=== PATIENT | female | born 1955 | race Caucasian/White ===

== ENCOUNTER 2020-01-11 09:54 | Outpatient (CLI) | payer OTHER, SELFPAY ==
[2020-01-11 13:11] LABS: Hematocrit 41.8 % (37.0-47.0); Hemoglobin 13.9 g/dL (12.0-15.0); Mean Corpuscular HGB Conc 33.3 g/dl (32-36); Mean Corpuscular Hemoglobin 33.8 pg (26-34); Mean Corpuscular Volume 101.7 fl (80-100); Mean Platelet Volume 11.5 fl (7.4-10.4); Platelet Count Result 309 k/mm3 (150-375); Red Blood Count 4.11 M/mm3 (4.2-5.4); Red Cell Distribution Width 13.2 % (11.5-14.5); White Blood Count 7.2 K/mm3 (4.5-10.0)
[2020-01-11 13:15] LABS: Add Urine Microscopic? YES; Appearance Urine Clear (Clear); Bacteria Urine Trace /hpf; Bilirubin Urine Negative (Negative); Blood Urine Negative (Negative); Color Urine Yellow (Yellow); Glucose Urine UA Negative (Negative); Ketones Urine Negative (Negative); Leukocyte Esterase Ur Trace LEU/UL (Negative); Nitrate Urine Negative (Negative); Protein Urine Negative (Negative); RBC Urine 0-2 /hpf (0-2); Specific Grav Ur 1.009 (1.001-1.035); Squamous Epithelial Cell Urine Rare /hpf (Few); Urobilinogen Urine Negative mg/dL (<2.0); WBC Urine 0-3 /hpf
[2020-01-11 13:17] LABS: Alanine Aminotransferase 21 U/L (4-35); Albumin Level 4.4 g/dL (3.5-5.1); Alkaline Phosphatase 72 U/L (38-126); Aspartate Amino Transferase 24 U/L (14-36); Bilirubin,Total 0.5 mg/dL (0.2-1.3); Blood Urea Nitrogen 15 mg/dL (7-17); CRP 0.7 mg/dL (<1.0); Calcium 9.5 mg/dL (8.4-10.2); Carbon Dioxide 23 mmol/L (22-30); Chloride 103 mmol/L (98-107); Estimated Glomerular Filt Rate > 60; Glucose 93 mg/dL (65-105); Potassium 4.9 mmol/L (3.4-5.0); Sodium 137 mmol/L (137-145)
== END 2020-01-11 09:55 | disposition home or self-care (01) ==
LOC: ANHWCLAB 16:15
PROVIDERS: Visit Provider Internal Medicine
DX: M35.3 Polymyalgia rheumatica (principal); M19.90 Unspecified osteoarthritis, unspecified site
CPT/HCPCS: 36415; 80053; 81001; 85027; 86140

== ENCOUNTER 2020-11-25 12:02 | Outpatient (CLI) | payer OTHER, SELFPAY ==
--- NOTE | ~2020-11-25 | XR_ITS ---
EXAMINATION: HAND-AURA ARTHRITIS 3+VIEWS DATE: 11/25/2020 12:22 INDICATION: Rheumatoid arthritis without rheumatoid factor. TECHNIQUE: Posteroanterior, lateral, and oblique views of the left and of the right hands as well as a ballcatchers view of both hands were obtained. COMPARISON: 11/29/2018 FINDINGS: Interval progression in mild palmar subluxation at the right second metacarpophalangeal joint. Bone a lignment is otherwise normal at the bilateral hands and wrists. No fractures. Mild relatively uniform joint space narrowing at multiple bilateral metacarpophalangeal joints without/osteophytosis or eros ions to more specifically suggest either osteoarthritis or inflammatory arthritis such as rheumatoid respectively. Mild osteoarthritis contrast by nonuniform joint space narrowing and/or small marginal osteophytes at the bilateral first carpal metacarpal, first metacarpophalangeal, first interphalangea l and multiple predominantly distal interphalangeal joints. Small lucencies at the left lunate and pr oximal pole of the scaphoid with thin sclerotic margins which would favor degenerative subchondral cy sts over erosions. IMPRESSION: 1. Mild polyarticular osteoarthritis with typical distribution. 2. Nonspecific mild joint space narrowing at the bilateral metacarpophalangeal joints without osteoph ytosis or erosions which remains equivocal for either osteoarthritis or inflammatory arthritis such a s rheumatoid. 3. Progression in mild palmar subluxation at the right second metacarpophalangeal joint. Reviewed, dictated and finalized at location B. SAMPLING AND MONITORING IMPRESSION: 1. Mild polyarticular osteoarthritis with typical distribution. 2. Nonspecific mild joint space narrowing at the bilateral metacarpophalangeal joints without osteophytosis or erosions which remains equivocal for either ost eoarthritis or inflammatory arthritis such as rheumatoid. 3. Progression in mild palmar subluxation at the right second metacarpophalange al joint.
== END 2020-11-25 12:03 ==
PROVIDERS: Visit Provider Internal Medicine
DX: M06.041 Rheumatoid arthritis without rheumatoid factor, right hand (principal); M06.042 Rheumatoid arthritis without rheumatoid factor, left hand
CPT/HCPCS: 73130

== ENCOUNTER 2020-12-08 14:58 | Outpatient (CLI) | payer OTHER, SELFPAY ==
--- NOTE | ~2020-12-08 | MR_ITS ---
EXAMINATION: MR hand LT wo con, MR hand RT wo con DATE: 12/08/2020 16:09 INDICATION: Rheumatoid arthritis with rheumatoid factor TECHNIQUE: 1. Magnetic resonance imaging (MRI) of the left hand was performed without intravenous contrast to in clude the wrist, carpus, metacarpals and digits. Sequences included axial, sagittal and coronal T1-we ighted FSE and T2-weighted FS FSE. 2. MRI of the right hand was performed without intravenous contrast to include the wrist, carpus, met acarpals and digits. Sequences included axial, sagittal and coronal T1-weighted FSE and T2-weighted F S FSE. COMPARISON: Bilateral hand radiographs dated 11/25/2020 FINDINGS: Left hand: Bone alignment is normal. There are tiny periarticular foci of increased T2 signal at the radial/vola r aspects of the heads of the third and fourth metacarpals more subtly at the ulnar side of the head of the second metacarpal near the insertion of the collateral ligaments, the first two signal intensi ty suggesting degenerative cyst versus erosions, the latter slightly less intense with differential i ncluding focal reactive edema. Bone marrow signal is otherwise normal. Due to the [id number] encom passing the entire hand and wrist for assessment of joint space narrowing is less than with the prior radiographs where there were tiny marginal osteophytes and mild joint space narrowing is present det cherrie. Physiologic amount fluid in the joint spaces. No significant synovitis at about the joint spac e or along the tendon sheaths. The flexor and extensor tendons appear normal as do the collateral lig ament complexes. Small focus of susceptibility artifact centered along the skin surface between the p almar aspect of the first distal phalanx and the radial side of the base of the second proximal phala nx. Right hand: Bone alignment is normal. As at the contralateral left hand there are small foci of periarticular inc reased T2 signal at the ulnar side of the head of the second metacarpal and more prominently at the u lnar side of the head of the second metacarpal, the latter with thin sclerotic margins evident on the prior radiographs. Additional more prominent increased T2 signal associated with chronic cystic schrader ges with sclerotic margins and with mild surrounding marrow edema at the ulnar side of the lunate and at the ulnar side of the scaphoid, the former which could be related to ulnocarpal impaction with lee ggestion of mild ulnar positive variance. Very small small amount of fluid consistent with tenosynovi tis along the otherwise normal-appearing flexor tendons at the first proximal phalanx and at the head of the second metacarpal. IMPRESSION: 1. Small periarticular foci of increased fluid signal at the heads of several metacarpals both the le ft and right hands suggesting possibility of an inflammatory arthritis. The distribution at the metac arpophalangeal joints would be atypical for rheumatoid although no significant joint space narrowing is appreciated on the prior radiographs. Differential would also include gout. 2. Additional T2 hyperintense lesions with sclerotic margins at the right lunate and base of the scap hoid which could represent chronic erosions but more likely to represent degenerative cystic change, the lunate potentially related to ulnocarpal impaction with mild right ulnar positive variance. 3. Mild tenosynovitis along the flexor tendons of the right first and second digits which could be re lated to either trauma/overuse or inflammatory including gout or rheumatoid. Reviewed, dictated and finalized at location A. STOR RELATIONS COORDINATOR IMPRESSION: 1. Small periarticular foci of increased fluid signal at the heads of several m etacarpals both the left and right hands suggesting possibility of an inflammat
== END 2020-12-08 14:59 | disposition home or self-care (01) ==
PROVIDERS: Visit Provider Internal Medicine
DX: M06.041 Rheumatoid arthritis without rheumatoid factor, right hand (principal); M06.042 Rheumatoid arthritis without rheumatoid factor, left hand; M89.9 Disorder of bone, unspecified; M65.842 Other synovitis and tenosynovitis, left hand; M65.841 Other synovitis and tenosynovitis, right hand
CPT/HCPCS: 73218

== ENCOUNTER 2020-12-31 13:37 | Outpatient (CLI) | payer OTHER, SELFPAY ==
[2020-12-31 16:56] LABS: Hematocrit 39.4 % (37.0-47.0); Hemoglobin 13.5 g/dL (12.0-15.0); Mean Corpuscular HGB Conc 34.3 g/dl (32-36); Mean Corpuscular Hemoglobin 33.6 pg (26-34); Mean Platelet Volume 11.7 fl (7.4-10.4); Platelet Count Result 289 k/mm3 (150-375); Red Blood Count 4.02 M/mm3 (4.2-5.4); Red Cell Distribution Width 12.7 % (11.5-14.5)
[2020-12-31 16:59] LABS: Add Urine Microscopic? YES; Appearance Urine Clear (Clear); Bilirubin Urine Negative (Negative); Blood Urine Negative (Negative); Color Urine Colorless (Yellow); Glucose Urine UA Negative (Negative); Ketones Urine Negative (Negative); Leukocyte Esterase Ur 1+ LEU/UL (Negative); Nitrate Urine Negative (Negative); Protein Urine Negative (Negative); RBC Urine 0-2 /hpf (0-2); Specific Grav Ur 1.008 (1.001-1.035); Squamous Epithelial Cell Urine Few /hpf (Few); Urobilinogen Urine Negative mg/dL (<2.0); WBC Urine 0-3 /hpf
[2020-12-31 17:09] LABS: Alanine Aminotransferase 17 U/L (4-35); Albumin Level 4.3 g/dL (3.5-5.1); Alkaline Phosphatase 55 U/L (38-126); Anion Gap 9 mmol/L (8-16); Aspartate Amino Transferase 25 U/L (14-36); Bilirubin,Total 0.4 mg/dL (0.2-1.3); Blood Urea Nitrogen 19 mg/dL (7-17); CRP < 0.5 mg/dL (<1.0); Calcium 9.6 mg/dL (8.4-10.2); Carbon Dioxide 25 mmol/L (22-30); Chloride 103 mmol/L (98-107); Estimated Glomerular Filt Rate > 60; Glucose 72 mg/dL (65-105); Potassium 4.6 mmol/L (3.4-5.0); Sodium 137 mmol/L (137-145)
[2020-12-31 17:38] LABS: Erythrocyte Sedimentation Rate 15 mm/hr (0-20)
== END 2020-12-31 13:38 | disposition home or self-care (01) ==
LOC: ANHWCLAB 13:40
PROVIDERS: Referring Provider Internal Medicine; Visit Provider Internal Medicine
DX: Z79.899 Other long term (current) drug therapy (principal); M06.041 Rheumatoid arthritis without rheumatoid factor, right hand; M06.042 Rheumatoid arthritis without rheumatoid factor, left hand; M19.90 Unspecified osteoarthritis, unspecified site
CPT/HCPCS: 36415; 80053; 81001; 85027; 85652; 86140

== ENCOUNTER 2021-05-28 07:16 | Outpatient (CLI) | payer OTHER, SELFPAY ==
--- NOTE | ~2021-05-28 | MM_ITS ---
EXAMINATION: MM screening ceasar BI w jack HISTORY: Screening mammogram TECHNIQUE: Craniocaudal and mediolateral oblique 3-D tomosynthesis images were obtained and synthetic 2-D images were generated. CAD analysis was submitted and interpreted. COMPARISON: 03/15/2019, 02/25/2017, 01/14/2016 and lateral digital screening mammogram examinations BREAST PARENCHYMAL COMPOSITION: The breasts are almost entirely fatty. FINDINGS: There is no evidence of suspicious mass, calcification, or architectural distortion to sugg est malignancy in either breast. There has been no suspicious interval change. IMPRESSION: 1. No mammographic evidence of malignancy. 2. Recommend routine screening mammography in one year. BI-RADS Category 1: Negative Reviewed, dictated and finalized at location A.
== END 2021-05-28 07:17 | disposition home or self-care (01) ==
PROVIDERS: Visit Provider Physician Assistant
DX: Z12.31 Encounter for screening mammogram for malignant neoplasm of breast (principal)
CPT/HCPCS: 77063; 77067

== ENCOUNTER 2021-08-12 07:33 | Outpatient (CLI) | payer OTHER, SELFPAY ==
[2021-08-12 15:10] LABS: Hematocrit 36.8 % (37.0-47.0); Hemoglobin 12.9 g/dL (12.0-15.0); Mean Corpuscular HGB Conc 35.1 g/dl (32-36); Mean Corpuscular Hemoglobin 35.9 pg (26-34); Mean Corpuscular Volume 102.5 fl (80-100); Platelet Count Result 320 k/mm3 (150-375); Red Blood Count 3.59 M/mm3 (4.2-5.4); Red Cell Distribution Width 13.2 % (11.5-14.5); White Blood Count 5.5 K/mm3 (4.5-10.0)
[2021-08-12 15:18] LABS: Alanine Aminotransferase 23 U/L (4-35); Albumin Level 4.5 g/dL (3.5-5.1); Alkaline Phosphatase 56 U/L (38-126); Anion Gap 10 mmol/L (8-16); Aspartate Amino Transferase 29 U/L (14-36); Bilirubin,Total 0.5 mg/dL (0.2-1.3); Blood Urea Nitrogen 13 mg/dL (7-17); CRP < 0.5 mg/dL (<1.0); Carbon Dioxide 23 mmol/L (22-30); Chloride 103 mmol/L (98-107); Estimated Glomerular Filt Rate > 60; Glucose 127 mg/dL (65-110); Sodium 136 mmol/L (137-145)
[2021-08-12 15:57] LABS: Add Urine Microscopic? YES; Appearance Urine Clear (Clear); Bilirubin Urine Negative (Negative); Blood Urine Negative (Negative); Color Urine Straw (Yellow); Glucose Urine UA Negative (Negative); Ketones Urine Negative (Negative); Leukocyte Esterase Ur Trace LEU/UL (Negative); Nitrate Urine Negative (Negative); Protein Urine Negative (Negative); RBC Urine 0-2 /hpf (0-2); Specific Grav Ur 1.004 (1.001-1.035); Transitional Epi Cells Urine Rare /hpf (None Seen); Urobilinogen Urine Negative mg/dL (<2.0); WBC Urine 0-3 /hpf
[2021-08-12 16:00] LABS: Erythrocyte Sedimentation Rate 19 mm/hr (0-20)
[2021-08-14 23:45] LABS: NIL 0.07 IU/mL; Quantiferon TB Plus, 1T NEGATIVE (NEGATIVE); TB1-NIL <0.00 IU/mL; TB2-NIL <0.00 IU/mL
== END 2021-08-12 07:34 | disposition home or self-care (01) ==
PROVIDERS: Visit Provider Internal Medicine
DX: M06.041 Rheumatoid arthritis without rheumatoid factor, right hand (principal); M06.042 Rheumatoid arthritis without rheumatoid factor, left hand; M19.90 Unspecified osteoarthritis, unspecified site
CPT/HCPCS: 36415; 80053; 81001; 85027; 85652; 86140; 86480

== ENCOUNTER 2021-12-07 10:34 | Outpatient (CLI) | payer OTHER, SELFPAY ==
[2021-12-07 16:46] LABS: Hematocrit 45.1 % (37.0-47.0); Hemoglobin 15.1 g/dL (12.0-15.0); Mean Corpuscular HGB Conc 33.5 g/dl (32-36); Mean Corpuscular Hemoglobin 34.7 pg (26-34); Mean Corpuscular Volume 103.7 fl (80-100); Mean Platelet Volume 10.8 fl (7.4-10.4); Platelet Count Result 332 k/mm3 (150-375); Red Blood Count 4.35 M/mm3 (4.2-5.4); Red Cell Distribution Width 12.4 % (11.5-14.5); White Blood Count 6.9 K/mm3 (4.5-10.0)
[2021-12-07 17:21] LABS: Erythrocyte Sedimentation Rate 11 mm/hr (0-20)
[2021-12-07 17:41] LABS: Alanine Aminotransferase 30 U/L (4-35); Albumin Level 4.9 g/dL (3.5-5.1); Alkaline Phosphatase 58 U/L (38-126); Anion Gap 9 mmol/L (8-16); Aspartate Amino Transferase 35 U/L (14-36); Bilirubin,Total 0.7 mg/dL (0.2-1.3); Blood Urea Nitrogen 13 mg/dL (7-17); CRP < 0.5 mg/dL (<1.0); Calcium 9.9 mg/dL (8.4-10.2); Carbon Dioxide 25 mmol/L (22-30); Chloride 101 mmol/L (98-107); Estimated Glomerular Filt Rate > 60; Glucose 84 mg/dL (65-110); Potassium 4.5 mmol/L (3.4-5.0); Sodium 135 mmol/L (137-145)
[2021-12-08 07:58] LABS: Add Urine Microscopic? YES; Appearance Urine Clear (Clear); Bilirubin Urine Negative (Negative); Blood Urine Negative (Negative); Color Urine Straw (Yellow); Glucose Urine UA Negative (Negative); Ketones Urine Negative (Negative); Leukocyte Esterase Ur Trace LEU/UL (Negative); Nitrate Urine Negative (Negative); Protein Urine Negative (Negative); RBC Urine 0-2 /hpf (0-2); Specific Grav Ur 1.009 (1.001-1.035); Squamous Epithelial Cell Urine Rare /hpf (Few); Urobilinogen Urine Negative mg/dL (<2.0); WBC Urine 0-3 /hpf
== END 2021-12-07 10:35 | disposition home or self-care (01) ==
LOC: ANHWCLAB 10:37
PROVIDERS: Referring Provider Internal Medicine; Visit Provider Internal Medicine
DX: M06.041 Rheumatoid arthritis without rheumatoid factor, right hand (principal); M06.042 Rheumatoid arthritis without rheumatoid factor, left hand; R06.02 Shortness of breath; M19.90 Unspecified osteoarthritis, unspecified site
CPT/HCPCS: 36415; 80053; 81001; 85027; 85652; 86140

== ENCOUNTER 2022-03-03 07:32 | Outpatient (CLI) | payer OTHER, SELFPAY ==
[2022-03-03 16:24] LABS: Hematocrit 42.1 % (37.0-47.0); Hemoglobin 13.9 g/dL (12.0-15.0); Mean Corpuscular Hemoglobin 35.2 pg (26-34); Mean Corpuscular Volume 106.6 fl (80-100); Mean Platelet Volume 10.8 fl (7.4-10.4); Platelet Count Result 313 k/mm3 (150-375); Red Blood Count 3.95 M/mm3 (4.2-5.4); White Blood Count 7.8 K/mm3 (4.5-10.0)
[2022-03-03 16:35] LABS: Alanine Aminotransferase 20 U/L (4-35); Albumin Level 4.7 g/dL (3.5-5.1); Alkaline Phosphatase 57 U/L (38-126); Anion Gap 7 mmol/L (8-16); Aspartate Amino Transferase 31 U/L (14-36); Bilirubin,Total 0.3 mg/dL (0.2-1.3); Blood Urea Nitrogen 16 mg/dL (7-17); CRP < 0.5 mg/dL (<1.0); Calcium 9.1 mg/dL (8.4-10.2); Carbon Dioxide 28 mmol/L (22-30); Chloride 100 mmol/L (98-107); Estimated Glomerular Filt Rate > 60; Glucose 67 mg/dL (65-110); Potassium 4.2 mmol/L (3.4-5.0); Sodium 135 mmol/L (137-145)
[2022-03-03 16:37] LABS: Appearance Urine Clear (Clear); Bilirubin Urine Negative (Negative); Blood Urine Negative (Negative); Color Urine Yellow (Yellow); Glucose Urine UA Negative (Negative); Ketones Urine Negative (Negative); Leukocyte Esterase Ur 1+ LEU/UL (Negative); Nitrate Urine Negative (Negative); Protein Urine Negative (Negative); Urobilinogen Urine 0.2 mg/dL (<2.0); pH Urine 6.5 (5.0-9.0)
[2022-03-03 16:42] LABS: Bacteria Urine Trace /hpf; Mucus Urine Rare /lpf; RBC Urine 0-2 /hpf (0-2); Squamous Epithelial Cell Urine Occasional /hpf (Few); WBC Urine 0-3 /hpf
[2022-03-03 17:06] LABS: Erythrocyte Sedimentation Rate 12 mm/hr (0-20)
[2022-03-03 17:13] LABS: Add Urine Microscopic? YES
== END 2022-03-03 07:33 | disposition home or self-care (01) ==
LOC: ANHWCLAB 07:36
PROVIDERS: Visit Provider Internal Medicine
DX: M06.041 Rheumatoid arthritis without rheumatoid factor, right hand (principal); M06.042 Rheumatoid arthritis without rheumatoid factor, left hand
CPT/HCPCS: 36415; 80053; 81001; 85027; 85652; 86140

== ENCOUNTER → 2022-10-30 08:18 | Outpatient (CLI) | payer OTHER, SELFPAY ==
--- NOTE | ~2022-10-30 | MR_ITS ---
EXAMINATION: MR lumbar spine wo con DATE: 10/30/2022 08:55 INDICATION: Chronic low back pain. Lumbar degenerative disc disease. TECHNIQUE: Magnetic resonance imaging (MRI) of the lumbar spine was performed without intravenous con trast. Sequences included sagittal T2-weighted FSE, sagittal T2-weighted FS FSE, sagittal T1-weighted FSE, and axial T2-weighted FSE. COMPARISON: None FINDINGS: Bone alignment is normal. Vertebral body heights are normal. There is moderately decreased disc height at T12-L1 and L1-L2, mildly decreased disc height at L2-L3, moderately decreased disc hei ght at L3-L4, and severely decreased disc height at L4-L5 and L5-S1 with endplate remodeling. The dis farhad spinal cord signal intensity is normal. The conus medullaris is at T12-L1. The following disc lev els are specifically discussed: L1-L2: The disc is bulging and has an annular fissure. There is mild bilateral facet joint osteoarthr itis. There is mild bilateral neural foraminal stenosis. There is mild central canal stenosis. L2-L3: The disc is bulging and has an annular fissure. There is mild right facet joint osteoarthritis . There is mild bilateral neural foraminal stenosis. There is mild central canal stenosis. L3-L4: The disc is bulging and has an annular fissure. There is mild bilateral facet joint osteoarthr itis. There is mild bilateral neural foraminal stenosis. There is mild central canal stenosis. L4-L5: The disc is bulging and has an annular fissure. There is no facet joint osteoarthritis. There is mild bilateral neural foraminal stenosis. There is mild central canal stenosis. L5-S1: The disc is bulging and has an annular fissure. There is mild bilateral facet joint osteoarthr itis. There is mild bilateral neural foraminal stenosis. There is mild central canal stenosis. IMPRESSION: 1. Severe lumbar spondylosis. Reviewed, dictated and finalized at location A. WARE INSTALLATION ENGINEER
== END ==
PROVIDERS: PCP Physician Assistant; Visit Provider Physician Assistant
DX: M51.36 Other intervertebral disc degeneration, lumbar region (principal); M47.896 Other spondylosis, lumbar region
CPT/HCPCS: 72148

== ENCOUNTER 2022-11-03 08:11 | Outpatient (CLI) | payer OTHER, SELFPAY ==
--- NOTE | 2022-11-04 10:33 | WPDHOMESLEEP ---
Sleep Study - Home Unattended Date of Study: 11/03/22 Ordering Provider: Tina Gallagher, PA Interpreting Provider: Shalini Kam MD [facility] Type: Watch PAT Height: 1.6 m Weight: 104.326 kg Body Mass Index: 40.7 Neck Circumference (inches): 15.75 [place]: 8 Reason for Sleep Study Hypersomnolence Sleep History Ciarra Rainey is a 66-year-old woman with sleeping difficulties for several years. She has excessive daytime sleepiness. She wakes up feeling tired. This happens nightly. She has difficulty falling asleep and staying asleep. She has pyrometer temperature regulator awakenings. She occasionally awakens from sleep feeling short of breath. She occasionally awakens at night with heartburn, belching or coughing. She rarely snores. She does not snore loudly enough that others complain about it. She rarely has trouble sleeping with a cold. She rarely wakes up gasping for breath at night. She rarely has breathing problems at night observed by others. She occasionally sweats excessively at night and occasionally notices her heart pounding or beating irregularly at night. She rarely falls asleep during the day, rarely falls asleep involuntarily, never falls asleep while driving. She does not have loss of muscle tone with strong emotion. She rarely has daytime difficulties due to excessive sleepiness. She rarely feels paralyzed on waking or falling asleep. She constantly has vivid dreamlike scenes upon awakening falling asleep. She rarely feels afraid to go to sleep. She rarely has nightmares. She rarely remembers her dreams. She rarely has racing thoughts. She does not feel sad or depressed. She occasionally feels anxious. She occasionally has muscular tension. She rarely notices parts of her body jerking. She rarely kicks at night. She rarely has crawling and aching feelings in her legs. She occasionally has leg pain at night. She occasionally has morning jaw pain. She frequently grinds her teeth during sleep. She occasionally is bothered by pain during the day. She rarely is awakened by pain at night. She occasionally wakes up feeling stiff in the morning with sore achy muscles and pain in the neck and spine. She has headaches, palpitations and fatigue. She has insomnia. She has concentration difficulties. She takes antacids regularly. Normal bedtime is Between 9:00 p.m. and 10:00 p.m., taking 15-30 minutes to fall asleep, typically waking 2-3 times during the night. While awake, she goes to the bathroom and gets a drink of water. These awakenings occur soon after falling asleep, sometimes in the middle of the night and sometimes in the pyrometer temperature regulator hours. It may take her 1/2 hour to 1 hour to return to sleep. Normal wake time is 5:00 a.m.. On weekends, she goes to bed later, between 10:00 p.m. and 11:00 p.m., wakes between 5:00 a.m. and 6:00 a.m.. She estimates getting between 5 and 6 hours of sleep at night. She does not take naps. A short nap is not refreshing. She is usually drowsy in the morning for 1 hour or longer. Habits: Quit tobacco 14 years ago. Caffeine 3-4 cups of coffee in the morning. No alcohol or recreational drugs. [facility] Past Medical History Medical History Anxiety Arthritis GCA (giant cell arteritis) (~10/2018) Generalized osteoarthritis of multiple sites Migraines Other specified counseling Seronegative rheumatoid arthritis of both hands SOB (shortness of breath) Surgical History Surgical History History of knee replacement Hx of cholecystectomy Family History Family History Sibling Family history of obesity Depression Asthma Family history of diabetes mellitus in first degree relative Patient's sister is Hypertension Father Hypertension Family history of pancreatic cancer Patient's father is Moth
[2022-11-04 11:22] VITALS: BMI 40.7
== END 2022-11-04 08:19 | disposition home or self-care (01) ==
LOC: ANHCSM 08:13
PROVIDERS: PCP Physician Assistant; Visit Provider Physician Assistant
DX: G47.10 Hypersomnia, unspecified (principal); R06.83 Snoring; Z68.41 Body mass index [BMI] 40.0-44.9, adult
CPT/HCPCS: 95800

== ENCOUNTER 2022-12-08 12:47 | Outpatient (CLI) | payer OTHER, SELFPAY ==
[2022-12-08 13:27] LABS: Appearance Urine Clear (Clear); Bilirubin Urine Negative (Negative); Blood Urine Negative (Negative); Color Urine Yellow (Yellow); Glucose Urine UA Negative (Negative); Ketones Urine Negative (Negative); Leukocyte Esterase Ur 1+ LEU/UL (Negative); Nitrate Urine Negative (Negative); Protein Urine Negative (Negative); Specific Grav Ur 1.015 (1.001-1.035); Urobilinogen Urine 0.2 mg/dL (<2.0)
[2022-12-08 13:27] LABS: Hematocrit 40.8 % (37.0-47.0); Hemoglobin 13.7 g/dL (12.0-15.0); Mean Corpuscular HGB Conc 33.6 g/dl (32-36); Mean Corpuscular Volume 104.3 fl (80-100); Mean Platelet Volume 10.4 fl (7.4-10.4); Platelet Count Result 292 k/mm3 (150-375); Red Blood Count 3.91 M/mm3 (4.2-5.4); Red Cell Distribution Width 13.2 % (11.5-14.5); White Blood Count 6.4 K/mm3 (4.5-10.0)
[2022-12-08 13:31] LABS: Bacteria Urine Trace /hpf; RBC Urine 0-2 /hpf (0-2); Squamous Epithelial Cell Urine Rare /hpf (Few); Transitional Epi Cells Urine Rare /hpf (None Seen); WBC Urine 0-3 /hpf
[2022-12-08 13:32] LABS: Add Urine Microscopic? YES
[2022-12-08 13:48] LABS: Alanine Aminotransferase 24 U/L (6-35); Albumin Level 4.6 g/dL (3.5-5.1); Alkaline Phosphatase 69 U/L (38-126); Anion Gap 4 mmol/L (8-16); Aspartate Amino Transferase 27 U/L (14-36); Bilirubin,Total 0.6 mg/dL (0.2-1.3); Blood Urea Nitrogen 17 mg/dL (7-17); CRP < 0.5 mg/dL (<1.0); Calcium 9.3 mg/dL (8.4-10.2); Carbon Dioxide 29 mmol/L (22-30); Chloride 100 mmol/L (98-107); Estimated Glomerular Filt Rate > 60; Glucose 86 mg/dL (65-110); Potassium 4.4 mmol/L (3.4-5.0); Sodium 133 mmol/L (137-145)
[2022-12-08 13:53] LABS: Erythrocyte Sedimentation Rate 14 mm/hr (0-20)
[2022-12-10 19:58] LABS: NIL 0.02 IU/mL; Quantiferon TB Plus, 1T NEGATIVE (NEGATIVE)
== END 2022-12-08 12:48 | disposition home or self-care (01) ==
PROVIDERS: PCP Physician Assistant; Visit Provider Internal Medicine
DX: M31.6 Other giant cell arteritis (principal); M06.041 Rheumatoid arthritis without rheumatoid factor, right hand; M06.042 Rheumatoid arthritis without rheumatoid factor, left hand; M19.90 Unspecified osteoarthritis, unspecified site
CPT/HCPCS: 36415; 80053; 81001; 85027; 85652; 86140; 86480

== ENCOUNTER 2023-01-07 06:54 | Outpatient (CLI) | payer OTHER, SELFPAY ==
--- NOTE | 2023-01-07 | ECG_ITS ---
Measurements Intervals [place] Rate: 81 P: 57 MO: 177 QRS: 22 QRSD: 89 T: 57 QT: 352 QTc: 410 Interpretive Statements SINUS RHYTHM ANTERIOR INFARCT, AGE INDETERMINATE ABNORMAL ECG NO PREVIOUS ECG AVAILABLE FOR COMPARISON Electronically Signed On 01-07-2023 7:52:36 RADIAL DRILL PRESS OPERATOR FOR PLASTIC by Mikey Sotelo D.O.
--- NOTE | ~2023-01-07 | XR_ITS ---
EXAMINATION: XR cervical spine 4-5V DATE: 01/07/2023 08:17 INDICATION: Posterior neck pain. TECHNIQUE: 4 views of cervical spine were obtained. COMPARISON: None. FINDINGS: There is 2 mm anterolisthesis of C4 on C5. There is 4 degrees dextrocurvature of cervical s pine. There is mild kyphosis of cervical spine. Vertebral body heights are normal. There is moderatel y decreased disc height at C4-C5 and severely decreased disc height at C5-C6 and C6-C7. There is mult ilevel uncovertebral joint osteoarthritis, severe bilaterally at C5-C6 and C6-C7. There is multilevel mild to moderate facet joint osteoarthritis. There is mild central canal stenosis at C4-C5, C5-C6, a nd C6-C7. No prevertebral soft tissue swelling. IMPRESSION: 1. Severe cervical spondylosis. Reviewed, dictated and finalized at location A. P LEADER SEMICONDUCTOR TESTING
--- NOTE | ~2023-01-07 | XR_ITS ---
Clinical Indication: Shortness of breath PA and lateral views of the chest: Comparison: 04/08/2010 Findings: The lungs are clear, without evidence of focal consolidation or pleural effusion. Cardiome diastinal silhouette is within normal limits. Bones and soft tissues are unremarkable. Impression: Normal chest. Reviewed, dictated and finalized at [facility]. IAL EDUCATION COORDINATOR Impression: Normal chest.
[2023-01-07 07:23] LABS: Basophils Percent Auto 0.6 % (0.2-1.2); Eosinophils Absolute Auto 0.1 K/mm3 (0-0.3); Eosinophils Percent Auto 4.3 % (0-4.4); Hematocrit 37.9 % (37.0-47.0); Hemoglobin 13.1 g/dL (12.0-15.0); Immature Granulocyte Absolute 0.01 K/mm3 (0.00-0.031); Immature Granulocyte Percent A 0.3 % (0-0.5); Lymphocytes Absolute Auto 1.04 K/mm3 (0.9-3.2); Lymphocytes Percent Auto 32.3 % (18.3-44.2); Mean Corpuscular HGB Conc 34.6 g/dl (32-36); Mean Corpuscular Hemoglobin 34.8 pg (26-34); Mean Corpuscular Volume 100.8 fl (80-100); Monocytes Absolute Auto 0.4 K/mm3 (0.1-0.6); Monocytes Percent Auto 11.2 % (2.6-8.5); Neutrophils Absolute Auto 1.7 K/mm3 (1.3-6.7); Neutrophils Percent Auto 51.3 % (45.5-73.1); Platelet Count Result 270 k/mm3 (150-375); Red Blood Count 3.76 M/mm3 (4.2-5.4); Red Cell Distribution Width 13.5 % (11.5-14.5); White Blood Count 3.2 K/mm3 (4.5-10.0)
[2023-01-07 07:46] LABS: Alanine Aminotransferase 24 U/L (6-35); Albumin Level 4.5 g/dL (3.5-5.1); Alkaline Phosphatase 64 U/L (38-126); Anion Gap 7 mmol/L (8-16); Aspartate Amino Transferase 25 U/L (14-36); Bilirubin,Total 0.7 mg/dL (0.2-1.3); Blood Urea Nitrogen 12 mg/dL (7-17); CRP < 0.5 mg/dL (<1.0); Calcium 9.1 mg/dL (8.4-10.2); Carbon Dioxide 27 mmol/L (22-30); Chloride 105 mmol/L (98-107); Estimated Glomerular Filt Rate > 60; Glucose 100 mg/dL (65-110); Magnesium 2.1 mg/dL (1.6-2.3); Potassium 4.6 mmol/L (3.4-5.0); Sodium 139 mmol/L (137-145)
[2023-01-07 07:53] LABS: Erythrocyte Sedimentation Rate 22 mm/hr (0-20)
[2023-01-07 07:59] LABS: Appearance Urine Clear (Clear); Bacteria Urine None Seen /hpf; Bilirubin Urine Negative (Negative); Blood Urine Negative (Negative); Color Urine Yellow (Yellow); Glucose Urine UA Negative (Negative); Ketones Urine Negative (Negative); Leukocyte Esterase Ur Trace LEU/UL (Negative); Nitrate Urine Negative (Negative); Non Pathogenic Casts 0-2; Protein Urine Negative (Negative); RBC Urine 0-2 /hpf (0-2); Specific Grav Ur 1.004 (1.001-1.035); Squamous Epithelial Cell Urine None seen /hpf (Few); Urobilinogen Urine 0.2 mg/dL (<2.0); WBC Urine 0-5 /hpf
[2023-01-07 08:09] LABS: Add Urine Microscopic? YES
== END 2023-01-07 06:55 | disposition home or self-care (01) ==
PROVIDERS: PCP Physician Assistant; Visit Provider Physician Assistant
DX: R53.83 Other fatigue (principal); M79.10 Myalgia, unspecified site; M35.3 Polymyalgia rheumatica; R10.9 Unspecified abdominal pain; M47.892 Other spondylosis, cervical region; R94.31 Abnormal electrocardiogram [ECG] [EKG]
CPT/HCPCS: 36415; 71046; 72050; 80053; 81001; 82306; 82607; 83735; 84443; 85025; 85652; 86140; 93005

== ENCOUNTER 2023-01-21 06:55 | Outpatient (CLI) | payer OTHER, SELFPAY ==
[2023-01-21 07:10] LABS: Basophils Percent Auto 0.6 % (0.2-1.2); Eosinophils Absolute Auto 0.1 K/mm3 (0-0.3); Eosinophils Percent Auto 1.5 % (0-4.4); Hematocrit 40.4 % (37.0-47.0); Hemoglobin 13.6 g/dL (12.0-15.0); Immature Granulocyte Absolute 0.06 K/mm3 (0.00-0.031); Immature Granulocyte Percent A 0.9 % (0-0.5); Lymphocytes Absolute Auto 1.19 K/mm3 (0.9-3.2); Lymphocytes Percent Auto 17.4 % (18.3-44.2); Mean Corpuscular HGB Conc 33.7 g/dl (32-36); Mean Corpuscular Volume 103.9 fl (80-100); Mean Platelet Volume 9.3 fl (7.4-10.4); Monocytes Absolute Auto 0.7 K/mm3 (0.1-0.6); Monocytes Percent Auto 10.1 % (2.6-8.5); Neutrophils Absolute Auto 4.8 K/mm3 (1.3-6.7); Neutrophils Percent Auto 69.5 % (45.5-73.1); Platelet Count Result 316 k/mm3 (150-375); Red Blood Count 3.89 M/mm3 (4.2-5.4); White Blood Count 6.8 K/mm3 (4.5-10.0)
== END 2023-01-21 06:56 | disposition home or self-care (01) ==
PROVIDERS: PCP Physician Assistant; Visit Provider Physician Assistant
DX: D72.818 Other decreased white blood cell count (principal)
CPT/HCPCS: 36415; 85025

== ENCOUNTER 2023-01-27 08:14 | Outpatient (CLI) | payer OTHER, SELFPAY ==
--- NOTE | 2023-01-27 | EST_ITS ---
Patient Info Name: Ciarra Rainey Age: 67 years : 1955 Gender: Female Ht: 63 in Wt: 240 lbs BSA: 2.26 m2 HR: 68 bpm BP: 127 / 72 mmHg Heart Rhythm: Sinus Rhythm Exam Date: 01/27/2023 9:31 AM Exam Location: [facility] Stress Patient Status: Outpatient Admit Date: 01/27/2023 Staff Ordering Physician: Elliott, Tina NÚÑEZ Attending Provider: Elliott, Tina NÚÑEZ Exercise Technologist: Khalida Sandoval CT Nurse: jim vitale Exam Type: CA stress test treadmill w NM Study Info Indications R94.31 - Abnormal electrocardiogram ECG EKG R06.09 - Other forms of dyspnea A nuclear stress test was performed. Summary 1. Exercise capacity impaired at <6 METS. 2. Hypertensive blood pressure response with exercise. 3. No abnormal ST/T wave changes diagnostic of ischemia with exercise. 4. Please correlate with nuclear medicine images, reported separately. Protocol: [facility] ECG Details Stage: REST Duration (min): 1 min : 57 sec Speed (mph): 0.0 Grade (%): 0 HR (bpm): 68 SBP (mmHg): 127 DBP (mmHg): 72 METS: --- Stage: REST Duration (min): 6 min : 29 sec Speed (mph): 0.0 Grade (%): 0 HR (bpm): 71 SBP (mmHg): 127 DBP (mmHg): 72 METS: --- Stage: STAGE 1 Duration (min): 1 min : 0 sec Speed (mph): 1.7 Grade (%): 10 HR (bpm): 109 SBP (mmHg): 127 DBP (mmHg): 72 METS: --- Stage: STAGE 1 Duration (min): 2 min : 0 sec Speed (mph): 1.7 Grade (%): 10 HR (bpm): 132 SBP (mmHg): 127 DBP (mmHg): 72 METS: --- Stage: STAGE 1 Duration (min): 3 min : 0 sec Speed (mph): 1.7 Grade (%): 10 HR (bpm): 146 SBP (mmHg): 199 DBP (mmHg): 98 METS: --- Stage: STAGE 2 Duration (min): 0 min : 24 sec Speed (mph): 2.5 Grade (%): 12 HR (bpm): 152 SBP (mmHg): 199 DBP (mmHg): 98 METS: --- Stage: RECOVERY Duration (min): 0 min : 35 sec Speed (mph): 0.0 Grade (%): 0 HR (bpm): 147 SBP (mmHg): 199 DBP (mmHg): 98 METS: --- Stage: RECOVERY Duration (min): 1 min : 35 sec Speed (mph): 0.0 Grade (%): 0 HR (bpm): 117 SBP (mmHg): 199 DBP (mmHg): 98 METS: --- Stage: RECOVERY Duration (min): 2 min : 35 sec Speed (mph): 0.0 Grade (%): 0 HR (bpm): 100 SBP (mmHg): 199 DBP (mmHg): 98 METS: --- Stage: RECOVERY Duration (min): 3 min : 35 sec Speed (mph): 0.0 Grade (%): 0 HR (bpm): 88 SBP (mmHg): 201 DBP (mmHg): 82 METS: --- Stage: RECOVERY Duration (min): 4 min : 35 sec Speed (mph): 0.0 Grade (%): 0 HR (bpm): 91 SBP (mmHg): 162 DBP (mmHg): 88 METS: --- Stage: RECOVERY Duration (min): 4 min : 50 sec Speed (mph): 0.0 Grade (%): 0 HR (bpm): 88 SBP (mmHg): 162 DBP (mmHg): 88 METS: --- Rest HR: 71 bpm Peak HR: 153 bpm Rest Sys BP: 127 mmHg Peak Sys BP: 1
--- NOTE | ~2023-01-27 | NM_ITS ---
EXAMINATION: NM stress w perf spect multi DATE: 01/27/2023 12:28 INDICATION: Abnormal electrocardiogram. Dyspnea on exertion. TECHNIQUE: Rest images were obtained following intravenous administration of 11.0 mCi Tc99m tetrofosm in (Myoview). The patient performed an exercise activity. At peak exercise, 34.8 mCi Tc99m tetrofosmi n (Myoview) was administered intravenously, and supine and prone stress images were obtained. Data wa s reconstructed into short axis and horizontal and vertical long axis SPECT images. Gated SPECT image s were also obtained. COMPARISON: None. FINDINGS: There is no definite reversible or fixed perfusion abnormality to suggest ischemia or infar ction. There is no segmental wall motion abnormality. Left ventricular ejection fraction measures > 70%. IMPRESSION: 1. No definite ischemia or infarct. 2. Normal left ventricular ejection fraction measuring >70%. Reviewed, dictated and finalized at location A.
== END 2023-01-27 08:15 | disposition home or self-care (01) ==
PROVIDERS: PCP Physician Assistant; Visit Provider Physician Assistant
DX: R06.09 Other forms of dyspnea (principal); R94.31 Abnormal electrocardiogram [ECG] [EKG]
CPT/HCPCS: 78452; 93017; A9502

== ENCOUNTER → 2023-02-02 11:05 | Outpatient (CLI) | payer MEDICARE, SELFPAY ==
--- NOTE | ~2023-02-02 | MM_ITS ---
EXAMINATION: MM screening ceasar BI w jack HISTORY: Screening mammogram TECHNIQUE: Craniocaudal and mediolateral oblique 3-D tomosynthesis images were obtained and synthetic 2-D images were generated. CAD analysis was submitted and interpreted. COMPARISON: 05/28/2021, 03/15/2019, 02/25/2017 bilateral screening mammogram examinations BREAST PARENCHYMAL COMPOSITION: The breasts are almost entirely fatty. FINDINGS: There is no evidence of suspicious mass, calcification, or architectural distortion to sugg est malignancy in either breast. There has been no suspicious interval change. IMPRESSION: 1. No mammographic evidence of malignancy. 2. Recommend routine screening mammography in one year. BI-RADS Category 1: Negative Reviewed, dictated and finalized at location A.
== END ==
PROVIDERS: PCP Physician Assistant; Visit Provider Physician Assistant
DX: Z12.31 Encounter for screening mammogram for malignant neoplasm of breast (principal)
CPT/HCPCS: 77063; 77067

== ENCOUNTER 2023-02-10 12:43 | Outpatient (CLI) | payer OTHER, SELFPAY ==
--- NOTE | ~2023-02-10 | MR_ITS ---
EXAMINATION: MR cervical spine wo con DATE: 02/10/2023 13:45 INDICATION: Cervical degenerative disc disease. TECHNIQUE: Magnetic resonance imaging (MRI) of the cervical spine was performed without intravenous c ontrast. COMPARISON: Cervical spine radiographs 01/07/2023 FINDINGS: There is mild kyphosis of cervical spine. Vertebral body heights are normal. There is moder ately decreased disc height at C4-C5 and severely decreased disc height at C5-C6 and C6-C7 with endpl ate remodeling. The spinal cord signal intensity is normal. The following disc levels are specificall y discussed: C2-C3: There is a central protrusion. There is mild left uncovertebral joint osteoarthritis. There is severe right and mild left facet joint osteoarthritis. There is mild left neural foraminal stenosis. There is mild central canal stenosis. C3-C4: The disc is bulging. There is mild bilateral uncovertebral joint osteoarthritis. There is mild bilateral facet joint osteoarthritis. There is no neural foraminal stenosis. There is mild central c anal stenosis. C4-C5: The disc is bulging. There is severe bilateral uncovertebral joint osteoarthritis. There is se leland left facet joint osteoarthritis. There is moderate left neural foraminal stenosis. There is mild central canal stenosis. C5-C6: The disc is bulging. There is severe bilateral uncovertebral joint osteoarthritis. There is mi ld bilateral facet joint osteoarthritis. There is mild left neural foraminal stenosis. There is mild central canal stenosis. C6-C7: The disc is bulging. There is severe bilateral uncovertebral joint osteoarthritis. There is mo derate bilateral facet joint osteoarthritis. There is mild bilateral neural foraminal stenosis. There is mild central canal stenosis. C7-T1: The disc does not extend beyond the endplate margin. There is no uncovertebral joint osteoarth ritis. There is mild bilateral facet joint osteoarthritis. There is no neural foraminal stenosis. The re is no central canal stenosis. IMPRESSION: 1. Severe cervical spondylosis. Reviewed, dictated and finalized at location A.
== END 2023-02-10 12:44 | disposition home or self-care (01) ==
LOC: ANHIMG 12:46
PROVIDERS: PCP Physician Assistant; Visit Provider Physician Assistant
DX: M50.30 Other cervical disc degeneration, unspecified cervical region (principal); M47.812 Spondylosis without myelopathy or radiculopathy, cervical region
CPT/HCPCS: 72141

== ENCOUNTER 2023-04-01 14:58 | Outpatient (CLI) | payer OTHER, SELFPAY ==
--- NOTE | 2023-04-05 12:49 | WPDHOLTEREM ---
Holter/Event Monitor Holter/Event Monitor Date of procedure: 04/01/23 Holter/Event Procedure: 48 Hr Holter Monitor Indications: Palpitations Conclusion: 1. 48 hour holter monitor on 04/01/23. 2. Predominant rhythm is sinus rhythm. HR range 57-133 bpm; average HR 79 bpm. 3. There are 48 premature supraventricular complexes, 3 supraventricular couplets. There are 3 episodes of atrial tachycardia, fastest at 138 bpm and longest lasting 5 beats. 4. There are 43 premature ventricular complexes, 1 ventricular couplet and 2 ventricular triplet. No ventricular tachycardia. 5. No sinoatrial or atrioventricular blocks. No significant pauses greater than 2 seconds. 6. Patient reports symptoms of shortness of breath, chest discomfort, fast heart beats, palpitations which demonstrates sinus rhythm, HR range 76-108 bpm.
== END 2023-04-01 14:59 | disposition home or self-care (01) ==
LOC: ANHCARD 14:59
PROVIDERS: PCP Physician Assistant; Visit Provider Physician Assistant
DX: R00.2 Palpitations (principal)
CPT/HCPCS: 93225; 93226

== ENCOUNTER 2023-04-15 06:52 | Outpatient (CLI) | payer OTHER, SELFPAY ==
[2023-04-15 07:08] LABS: Basophils Percent Auto 0.5 % (0.2-1.2); Eosinophils Percent Auto 0.8 % (0-4.4); Hematocrit 36.8 % (37.0-47.0); Hemoglobin 12.7 g/dL (12.0-15.0); Immature Granulocyte Absolute 0.02 K/mm3 (0.00-0.031); Immature Granulocyte Percent A 0.5 % (0-0.5); Lymphocytes Absolute Auto 0.71 K/mm3 (0.9-3.2); Lymphocytes Percent Auto 18.6 % (18.3-44.2); Mean Corpuscular HGB Conc 34.5 g/dl (32-36); Mean Corpuscular Hemoglobin 35.6 pg (26-34); Mean Corpuscular Volume 103.1 fl (80-100); Mean Platelet Volume 9.7 fl (7.4-10.4); Monocytes Absolute Auto 0.5 K/mm3 (0.1-0.6); Monocytes Percent Auto 12.1 % (2.6-8.5); Neutrophils Absolute Auto 2.6 K/mm3 (1.3-6.7); Neutrophils Percent Auto 67.5 % (45.5-73.1); Platelet Count Result 276 k/mm3 (150-375); Red Blood Count 3.57 M/mm3 (4.2-5.4); White Blood Count 3.8 K/mm3 (4.5-10.0)
[2023-04-15 07:16] LABS: Add Urine Microscopic? YES; Appearance Urine Clear (Clear); Bacteria Urine None Seen /hpf; Bilirubin Urine Negative (Negative); Blood Urine Negative (Negative); Color Urine Yellow (Yellow); Glucose Urine UA Negative (Negative); Ketones Urine Negative (Negative); Leukocyte Esterase Ur Trace LEU/UL (Negative); Nitrate Urine Negative (Negative); Non Pathogenic Casts 0-2; Protein Urine Negative (Negative); RBC Urine 0-2 /hpf (0-2); Specific Grav Ur 1.007 (1.001-1.035); Squamous Epithelial Cell Urine None seen /hpf (Few); Urobilinogen Urine 0.2 mg/dL (<2.0); WBC Urine 0-5 /hpf
[2023-04-15 07:23] LABS: Alanine Aminotransferase 26 U/L (6-35); Albumin Level 4.4 g/dL (3.5-5.1); Alkaline Phosphatase 43 U/L (38-126); Anion Gap 8 mmol/L (8-16); Aspartate Amino Transferase 30 U/L (14-36); Bilirubin,Total 0.6 mg/dL (0.2-1.3); Blood Urea Nitrogen 14 mg/dL (7-17); Calcium 8.9 mg/dL (8.4-10.2); Carbon Dioxide 27 mmol/L (22-30); Chloride 103 mmol/L (98-107); Estimated Glomerular Filt Rate > 60; Glucose 97 mg/dL (65-110); Potassium 4.2 mmol/L (3.4-5.0); Sodium 138 mmol/L (137-145)
[2023-04-15 07:36] LABS: Erythrocyte Sedimentation Rate 15 mm/hr (0-20)
== END 2023-04-15 06:53 | disposition home or self-care (01) ==
LOC: ANHLAB 06:53
PROVIDERS: PCP Physician Assistant; Visit Provider Internal Medicine
DX: M06.9 Rheumatoid arthritis, unspecified (principal); Z79.899 Other long term (current) drug therapy
CPT/HCPCS: 36415; 80053; 81001; 85025; 85652

== ENCOUNTER 2023-04-22 01:13 | Day surgery (SDC) | payer OTHER, SELFPAY ==
[2023-04-12 13:37] VITALS: BMI 41.8
--- NOTE | 2023-04-21 12:40 | WPDANESEPPF ---
Anes - Initial Pre Proc Eval Procedure: Operation Date: 04/22/23 11:00 Proposed Procedures p Esophagogastroduodenoscopy - Grery Mccauley MD Date/Time: 04/21/23 12:40 Surgeon: Gerry Mccauley MD Pre Op Diagnosis: GERD Patient Data Age: 67 Gender: F Height: 1.6 m Weight: 107 kg Allergies Allergy/AdvReac Type Severity Reaction Status Date / Time No Known Allergies Allergy Verified 04/22/23 10:37 Home Medications Medication Instructions Recorded Confirmed Type meloxicam 15 mg tablet See Rx Instructions .Route 04/28/21 04/22/23 Rx .COMPLEX #90 tabs folic acid 1 mg tablet 1 mg PO DAILY #90 tabs 12/07/22 04/22/23 Rx methotrexate sodium 2.5 mg tablet 25 mg PO WEEKLY #128 tabs 12/14/22 04/22/23 Rx upadacitinib 15 mg tablet,extended 15 mg PO DAILY #30 tabs 02/09/23 04/22/23 Rx release 24 hr (Rinvoq) duloxetine 60 mg capsule,delayed 60 mg PO DAILY 04/12/23 04/22/23 History release hydrocodone 5 mg-acetaminophen 325 1 tablet PO DAILY PRN Pain 04/12/23 04/22/23 History mg tablet hydroxychloroquine 200 mg tablet 400 mg PO DAILY 04/12/23 04/22/23 History (Plaquenil) Patient hx anesthesia problems: none Family hx anesthesia problems: none Results Review: All pre-operative results and documents have been reviewed as part of the pre-operative evaluation. [facility] Past Medical History Medical History Anxiety Arthritis GCA (giant cell arteritis) (~10/2018) Generalized osteoarthritis of multiple sites Migraines Other specified counseling Seronegative rheumatoid arthritis of both hands SOB (shortness of breath) Surgical History Surgical History History of knee replacement Hx of cholecystectomy Family History Family History Sibling Family history of obesity Depression Asthma Family history of diabetes mellitus in first degree relative Patient's sister is Hypertension Father Hypertension Family history of pancreatic cancer Patient's father is Mother Family history of osteoarthritis Cerebrovascular accident Patient's mother is , Onset Age: 76 Family history of arthritis Family history of malignant neoplasm Family history of lung cancer Other Diabetes mellitus Family history of Parkinson's disease Family history of malignant neoplasm of breast Family history of malignant neoplasm of breast in first degree relative Family history of migraine headaches Family history of osteoporosis Family history of rheumatoid arthritis Social History Social History Smoking packs per day: 0.5 Smoking cigarettes per day: 10.0 Years smoked: 20 Smoking pack-years: 10.00 Smoking status: Former smoker Tobacco type: cigarettes Smoking end date: 10/31/13 Alcohol intake: never Substance use type: does not use Living arrangements: with family Spiritual care concerns: No Anes - Eval Final PreProcedure Day of Procedure 04/21/23 12:40 Patient weight: morbidly obese Heart: regular rate and rhythm Lungs: clear to auscultation Airway: Mallampati scale class II Neurological: alert and oriented Last oral intake: >/= 8 hours ASA classification: III Emergent: no Anesthetic plan: proceed Anesthesia type and monitoring: general GIVS and standard monitoring Results Review: All pre-operative results and documents have been reviewed as part of the pre-operative evaluation. Informed Consent: The patient's anesthetic plan and its attendant risks and benefits were discussed with the patient/family/POA. Questions were solicited and answers provided to the satisfaction of the patient/family/POA.
[2023-04-22 10:38] VITALS: BP 158/84; PULSE 87; RESP 18; TEMP 35.9; O2SAT 100
[2023-04-22] MEDS: LACTATED RINGERS 1,000 ML 150 ML IV CONT (10:41)
--- NOTE | 2023-04-22 11:20 | PM.HPGS ---
History of Present Illness History of Present Illness Consent: Risks, benefits, and alternatives have been discussed and questions answered. Patient agrees to proceed with procedure. Chief complaint: GERD Narrative: Ciarra Rainey is a 67 year old female Presents for EGD. Patient reports substernal burning pain has been present for many years. Over the last 6 months she states symptoms have is worsen. She notices discomfort not only when drinking spicy foods but sometimes with non spicy intake. Over the last 6 months start ytfk-esk-rivkyti omeprazole 20mg p.o. daily. She reports that this helps to a great degree but sometimes will have difficulties comfort later in the day as well. Patient denies any bleeding or weight loss. Patient referred for EGD. Family history noncontributory. Patient is also treated for rheumatoid arthritis. Review of Systems Review of Systems: Review of systems noncontributory. [facility] Past Medical History Medical History Anxiety Arthritis GCA (giant cell arteritis) (~10/2018) Generalized osteoarthritis of multiple sites Migraines Other specified counseling Seronegative rheumatoid arthritis of both hands SOB (shortness of breath) Surgical History Surgical History History of knee replacement Hx of cholecystectomy Family History Family History Sibling Family history of obesity Depression Asthma Family history of diabetes mellitus in first degree relative Patient's sister is Hypertension Father Hypertension Family history of pancreatic cancer Patient's father is Mother Family history of osteoarthritis Cerebrovascular accident Patient's mother is , Onset Age: 76 Family history of arthritis Family history of malignant neoplasm Family history of lung cancer Other Diabetes mellitus Family history of Parkinson's disease Family history of malignant neoplasm of breast Family history of malignant neoplasm of breast in first degree relative Family history of migraine headaches Family history of osteoporosis Family history of rheumatoid arthritis Social History Social History Smoking packs per day: 0.5 Smoking cigarettes per day: 10.0 Years smoked: 20 Smoking pack-years: 10.00 Smoking status: Former smoker Tobacco type: cigarettes Smoking end date: 10/31/13 Alcohol intake: never Substance use type: does not use Living arrangements: with family Spiritual care concerns: No Meds Home Medications and Allergies Home Medications Medication Instructions Recorded Confirmed Type meloxicam 15 mg tablet See Rx Instructions .Route 04/28/21 04/22/23 Rx .COMPLEX #90 tabs folic acid 1 mg tablet 1 mg PO DAILY #90 tabs 12/07/22 04/22/23 Rx methotrexate sodium 2.5 mg tablet 25 mg PO WEEKLY #128 tabs 12/14/22 04/22/23 Rx upadacitinib 15 mg tablet,extended 15 mg PO DAILY #30 tabs 02/09/23 04/22/23 Rx release 24 hr (Rinvoq) duloxetine 60 mg capsule,delayed 60 mg PO DAILY 04/12/23 04/22/23 History release hydrocodone 5 mg-acetaminophen 325 1 tablet PO DAILY PRN Pain 04/12/23 04/22/23 History mg tablet hydroxychloroquine 200 mg tablet 400 mg PO DAILY 04/12/23 04/22/23 History (Plaquenil) Allergies Allergy/AdvReac Type Severity Reaction Status Date / Time No Known Allergies Allergy Verified 04/22/23 10:37 Vital Signs Vital Signs - 24 hr 04/22/23 10:38 Temperature 96.7 F L Pulse Rate 87 Respiratory Rate 18 Blood Pressure 158/84 H Pulse Oximetry 100 Oxygen Delivery Room Air Exam Narrative: Physical exam reveals patient to be alert. Vital signs stable. HEENT exam is unremarkable. Patient is anicteric. Lungs are clear to auscultation and percussion. Heart is without murmur
[2023-04-22 11:38] VITALS: BP 126/71; PULSE 76; RESP 19; O2SAT 100
[2023-04-22 11:48] VITALS: BP 125/67; PULSE 81; RESP 20; O2SAT 100
[2023-04-22 11:58] VITALS: BP 130/73; PULSE 73; RESP 32; O2SAT 100
== END 2023-04-22 12:07 | disposition home or self-care (01) ==
PROVIDERS: PCP Physician Assistant; Visit Provider Internal Medicine Gastroenterology
PROC: 0DJ08ZZ Inspection of Upper Intestinal Tract, Via Natural or Artificial Opening Endoscopic (ICD-10-PCS; CPT 43235; principal; 2023-04-22 11:00)
DX: K21.00 Gastro-esophageal reflux disease with esophagitis, without bleeding (principal); M06.042 Rheumatoid arthritis without rheumatoid factor, left hand; M06.041 Rheumatoid arthritis without rheumatoid factor, right hand; F41.9 Anxiety disorder, unspecified; Z87.891 Personal history of nicotine dependence; E66.01 Morbid (severe) obesity due to excess calories; Z68.41 Body mass index [BMI] 40.0-44.9, adult
CPT/HCPCS: 43239; 87081; J2704; J7120

== ENCOUNTER 2023-06-07 06:49 | Outpatient (CLI) | payer OTHER, SELFPAY ==
[2023-06-07 07:05] LABS: Basophils Percent Auto 0.3 % (0.2-1.2); Eosinophils Absolute Auto 0.2 K/mm3 (0-0.3); Eosinophils Percent Auto 2.5 % (0-4.4); Hematocrit 35.7 % (37.0-47.0); Hemoglobin 12.6 g/dL (12.0-15.0); Immature Granulocyte Absolute 0.03 K/mm3 (0.00-0.031); Immature Granulocyte Percent A 0.3 % (0-0.5); Lymphocytes Absolute Auto 1.17 K/mm3 (0.9-3.2); Lymphocytes Percent Auto 12.5 % (18.3-44.2); Mean Corpuscular HGB Conc 35.3 g/dl (32-36); Monocytes Absolute Auto 0.9 K/mm3 (0.1-0.6); Monocytes Percent Auto 9.6 % (2.6-8.5); Neutrophils Percent Auto 74.8 % (45.5-73.1); Platelet Count Result 359 k/mm3 (150-375); Red Cell Distribution Width 13.3 % (11.5-14.5); White Blood Count 9.3 K/mm3 (4.5-10.0)
== END 2023-06-07 06:50 | disposition home or self-care (01) ==
LOC: ANHLAB 06:51
PROVIDERS: PCP Physician Assistant; Visit Provider Physician Assistant
DX: D72.819 Decreased white blood cell count, unspecified (principal)
CPT/HCPCS: 36415; 85025

== ENCOUNTER 2023-08-10 09:44 | Outpatient (CLI) | payer OTHER, SELFPAY ==
--- NOTE | ~2023-08-10 | DEXA_ITS ---
Bone Density Report Name: VELMA BURGESS Age: 67 Sex: Female Ethnicity: White Date of : 1955 Indication: postmenopausal; screening for osteoporosis; height loss; rheumatoid arthritis; Referring Provider: KATHY, FLO Carcamo Study: Bone densitometry was performed. Exam Date: August 10, 2023 Accession number: [id number] Bone Density: Region BMD T-score Z-score Classification AP Spine(L1-L4) 0.947 -0.9 1.0 Normal Femoral Neck (Left) 0.693 -1.4 0.2 Osteopenia Total Hip (Left) 0.841 -0.8 0.5 Normal Femoral Neck (Right) 0.637 -1.9 -0.3 Osteopenia Total Hip (Right) 0.857 -0.7 0.6 Normal Total Hip Mean 0.849 -0.8 0.6 Normal World Health Organization criteria for BMD impression classify patients as: Normal (T-score at or above -1.0), Osteopenia (T-score between -1.0 and -2.5), or Osteoporosis (T-score at or below -2.5). 10-year Fracture Risk(1): Major Osteoporotic Fracture 12% Hip Fracture 1.7% Reported Risk Factors: [place] (), Neck BMD=0.637, BMI=39.5, rheumatoid arthritis (1) FRAX(R) Version 3.08. Fracture probability calculated for an untreated patient. Fracture probability may be lower if the patient has received treatment. Clinical Information Provided by Patient: Has rheumatoid arthritis Patient maximum height was 65 Menopause Age: 51 No regular weight bearing exercise Drinks caffeinated beverages Onset of menses at age 13 Number of children 1 Impression: The patient has low bone mass, based on the Right Femoral Neck T-score. The patient has an estimated ten-year risk of hip fracture of 1.7% and an estimated ten-year risk of major fracture of 12%, based on the WHO FRAX algorithm. Discussion: BONE DENSITY IS LOW AT ONE OR MORE SKELETAL SITES. This patient's lowest T-score is low at one or more skeletal sites. It meets the World Health Organization's (WHO) criteria for ?low bone mass? (T-score between -1.0 and -2.5). The patient's 10-year risk of fracture as calculated by FRAX is less than the threshold where pharmacological therapy is recommended by the National Osteoporosis Foundation (NOF). However, all treatment decisions require clinical judgment and consideration of individual patient factors, including patient preferences, comorbidities, previous drug use, risk factors not captured in the FRAX model (e.g., frailty, falls, vitamin D deficiency, increased bone turnover, interval significant decline in bone density) and possible under or overestimation of fracture risk by FRAX. The patient should follow a healthful lifestyle (good nutrition with adequate calcium and vitamin D, and appropriate weight-bearing exercise). Follow-Up: Consider repeating this study in 2 to 3 years to reassess this patient's status, or sooner if there is some new clinical indication.
== END 2023-08-10 09:45 | disposition home or self-care (01) ==
LOC: ANHIMG 09:48
PROVIDERS: PCP Physician Assistant; Visit Provider Physician Assistant
DX: Z78.0 Asymptomatic menopausal state (principal); M85.852 Other specified disorders of bone density and structure, left thigh; M85.851 Other specified disorders of bone density and structure, right thigh
CPT/HCPCS: 77080

== ENCOUNTER 2023-09-13 07:01 | Outpatient (CLI) | payer OTHER, SELFPAY ==
--- NOTE | ~2023-09-13 | XR_ITS ---
Left Humerus Technique: AP and lateral views were obtained. Clinical History: Pain Findings: No fracture or dislocation is seen. Osseous alignment is anatomic. Visualized joint spaces are grossly preserved. Soft tissues are unremarkable. Impression: Unremarkable examination. No fracture or dislocation. Reviewed, dictated and finalized at location . ING AGENCY MANAGER Impression: Unremarkable examination. No fracture or dislocation.
[2023-09-13 10:59] LABS: Appearance Urine Clear (Clear); Bacteria Urine None Seen /hpf; Bilirubin Urine Negative (Negative); Blood Urine Negative (Negative); Color Urine Yellow (Yellow); Glucose Urine UA Negative (Negative); Ketones Urine Negative (Negative); Leukocyte Esterase Ur Trace LEU/UL (Negative); Nitrate Urine Negative (Negative); Non Pathogenic Casts 0-2; Protein Urine Negative (Negative); RBC Urine 0-2 /hpf (0-2); Specific Grav Ur 1.005 (1.001-1.035); Squamous Epithelial Cell Urine None seen /hpf (Few); Urobilinogen Urine 0.2 mg/dL (<2.0); WBC Urine 0-5 /hpf
[2023-09-13 11:11] LABS: Add Urine Microscopic? YES
[2023-09-13 11:35] LABS: Basophils Percent Auto 0.4 % (0.2-1.2); Eosinophils Percent Auto 0.6 % (0-4.4); Hematocrit 41.9 % (37.0-47.0); Hemoglobin 13.9 g/dL (12.0-15.0); Immature Granulocyte Absolute 0.01 K/mm3 (0.00-0.031); Immature Granulocyte Percent A 0.2 % (0-0.5); Lymphocytes Absolute Auto 1.86 K/mm3 (0.9-3.2); Lymphocytes Percent Auto 39.1 % (18.3-44.2); Mean Corpuscular HGB Conc 33.2 g/dl (32-36); Mean Corpuscular Hemoglobin 34.1 pg (26-34); Mean Corpuscular Volume 102.7 fl (80-100); Monocytes Absolute Auto 0.3 K/mm3 (0.1-0.6); Monocytes Percent Auto 5.9 % (2.6-8.5); Neutrophils Absolute Auto 2.6 K/mm3 (1.3-6.7); Neutrophils Percent Auto 53.8 % (45.5-73.1); Platelet Count Result 344 k/mm3 (150-375); Red Blood Count 4.08 M/mm3 (4.2-5.4); Red Cell Distribution Width 13.3 % (11.5-14.5); White Blood Count 4.8 K/mm3 (4.5-10.0)
[2023-09-13 11:46] LABS: Alanine Aminotransferase 25 U/L (6-35); Albumin Level 4.8 g/dL (3.5-5.1); Alkaline Phosphatase 47 U/L (38-126); Anion Gap 11 mmol/L (8-16); Aspartate Amino Transferase 31 U/L (14-36); Bilirubin,Total 0.8 mg/dL (0.2-1.3); Blood Urea Nitrogen 14 mg/dL (7-17); Calcium 9.5 mg/dL (8.4-10.2); Carbon Dioxide 26 mmol/L (22-30); Chloride 101 mmol/L (98-107); Estimated Glomerular Filt Rate > 60; Glucose 71 mg/dL (65-110); Sodium 138 mmol/L (137-145)
== END 2023-09-13 07:02 | disposition home or self-care (01) ==
PROVIDERS: PCP Physician Assistant; Visit Provider Physician Assistant
DX: M79.602 Pain in left arm (principal); R10.30 Lower abdominal pain, unspecified
CPT/HCPCS: 36415; 73060; 80053; 81001; 85025

== ENCOUNTER 2023-09-15 07:45 | Outpatient (CLI) | payer OTHER, SELFPAY ==
--- NOTE | ~2023-09-15 | CT_ITS ---
CT of the Abdomen and Pelvis: Indication: Abdominal pain Technique: 2.5 mm axial scans were obtained through the abdomen and pelvis following intravenous adm inistration of 100 cc of Omnipaque 350. Dose reduction technique was used on this scan by utilizing a utomated exposure control and iterative reconstruction technique. The dose-length product (DLP) was 1 301.79 mGy-cm. Findings: Scans through the lung bases are unremarkable. The liver, spleen, pancreas, adrenals and kidneys are within normal limits.. Dilated common bile duct is probably related to prior cholecystectomy. No evidence of aortic aneurysm. No lymphadenopathy. No bowel obstruction or bowel wall thickening. There is no evidence to suggest acute appendicitis. Images through the pelvis were performed. Urinary bladder unremarkable. No pelvic mass seen. No ascit es. Impression: Dilated common bile duct is most likely related to prior cholecystectomy. No other significant findings. Reviewed, dictated and finalized at [facility]. ER EXPERT Impression: Dilated common bile duct is most likely related to prior cholecystectomy. No other significant findings.
== END 2023-09-15 07:46 | disposition home or self-care (01) ==
LOC: ANHIMG 07:47
PROVIDERS: PCP Physician Assistant; Visit Provider Physician Assistant
DX: R10.30 Lower abdominal pain, unspecified (principal)
CPT/HCPCS: 74177; Q9967

== ENCOUNTER 2024-02-14 06:56 | Outpatient (CLI) | payer OTHER, SELFPAY ==
[2024-02-14 07:38] LABS: Hematocrit 37.3 % (37.0-47.0); Hemoglobin 12.4 g/dL (12.0-15.0); Mean Corpuscular HGB Conc 33.2 g/dl (32-36); Mean Corpuscular Hemoglobin 35.1 pg (26-34); Mean Corpuscular Volume 105.7 fl (80-100); Mean Platelet Volume 10.6 fl (7.4-10.4); Platelet Count Result 335 k/mm3 (150-375); Red Blood Count 3.53 M/mm3 (4.2-5.4); Red Cell Distribution Width 13.1 % (11.5-14.5)
[2024-02-14 08:14] LABS: Alanine Aminotransferase 23 U/L (6-35); Albumin Level 4.3 g/dL (3.5-5.1); Alkaline Phosphatase 44 U/L (38-126); Anion Gap 5 mmol/L (4-12); Aspartate Amino Transferase 38 U/L (14-36); Bilirubin,Total 0.9 mg/dL (0.2-1.3); Blood Urea Nitrogen 14 mg/dL (7-17); CRP < 0.5 mg/dL (<1.0); Calcium 9.1 mg/dL (8.4-10.2); Carbon Dioxide 26 mmol/L (22-30); Chloride 104 mmol/L (98-107); Estimated Glomerular Filt Rate > 60; Glucose 91 mg/dL (65-110); Potassium 4.6 mmol/L (3.4-5.0); Sodium 135 mmol/L (137-145)
[2024-02-14 08:24] LABS: Erythrocyte Sedimentation Rate 24 mm/hr (0-20)
[2024-02-14 12:20] LABS: Appearance Urine Clear (Clear); Bacteria Urine None Seen /hpf; Bilirubin Urine Negative (Negative); Blood Urine Negative (Negative); Color Urine Yellow (Yellow); Glucose Urine UA Negative (Negative); Ketones Urine Negative (Negative); Leukocyte Esterase Ur 1+ LEU/UL (Negative); Need Manual Microscopic Reviewed; Nitrate Urine Negative (Negative); Non Pathogenic Casts 0-2; Protein Urine Negative (Negative); RBC Urine 0-2 /hpf (0-2); Specific Grav Ur 1.005 (1.001-1.035); Squamous Epithelial Cell Urine None Seen /hpf (Few); Urobilinogen Urine 0.2 mg/dL (<2.0); WBC Urine 0-5 /hpf (0-3); pH Urine 7.5 (5.0-9.0)
[2024-02-14 12:23] LABS: Add Urine Microscopic? YES
== END 2024-02-14 06:57 | disposition home or self-care (01) ==
LOC: ANHLAB 06:58
PROVIDERS: PCP Physician Assistant; Visit Provider Internal Medicine
DX: M06.041 Rheumatoid arthritis without rheumatoid factor, right hand (principal); M06.042 Rheumatoid arthritis without rheumatoid factor, left hand; M19.90 Unspecified osteoarthritis, unspecified site
CPT/HCPCS: 36415; 80053; 81001; 85027; 85652; 86140

== ENCOUNTER 2024-03-14 10:10 | Outpatient (CLI) | payer OTHER, SELFPAY ==
[2024-03-14 12:52] LABS: Magnesium 2.1 mg/dL (1.6-2.3)
[2024-03-14 13:22] LABS: Thyroid Stimulating Hormone 0.399 uIU/mL (0.465-4.680)
[2024-03-14 13:52] LABS: Vitamin D 25 Hydroxy 45.4 ng/mL
== END 2024-03-14 10:11 | disposition home or self-care (01) ==
LOC: ANHWCLAB 10:13
PROVIDERS: PCP Physician Assistant; Visit Provider Physician Assistant
DX: M79.10 Myalgia, unspecified site (principal)
CPT/HCPCS: 36415; 82306; 82728; 83735; 84443

== ENCOUNTER 2024-04-13 06:48 | Outpatient (CLI) | payer OTHER, SELFPAY ==
[2024-04-13 08:11] LABS: Thyroid Stimulating Hormone 0.703 uIU/mL (0.465-4.680)
[2024-04-13 08:14] LABS: Free T4 Free Thyroxine 0.97 ng/mL (0.78-2.19)
[2024-04-15 06:34] LABS: Triiodothyronine T3 Free 3.4 pg/mL (2.3-4.2)
== END 2024-04-13 06:49 | disposition home or self-care (01) ==
PROVIDERS: PCP Physician Assistant; Visit Provider Physician Assistant
DX: R79.89 Other specified abnormal findings of blood chemistry (principal); E05.90 Thyrotoxicosis, unspecified without thyrotoxic crisis or storm
CPT/HCPCS: 36415; 84439; 84443; 84481

== ENCOUNTER 2024-05-08 09:04 | Outpatient (CLI) | payer OTHER, MEDICARE, SELFPAY ==
--- NOTE | ~2024-05-08 | US_ITS ---
ULTRASOUND ANKLE BRACHIAL INDEX Ordering provider: Tina Gallagher, PA History: . INTERMITTENT CLAUDICATION . Comparison: None. FINDINGS: Right brachial systolic blood pressure: 127 mmHg Left brachial systolic blood pressure: 121 mmHg Right ankle systolic blood pressure: 143 mmHg Left ankle systolic blood pressure: 142 mmHg Right ankle/arm index (IVETTE): 1.13 Left ankle/arm index (IVETTE): 1.12 A right TBI: 0.41 Note regarding IVETTE: --Normal= 1.0 or slightly greater. --Claudication (moderate stenosis or occlusive state)= 0.6 to 0.9. --Rest pain (severe occlusive states)= 0.5 or less. IMPRESSION: Normal IVETTE. Reviewed, dictated and finalized at location A. IMPRESSION: Normal IVETTE.
== END 2024-05-08 09:05 | disposition home or self-care (01) ==
PROVIDERS: PCP Physician Assistant; Visit Provider Physician Assistant
DX: I73.9 Peripheral vascular disease, unspecified (principal)
CPT/HCPCS: 93922

== ENCOUNTER 2024-05-23 09:47 | Outpatient (CLI) | payer OTHER, MEDICARE, SELFPAY ==
--- NOTE | 2024-05-23 09:53 | ECHO_ITS ---
Patient Info Name: Ciarra Rainey Age: 68 years : 1955 Gender: Female Ht: 64 in Wt: 210 lbs BSA: 2.12 m2 HR: 76 bpm BP: 131 / 78 mmHg Heart Rhythm: Sinus Rhythm Technical Quality: Good Exam Date: 05/23/2024 10:13 AM Exam Location: Echo Lab Patient Status: Outpatient Admit Date: 05/23/2024 Staff Ordering Physician: Mikey Sotelo DO Teacher Aide Clerical: Jonah Caballero RDCS Attending Provider: Mikey Sotelo DO Referring Physician: Deepak TABARES; Exam Type: CA echo doppler color flow Study Info Indications - other forms of dyspnea Complete two-dimensional, color flow and Doppler transthoracic echocardiogram is performed. Summary 1. Complete two-dimensional, color flow and Doppler transthoracic echocardiogram is performed. 2. Left ventricular chamber dimension is normal. 3. Left ventricular systolic function is normal, estimated at 65-70%. 4. The left ventricular diastolic function is grade I diastolic dysfunction. 5. E/e' 10 is mildly elevated. 6. There is trace tricuspid valve regurgitation. 7. No pulmonary hypertension, estimated pulmonary arterial systolic pressure is 24 mmHg. Left Ventricle E/e' 10 is mildly elevated. Left ventricular chamber dimension is normal. Left ventricular systolic function is normal, estimated at 65-70%. The left ventricular diastolic function is grade I diastolic dysfunction. Right Ventricle Right ventricular systolic function is normal and with normal TAPSE 2.7 cm. Right ventricular chamber dimension is normal. Left Atria Left atrial chamber dimension is normal. Right Atria Right atrial chamber dimension is normal. Aortic Valve The aortic valve is trileaflet. There is no aortic valve stenosis. There is no aortic valve regurgitation. Pulmonic Valve There is no pulmonic regurgitation. Mitral Valve There is no mitral valve stenosis. There is no mitral valve regurgitation. Tricuspid Valve There is trace tricuspid valve regurgitation. No pulmonary hypertension, estimated pulmonary arterial systolic pressure is 24 mmHg. Pericardium/Pleural There is no pericardial effusion. Inferior Vena Cava Normal inferior vena cava with >50% collapse upon inspiration consistent with normal right atrial pressure, 5 mmHg. Aorta The aortic root size at the sinus of Valsalva is normal. Left Ventricular Outflow Tract Name Value Normal LVOT 2D LVOT Diameter 2.0 cm LVOT Doppler LVOT Peak Gradient 3 mmHg LVOT Mean Gradient 2 mmHg LVOT VTI 24 cm LVOT VTI/AV VTI Ratio 0.9 LVOT Stroke Volume 78 ml LVOT CO 5.3 l/min LVOT CI 2.5 l/min/m2 Mitral Valve Name Value Normal MV Doppler MV Decel [place] 331 cm/s2 MV PHT 56 ms MV Area (PHT)
== END 2024-05-23 09:48 | disposition home or self-care (01) ==
LOC: ANHCARD 09:49
PROVIDERS: PCP Physician Assistant; Visit Provider Internal Medicine Cardiovascular Disease
DX: R06.09 Other forms of dyspnea (principal)
CPT/HCPCS: 93306

== ENCOUNTER 2024-05-28 08:36 | Outpatient (CLI) | payer OTHER, MEDICARE, SELFPAY ==
--- NOTE | ~2024-05-28 | MM_ITS ---
EXAMINATION: MM screening ceasar BI w jack HISTORY: Screening TECHNIQUE: Craniocaudal and mediolateral oblique 3-D tomosynthesis images were obtained and synthetic 2-D images were generated. CAD analysis was submitted and interpreted. COMPARISON: Comparison to multiple prior studies sequentially, with oldest reviewed study dated 11/19. BREAST PARENCHYMAL COMPOSITION: Not Dense. The breasts are almost entirely fatty. FINDINGS: There is no evidence of suspicious mass, calcification, or architectural distortion to sugg est malignancy in either breast. There has been no suspicious interval change. IMPRESSION: 1. No mammographic evidence of malignancy. 2. Recommend routine screening mammography in one year. BI-RADS Category 1: Negative Reviewed, dictated and finalized at location B.
== END 2024-05-28 08:37 | disposition home or self-care (01) ==
LOC: ANHIMG 08:43
PROVIDERS: PCP Physician Assistant; Visit Provider Physician Assistant
DX: Z12.31 Encounter for screening mammogram for malignant neoplasm of breast (principal)
CPT/HCPCS: 77063; 77067

== ENCOUNTER 2024-07-10 06:36 | Outpatient (CLI) | payer OTHER, MEDICARE, SELFPAY ==
[2024-07-10 08:13] LABS: Alanine Aminotransferase 22 U/L (6-35); Albumin Level 4.5 g/dL (3.5-5.1); Alkaline Phosphatase 50 U/L (38-126); Anion Gap 8 mmol/L (4-12); Aspartate Amino Transferase 35 U/L (14-36); Bilirubin,Total 0.7 mg/dL (0.2-1.3); Blood Urea Nitrogen 14 mg/dL (7-17); CRP < 0.5 mg/dL (<1.0); Calcium 9.6 mg/dL (8.4-10.2); Carbon Dioxide 30 mmol/L (22-30); Chloride 99 mmol/L (98-107); Estimated Glomerular Filt Rate > 60; Glucose 83 mg/dL (65-110); Magnesium 2.1 mg/dL (1.6-2.3); Potassium 4.5 mmol/L (3.4-5.0); Sodium 137 mmol/L (137-145)
[2024-07-10 08:19] LABS: Basophils Percent Auto 0.5 % (0.2-1.2); Eosinophils Percent Auto 0.5 % (0-4.4); Hematocrit 39.8 % (37.0-47.0); Hemoglobin 13.4 g/dL (12.0-15.0); Immature Granulocyte Absolute 0.03 K/mm3 (0.00-0.031); Immature Granulocyte Percent A 0.5 % (0-0.5); Lymphocytes Absolute Auto 1.12 K/mm3 (0.9-3.2); Lymphocytes Percent Auto 19.5 % (18.3-44.2); Mean Corpuscular HGB Conc 33.7 g/dl (32-36); Mean Corpuscular Hemoglobin 35.2 pg (26-34); Mean Corpuscular Volume 104.5 fl (80-100); Mean Platelet Volume 10.6 fl (7.4-10.4); Monocytes Absolute Auto 0.5 K/mm3 (0.1-0.6); Monocytes Percent Auto 9.2 % (2.6-8.5); Neutrophils Percent Auto 69.8 % (45.5-73.1); Platelet Count Result 349 k/mm3 (150-375); Red Blood Count 3.81 M/mm3 (4.2-5.4); Red Cell Distribution Width 12.8 % (11.5-14.5); White Blood Count 5.8 K/mm3 (4.5-10.0)
[2024-07-10 09:13] LABS: Folic Acid > 20.0 ng/mL (2.76->20)
[2024-07-10 09:14] LABS: Erythrocyte Sedimentation Rate 15 mm/hr (0-20)
== END 2024-07-10 06:37 | disposition home or self-care (01) ==
PROVIDERS: PCP Physician Assistant; Visit Provider Physician Assistant
DX: R42 Dizziness and giddiness (principal); R20.2 Paresthesia of skin
CPT/HCPCS: 36415; 80053; 82607; 82746; 83735; 85025; 85652; 86140

== ENCOUNTER 2024-07-13 06:35 | Outpatient (CLI) | payer OTHER, MEDICARE, SELFPAY ==
--- NOTE | ~2024-07-13 | MR_ITS ---
MRI of the brain Clinical History: Headache Technique: Axial and sagittal T1-weighted images were acquired. These were followed by axial T2-weigh richard, diffusion weighted, gradient, and FLAIR images. Following intravenous administration of 19 cc Mu ltiHance gadolinium, T1-weighted fat-sat imaging was performed in the axial and coronal planes. Findings: There is no acute infarct, intracranial hemorrhage, mass lesion. There are moderate chronic white matter changes in the periventricular white matter, most compatible with chronic microvascular ischemic change. Ventricles and subarachnoid spaces are unremarkable. Orbits are unremarkable. Paranasal sinuses and m astoid air cells are clear. Major intracranial flow voids appear intact. Sagittal midline structures are intact. No abnormal postcontrast enhancement identified. IMPRESSION: Moderate chronic microvascular ischemic change in the periventricular white matter, otherwise unremar kable exam. Reviewed, dictated and finalized at location M. IMPRESSION: Moderate chronic microvascular ischemic change in the periventricular white mat ter, otherwise unremarkable exam.
== END 2024-07-13 06:36 | disposition home or self-care (01) ==
PROVIDERS: PCP Physician Assistant; Visit Provider Physician Assistant
DX: R51.9 Headache, unspecified (principal); R42 Dizziness and giddiness
CPT/HCPCS: 70553; A9577

== ENCOUNTER 2024-08-29 08:38 | Outpatient (CLI) | payer OTHER, MEDICARE, SELFPAY ==
--- NOTE | 2024-08-29 11:00 | NEURO_ITS ---
Impression: # Known to have rheumatoid arthritis. Complains of pain and numbness of hands. # Normal Nerve Conduction Study. # No Carpal Tunnel Syndrome or ulnar neuropathy. # Normal needle/EMG exam. Nerve Conduction Studies Anti Sensory Summary Table Stim Site NR Peak (ms) P-T Amp (?V) Site1 Site2 Delta-P (ms) Dist (cm) Dileep (m/s) Left Median Anti Sensory (2-3nd Digit) Wrist 2.8 71.2 Wrist 2-3nd Digit 2.8 14.0 50 Wrist 2.8 52.6 Wrist 2-3nd Digit 2.8 14.0 50 Right Median Anti Sensory (2-3nd Digit) Wrist 2.7 71.4 Wrist 2-3nd Digit 2.7 14.0 52 Wrist 2.8 39.5 Wrist 2-3nd Digit 2.7 14.0 52 Left Radial Anti Sensory (Base 1st Digit) Wrist 1.8 40.5 Wrist Base 1st Digit 1.8 0.0 Right Radial Anti Sensory (Base 1st Digit) Wrist 2.4 18.7 Wrist Base 1st Digit 2.4 0.0 Left Ulnar Anti Sensory (5th Digit) Wrist 2.1 52.6 Wrist 5th Digit 2.1 14.0 67 Right Ulnar Anti Sensory (5th Digit) Wrist 2.2 34.9 Wrist 5th Digit 2.2 14.0 64 Motor Summary Table Stim Site NR Onset (ms) O-P Amp (mV) Site1 Site2 Delta-0 (ms) Dist (cm) Dileep (m/s) Left Median Motor (Abd Poll Brev) Wrist 3.4 1.5 Elbow Wrist 4.7 26.0 55 Elbow 8.1 1.1 Right Median Motor (Abd Poll Brev) Wrist 2.9 4.0 Elbow Wrist 5.5 28.0 51 Elbow 8.4 1.6 Left Ulnar Motor (Abd Dig Minimi) Wrist 2.3 5.9 A Elbow Wrist 5.0 28.0 56 A Elbow 7.3 4.8 Right Ulnar Motor (Abd Dig Minimi) Wrist 2.2 5.5 A Elbow Wrist 5.0 28.0 56 A Elbow 7.2 4.1 F Wave Studies NR F-Lat (ms) L-R F-Lat (ms) Left Median (Mrkrs) (Abd Poll Brev) 27.86 0.96 Right Median (Mrkrs) (Abd Poll Brev) 28.82 0.96 Left Ulnar (Mrkrs) (Abd Dig Min) 28.65 0.83 Right Ulnar (Mrkrs) (Abd Dig Min) 27.82 0.83 EMG Side Muscle Nerve Root Ins Act Fibs Amp Dur Recrt Comment Right 1stDorInt Ulnar C8-T1 Nml Nml Nml Nml Nml Right Ext Indicis Radial (Post Int) C7-8 Nml Nml Nml Nml Nml Right Ext Digitorum Radial (Post Int) C7-8 Nml Nml Nml Nml Nml Right BrachioRad Radial C5-6 Nml Nml Nml Nml Nml Right PronatorTeres Median C6-7 Nml Nml Nml Nml Nml Right Abd Poll Brev Median C8-T1 Nml Nml Nml Nml Nml Right ABD Dig Min Ulnar C8-T1 Nml Nml Nml Nml Nml Left 1stDorInt Ulnar C8-T1 Nml Nml Nml Nml Nml Left Ext Indicis Radial (Post Int) C7-8 Nml Nml Nml Nml Nml Left Ext Digitorum Radial (Post Int) C7-8 Nml Nml Nml Nml Nml Left BrachioRad Radial C5-6 Nml Nml Nml Nml Nml Left PronatorTeres Median C6-7 Nml Nml Nml Nml Nml Left Abd Poll Brev Median C8-T1 Nml Nml Nml Nml Nml Left ABD Dig Min Ulnar C8-T1 Nml Nml Nml Nml Nml MTDD
== END 2024-08-29 08:39 | disposition home or self-care (01) ==
LOC: ANHNEURO 08:39
PROVIDERS: PCP Physician Assistant; Visit Provider Physician Assistant
DX: R20.2 Paresthesia of skin (principal)
CPT/HCPCS: 95886; 95911

== ENCOUNTER 2025-02-04 06:45 | Outpatient (CLI) | payer OTHER, SELFPAY ==
--- OUTSIDE RECORDS SUMMARY | 2025-02-04 06:51 | XMS_ITS | Encounter Summary ---
Author Organization [facility] Address [address] [place] [address] Phone Care Team Providers Care Snow Technician Name Role Phone Shanell Diana APRN, CHAR BELT OPERATOR Unavailable [phone] Tina Gallagher Primary Care Provider + Rukhsana Guzman MD Unavailable [phone] Reason for Visit * Reason Comments Medication Refill Encounter Details Date Type Department Care Team (Late st Contact Info) Description 04/14/2023 Refill [facility] [address] [place] [address] Tina Gallagher PAC [address] [place] [address] Medication Refill Social History Tobacco Use Types Packs/Day Years Used Date Smoking Tobacco: Former Cigarettes Q uit: 07/21/2014 Smokeless Tobacco: Never Alcohol Use Standard Drinks/Week Comments Yes 0 (1 standard drink = 0.6 oz pur e alcohol) RARELY PHQ-2 Answer Date Recorded Total Score - Questions 1-9 0 09/30 Education Answer Date Recorded What is the highest level of school you have completed or the highest degree you have received? Associate degree: occupational, technical, or vocational program 11/03/2021 Sexually Active Control Partners Comments Never Comments No Sex and Gender Information Value Date Recorded Sex Assigned at Not on file Legal Sex Female 10:57 PM CDT Gender Identity Not on file Sexual Orientation Not on file documented as of this encounter Miscellaneous Notes * Telephone Encounter - Hermila Mistry RN - 04/14/2023 2:56 PM CDT Medication failed the protocol, provider to review and approve the medication order if appropriate. Requested Prescriptions Pending Prescriptions Disp Refills DULoxetine (CYMBALTA) [address] Particles [Pharmacy Med Name: DULOXETINE DR 60MG CAPSULES] 90 Capsule 1 Sig: TAKE 1 CAPSULE BY MOUTH DAILY SNRI (6 Month Refill Only) Protocol Failed - 04/14/2023 2:37 PM Failed - Has an encounter in the past 6 months with a depression or anxiety visit diagnosis Failed - Patient has established therapy with Serotonin-Norepinephrine Reuptake Inhibitors for at least 6 months Passed - Visit with relevant provider in past 6 months or upcoming 90 days Recent Visits Date Type Provider Dept 02/18/23 Office Visit Tina Gallagher PAC [facility] 01/06/23 Office Visit Tina Gallagher PAC [facility] 10/14/22 Office Visit Tina Gallagher PAC [facility] Showing recent visits within past 182 days and meeting all other requirements Future Appointments Date Type Provider Dept 06/02/23 Appointment Tina Gallagher PAC [facility] Showing future appointments within next 90 days and meeting all other requirements documented in this encounter Plan of Treatment Upcoming Encounters Date Type Department Care Team (Late st Contact Info) Description 02/21/2025 2:00 PM CDT Office Visit [facility] - [place] [address] [place] [address] Tina Gallagher PAC [address] [place] [address] documented as of this encounter Visit Diagnoses Not on filedocumented in this encounter Additional Health Concerns Assessment Noted Time PHQ-9 Depression Total Score: 0 10/14/20 22 1:00 PM RECYCLING SPECIALIST documented as of this encounter Care Teams Snow Technician Relationship Specialty Start Date End Date Tina Gallagher PAC [address] [place] [address] PCP - General Physician Paste Up Worker 01/01/19 Shanell Diana, HISTOTECHNICIAN, CHAR BELT OPERATOR Certified Nurse Practitioner 09/06/16 Rukhsana Guzman MD [address] [place] [address] Obstetrics & Gynecology 01/11/19 documented as of this encounter
--- OUTSIDE RECORDS SUMMARY | 2025-02-04 06:51 | XMS_ITS | Encounter Summary ---
Author Organization [facility] Address [address] [place] [address] Phone Care Team Providers Care Insurance Legal Assistant Name Role Phone Shanell Diana APRN, ASSISTANT HOUSEKEEPING MANAGER Unavailable [phone] Tina Gallagher Primary Care Provider + Rukhsana Guzman MD Unavailable [phone] Reason for Visit * Reason Comments Medication Refill Encounter Details Date Type Department Care Team (Late st Contact Info) Description 09/30/2022 Refill [facility] [address] [place] [address] Tina Gallagher PAC [address] [place] [address] Medication Refill Social History Tobacco Use Types Packs/Day Years Used Date Smoking Tobacco: Former Cigarettes Q uit: 07/21/2014 Smokeless Tobacco: Never Alcohol Use Standard Drinks/Week Comments Yes 0 (1 standard drink = 0.6 oz pur e alcohol) RARELY PHQ-2 Answer Date Recorded Total Score - Questions 1-9 0 12/01 Education Answer Date Recorded What is the [...] Telephone Encounter - Hermila Mistry RN - 09/30/2022 2:12 PM CST Last Rx 01/19/21 for 60 tabs +1 #60 = 15 day supply MESSENGER documented in this encounter Plan of Treatment Upcoming Encounters Date Type Department Care Team (Late st Contact Info) Description 02/21/2025 2:00 PM CDT Office Visit [facility] - Family Medicine [facility] [address] [place] [address] Tina Gallagher PAC [address] [place] [address] documented as of this encounter Visit Diagnoses Not on filedocumented in this encounter Additional Health Concerns Assessment Noted Time PHQ-9 Depression Total Score: 0 05/07/20 21 8:00 AM CDT documented as of this encounter Care Teams Insurance Legal Assistant Relationship Specialty Start Date End Date Tina Gallagher PAC [address] [place] [address] PCP - General Physician Boom Master 01/01/19 Shanell Diana, REFRIGERATOR CRATER, ASSISTANT HOUSEKEEPING MANAGER Certified Nurse Practitioner 09/06/16 Rukhsana Guzman MD [address] [place] [address] Obstetrics & Gynecology 01/11/19 documented as of this encounter
--- OUTSIDE RECORDS SUMMARY | 2025-02-04 06:51 | XMS_ITS | Encounter Summary ---
Author Organization [facility] Address [address] [place] [address] Care Team Providers Care Facilities Maintenance Engineer Name Role Phone Unavailable Primary Care Provider Unavailabl e Encounter Details Date Type Department Care Team (Late st Contact Info) Description 12/10/2024 Abstract [facility] Operating Room [address] [address] [place] [place] [phone] Satya Shaikh MD [address] [place] [id number] Social History Tobacco Use Types Packs/Day Years Used Date Smoking Tobacco: Former Cigarettes Q uit: 2005 Alcohol Use Standard Drinks/Week Comments Not Currently 0 (1 standard drink = 0.6 oz pur e alcohol) Feeling Safe Answer Date Recorded Are you in a relationship wi th someone who hurts you emotionally and/or physically? No 12/10/2024 Food Insecurity Answer Date Recorded Social/Environmental Concerns No concerns Transportation Needs Answer Date Record ed Social/Environmental Concerns No concerns Housing Stability Answer Date Recorded Social/Environmental Concerns No concerns Utility Needs Answer Date Recorded Social/Environmental Concerns No concerns Comments No Sex and Gender Information Value Date Recorded Sex Assigned at Not on file Legal Sex Female 10:20 AM VACUUM SYSTEM TESTER Gender Identity Not on file Sexual Orientation Not on file documented as of this encounter Plan of Treatment Not on file documented as of this encounter Visit Diagnoses Not on filedocumented in this encounter
--- OUTSIDE RECORDS SUMMARY | 2025-02-04 06:51 | XMS_ITS | Clinical Summary ---
Author Organization [facility] Address [address] [facility] [address] [place] [place] [address] Phone Care Team Providers Care Entry Level Installation Technician Name Role Phone Unavailable Primary Care Provider Unavailabl e Allergies No known active allergies Medications buPROPion HCL (WELLBUTRIN XL) 150 mg Extended Release 24 hour tablet Take 150 mg by mouth daily in the morning. Active DULoxetine (CYMBALTA) 60 mg Capsule, Delayed Release(E.C.) Take 60 mg by mouth daily. Active famotidine (PEPCID) 40 mg tablet Take 40 mg by mouth daily. Active HYDROcodone-torie taminophen 2.5-108 mg/5 mL SolutionIndicat ions:Post-op pain Take 15 mL by mouth every 6 hours as needed for Pain, Severe. Max Daily Amount: 60 mL 300 mL 12/25/2024 3:48 PM PATTERN MARKER 12/24/2024 Active ondansetron (ZOFRAN ODT) 4 mg Tablet, Rapid Dissolve Take 1 Tablet (4 mg) by mouth every 6 hours as needed for Nausea. Dissolve tablet on top of tongue, then swallow with saliva. 28 Tablet 12/25/2024 Active ondansetron (ZOFRAN ODT) 4 mg Tablet, Rapid Dissolve Take 1 Tablet (4 mg) by mouth every 6 hours as needed for Nausea. Dissolve tablet on top of tongue, then swallow with saliva. 28 Tablet 12/25/2024 Active Active Problems Problem Noted Date Diagnosed Date Postoperative urinary retention 12/25/2024 Gastroesophageal reflux disease without esophagi tis 12/24/2024 CORAZON (generalized anxiety disorder) 12/24/2024 Rheumatoid arthritis 12/24/2024 ALEXANDRA (obstructive sleep apnea) 12/24/2024 Encounters Date Type Department Care Team Description 01/29/2025 External Device Data [facility] ABSTRACTION Provider, Abstract 01/29/2025 External Device Data [facility] ABSTRACTION Provider, Abstract 01/29/2025 External Device Data [facility] ABSTRACTION Provider, Abstract 12/25/2024 External Device Data [facility] ABSTRACTION Provider, Abstract 12/25/2024 External Device Data [facility] ABSTRACTION Provider, Abstract 12/25/2024 External Device Data [facility] ABSTRACTION Provider, Abstract 12/24/2024 1:21 PM PATTERN MARKER Anesthesia Event [facility] Operating Room [address] [address] [place] [address] Simone Donald MD Shaffer, Jason P, PILLOWCASE FOLDER 12/24/2024 11:30 AM PATTERN MARKER - 12/24/2024 12:30 PM PATTERN MARKER Surgery [facility] Operating Room [address] [facility] [address] [place] [phone] Satya Shaikh MD GASTRECTOMY LONGITUDINAL LAPAROSCOPIC WITH ON Q PAIN PUMP 12/24/2024 9:52 AM PATTERN MARKER - 12/25/2024 4:10 PM PATTERN MARKER Hospital Encounter [facility] Surgical [address] [address] [place] [address] Satya Shaikh MD Gastroesophageal reflux disease without esophagitis Discharge Disposition: Home or Self Care 12/24/2024 Travel 12/10/2024 Travel 12/10/2024 Abstract [facility] Operating Room [address] [address] [place] [address] Satya Shaikh MD from Last 3 Months Social History Tobacco Use Types Packs/Day Years Used Date Smoking Tobacco: Former Cigarettes Q uit: 2005 Tobacco Cessation:Counseling Given: Not Answered Alcohol Use Standard Drinks/Week Comments Not Currently 0 (1 standard drink = 0.6 oz pur e alcohol) Feeling Safe Answer Date Recorded Are you in a relationship wi th someone who hurts you emotionally and/or physically? No 12/24/2024 Food Insecurity Answer Date Recorded Social/Environmental Concerns No concerns Transportation Needs Answer Date Record ed Social/Environmental Concerns No concerns Housing Stability Answer Date Recorded Social/Environmental Concerns No concerns Utility Needs Answer Date Recorded Social/Environmental Concerns No concerns Comments No Sex and Gender Information Value Date Recorded Sex Assigned at Not on file Legal Sex Female 10:20 AM PATTERN MARKER Gender Identity Not on file Sexual Orientation Not on file Last Filed Vital Signs Vital Sign Reading Time Taken Comments Blood Pressure 134/59 12/25/2024 12:16 PM PATTERN MARKER Pulse 74 12/25/2024 12:00 PM PATTERN MARKER Temperature 36.7 C (98.1 F) 12/25/2024 7:23 AM PATTERN MARKER Respiratory Rate 18 12/25/2024 12:00 PM PATTERN MARKER Oxygen Saturation 98% 12/25/2024 12:00 PM PATTERN MARKER Inhaled Oxygen Concentration - - Weight 95.8 kg (211 lb 3.2 oz) 12/24/2024 5:37 P M PATTERN MARKER Height 157.5 cm (5' 2 ) 12/24/2024 5:37 PM PATTERN MARKER Body Mass Index 38.63 12/24/2024 5:37 PM PATTERN MARKER Plan of Treatment Health Maintenance Due Date Last Done Comments DTAP/TDAP/TD VACCINES (1 - Tdap) 1975 FIT-DNA Q 3 years 2001 FIT/FOBT Q 1 year 2001 Flex Sig/CT Colonography Q 5 years 2001 PNEUMOCOCCAL VACCINE 50+ YEA RS (1 of 1 - PCV) 2006 RSV VACCINE (60+ or ) (1 - Risk 60-74 years 1-dose series) 2016 OSTEOPOROSIS SCREENING 2021 COVID-19 Vaccine (3 - 2023-2 5 season) 2024 11/10/2020, 10/20/2020 Medicare Advantage ([place]) Preventative Visit/Annual Wellness Visit 10/31/2024 BREAST CANCER SCREENING 05/28/2025 05/28/20 24, 05/28/2024, 05/28/2021 Pre-Diabetes and Diabetes Screening 12/25/2027 12/25/2024 COLORECTAL SCREENING 06/14/2029 06/14/2019 Colorectal Cancer Screening 06/14/2029 ZOSTER VACCINE Completed 01/23/2022, 11/21/2021 INFLUENZA VACCINE Completed 08/10/2024, , 08/19/2023, Additional history exists Medical Devices Implanted Type Area Clockmaker Device Identifier Shelf Expiration Date Model / Serial / Lot Seamguard Endopath 60 [id number] - [id number] Implanted:Qt y: 1 on 12/24/2024 by Satya Shaikh MD at [facility] Biological N/A: Stomach [employer] [id number] 07/29/2027 [id number] / / [id number] Seamguard Endopath 60 [id number] - [id number] Implanted:Qt y: 1 on 12/24/2024 by Satya Shaikh MD at [facility] Biological N/A: Stomach [employer] [id number] 07/29/2027 [id number] / / [id number] Seamguard Endopath 60 [id number] - [id number] Implanted:Qt y: 1 on 12/24/2024 by Satya Shaikh MD at [facility] Biological N/A: Stomach [employer] [id number] 07/29/2027 [id number] / / [id number] Seamguard Endopath 60 [id number] - [id number] Implanted:Qt y: 1 on 12/24/2024 by Satya Shaikh MD at [facility] Biological N/A: Stomach [employer] [id number] 07/29/2027 [id number] / / [id number] Early Childhood Teacher Ligamax Endo Multi Clip 5mm [id number] - [id number] Implanted:Qt y: 1 on 12/24/2024 by Satya Shaikh MD at [facility] Clip N/A: Stomach [employer] [id number] 08/30/2029 [id number] / / [id number] Knee Foot Lens Procedures Procedure Name Priority Date/Time Associated Diagnosis Comments HEMOGLOBIN A1C Routine 12/25/2024 5:45 AM PATTERN MARKER BASIC METABOLIC PANEL Routine 12/25/2024 5:45 AM PATTERN MARKER CBC WITHOUT DIFFERENTIAL Routine 12/25/2024 5:45 AM PATTERN MARKER OR ANES INSERT ENDOTRACHEAL AIRWAY Routine 12/24/2024 1:27 PM PATTERN MARKER OR LAPS GSTRC RSTRICTIV PX LONGITUDINAL GASTRECTOMY 12/24/2024 11:30 AM PATTERN MARKER Morbid (severe) obesity due to excess calories (CMS/HCC) Case Notes ON Q PAIN PUMP 2-10-25rf from Last 3 Months Results * (ABNORMAL) CBC WITHOUT DIFFERENTIAL (12/25/2024 5:45 AM PATTERN MARKER) WBC 8.6 4.0 - 11.0 K/uL 12/25/2024 6:12 AM [facility] [employer] Organization [facility] RBC 3.76(L) 4.20 - 5.40 M/uL 12/25/2024 6:12 AM [facility] [employer] Organization [facility] HEMOGLOBIN 12.8 11.9 - 15.1 g/dL 12/25/2024 6:12 AM [facility] [employer] Organization [facility] HEMATOCRIT 37.0(L) 38.0 - 47.0 % 12/25/2024 6:12 AM [facility] [employer] Organization [facility] MCV 98.4(H) 80.0 - 98.0 fL 12/25/2024 6:12 AM [facility] [employer] Organization [facility] MCH 34.0 26.0 - 34.0 pg 12/25/2024 6:12 AM [facility] [employer] Organization [facility] MCHC 34.6 31.0 - 37.0 g/dL 12/25/2024 6:12 AM [facility] [employer] Organization [facility] PLATELETS 238 150 - 400 K/uL 12/25/2024 6:12 AM [facility] [employer] Organization [facility] MPV 10.8 8.5 - 12.5 fL 12/25/2024 6:12 AM [facility] [employer] Organization [facility] RDW 12.3 11.5 - 14.5 % 12/25/2024 6:12 AM [facility] [employer] Organization [facility] RDW-STDEV 44.4 34.0 - 54.0 fL 12/25/2024 6:12 AM [facility] [employer] Organization [facility] Blood Venipuncture / Unknown 12/25/2024 5:45 AM PATTERN MARKER 12/25/2024 6:08 AM PATTERN MARKER Satya Shaikh MD HEMATOLOGY ORDERABLES [facility] [employer] [facility] [place] CLIA # [id number] [address] [address] * HEMOGLOBIN A1C (12/25/2024 5:45 AM PATTERN MARKER) HEMOGLOBIN A1C 4.8 <=5.6 % 12/25/2024 7:19 AM [facility] [place] EST. AVG GLUCOSE, A1C 91 mg/dL 12/25/2024 7:19 AM [facility] [place] Blood Venipuncture / Unknown 12/25/2024 5:45 AM PATTERN MARKER 12/25/2024 6:32 AM PATTERN MARKER Narrative [facility] [place] - 12/25/2024 7:19 AM PATTERN MARKER HGB A1C INTERPRETATION NORMAL: <5.7% PRE-DIABETES: 5.7 - 6.4% DIABETES: 6.5% OR GREATER Satya Shaikh MD CHEMISTRY ORDERABLES Final Resul t [facility] [employer] [facility] [place] CLIA # [id number] [address] [address] * (ABNORMAL) BASIC METABOLIC PANEL (12/25/2024 5:45 AM PATTERN MARKER) SODIUM 137 136 - 145 mmol/L 12/25/2024 6:[address] [facility] [employer] [facility] [place] POTASSIUM 4.5 3.5 - 5.1 mmol/L 12/25/2024 6:32 AM [facility] [place] CHLORIDE 103 98 - 107 mmol/L 12/25/2024 6:32 AM [facility] [place] CO2 22 22 - 29 mmol/L 12/25/2024 6:32 AM [facility] [place] CALCIUM 8.5(L) 8.8 - 10.2 mg/dL 12/25/2024 6:32 AM [facility] [place] BUN 8 8 - 23 mg/dL 12/25/2024 6:32 AM [facility]ATININE 0.58 0.51 - 0.95 mg/dL 12/25/2024 6:32 AM [facility] GLUCOSE 147(H) 74 - 99 mg/dL 12/25/2024 6:32 AM [facility] [place] GFR >60 >=60 mL/min/1.7 3 sq meter 12/25/2024 6:32 AM [facility] Comment:eGFR calculated with 2020 CKD-EPI equation. Vegetarian diet, extremely high or low muscle mass, and may affect results. Cystatin C with Glomerular Filtration Rate is a suitable alternative for these patients. ANION GAP 12 5 - 15 mmol/L 12/25/2024 6:32 AM [facility] Blood Venipuncture / Unknown 12/25/2024 5:45 AM PATTERN MARKER 12/25/2024 6:[address] [facility] Satya Shaikh MD CHEMISTRY ORDERABLES Final Resul t [facility] CLIA # [id number] [facility] [address] [place] [address] * OR ANES INSERT ENDOTRACHEAL AIRWAY (12/24/2024 1:27 PM PATTERN MARKER) Narrative Michael Krueger CRNA - 12/24/2024 1:27 PM PATTERN MARKER Michael Krueger CRNA 12/24/2024 1:38 PM Airway Date/Time: 12/24/2024 1:27 PM Location: OR Plan: routine intubation Patient Identity Confirmed by: Verbally with patient and armband Airway: not difficult Staffing Performed: PILLOWCASE FOLDER/CAA Authorized by: Simone Donald MD Performed by: Michael Krueger CRNA Indications and Patient Condition: Indications for Airway Management: Anesthesia Sedation Level: general anesthesia Preoxygenated: yes Patient Position: Sniffing Mask Difficulty Assessment: 1 - vent by mask Plan to extubate at end of case: Yes Final Airway Details: Final Airway Type: Endotracheal airway ETT Cuffed: Yes Cuff Volume (mL): 7 Technique Used for Successful ETT Placement: Direct laryngoscopy Devices/Methods Used in Placement: Cricoid pressure Blade Type: curved blade Blade Size: 3 Insertion Site: Oral ETT Size (mm): 7.5 Measured from: Teeth ETT to Teeth (cm): 20 Tube secured with: Tape Placement Verified by: auscultation, end tidal CO2 and chest rise Cormack-Lehane Classification: Grade I - full view of glottis Number of Attempts at Approach: 1 Additional Procedure Information: atraumatic and dentition unchanged Simone Donald MD PROCEDURE/MINOR SURGICAL SAMM PIMENTEL Final Result from Last 3 Months Insurance [employer] Medicare Part D Advance Directives For more information, please contact: [phone] * Full Code (Latest Code Status on File) Date Activated Date Inactivated Comments 12/24/2024 12:45 PM 12/25/2024 6:15 PM * Full Code Date Activated Date Inactivated Comments 12/24/2024 11:13 AM 12/24/2024 12:45 PM
--- OUTSIDE RECORDS SUMMARY | 2025-02-04 06:51 | XMS_ITS | Encounter Summary ---
Author Organization [facility] Address [address] [place] [address] Phone Care Team Providers Care Dumper Name Role Phone Shanell Diana APRN, CHEMIST ORGANIC Unavailable [phone] Tina Gallagher Primary Care Provider + Rukhsana Guzman MD Unavailable [phone] Reason for Visit * Reason Comments Medication Refill Encounter Details Date Type Department Care Team (Late st Contact Info) Description 04/19/[address] [facility] - Family Medicine [facility] [address] [place] [address] Leanna Rascon APRN, CHEMIST ORGANIC [address] [address] Medication Refill Social History Tobacco Use Types Packs/Day Years Used Date Smoking Tobacco: Former Cigarettes Q uit: 07/21/2014 Smokeless Tobacco: Never Alcohol Use Standard Drinks/Week Comments Yes 0 (1 standard drink = 0.6 oz pur e alcohol) [facility] Utilities Answer Date Recorded In the past 12 months has th e electric, gas, oil, or water company threatened to shut off services in your home? No 03/06/2024 Social Connection and Isolation Panel [NHANES] A nswer Date Recorded In a typical week, how many times do you talk on the phone with family, friends, or neighbors? Three times a week 03/06/2024 How often do you get togethe r with friends or relatives? Once a week 03/06/2024 How often do you attend chur ch or anglican services? Never 03/06/2024 Do you belong to any clubs o r organizations such as episcopal groups, unions, fraternal or athletic groups, or school groups? No 03/06/2024 How often do you attend meet ings of the clubs or organizations you belong to? Never 03/06/2024 Are you , , di vorced, , never , or living with a partner? Never 03/06/2024 AUDIT-C Answer Date Recorded Q1: How often do you have a drink containing alc ohol? Monthly or less 03/06/2024 Q2: How many drinks containi ng alcohol do you have on a typical day when you are drinking? 1 or 2 03/06/2024 Q3: How often do you have si x or more drinks on one occasion? Never 03/06/2024 Overall Financial Resource Strain (CARDIA) Answe r Date Recorded How hard is it for you to pa y for the very basics like food, housing, medical care, and heating? Not very hard 03/06/2024 PHQ-2 Answer Date Recorded Total Score - Questions 1-9 0 07/2024 [facility] - Occupational Stress Questionnaire Answer Date Recorded Do you feel stress - tense, restless, nervous, or anxious, or unable to sleep at night because your mind is troubled all the time - these days? Only a little 03/06/2024 Exercise Vital Sign Answer Date Recorde d On average, how many days pe r week do you engage in moderate to strenuous exercise (like a brisk walk)? 4 days 03/06/2024 On average, how many minutes do you engage in exercise at this level? 20 min 03/06/2024 Hunger Vital Sign Answer Date Recorded Within the past 12 months, y ou worried that your food would run out before you got the money to buy more. Never true 03/06/20 24 Within the past 12 months, t he food you bought just didn't last and you didn't have money to get more. Never true 03/06/2024 PRAPARE - Transportation Answer Date Re corded In the past 12 months, has l ack of transportation kept you from medical appointments or from getting medications? No 04/2024 In the past 12 months, has l ack of transportation kept you from meetings, work, or from getting things needed for daily living? No 03/06/2024 Housing Stability Vital Sign Answer Kyle e Recorded In the last 12 months, was t here a time when you were not able to pay the mortgage or rent on time? No 03/06/2024 In the last 12 months, how many places have you lived? 1 03/06/2024 In the last 12 months, was t here a time when you did not have a steady place to sleep or slept in a [place] [facility] [place] (including now)? No 03/06/2024 Education Answer Date Recorded What is the [...] Telephone Encounter - Hermila Mistry RN - 04/19/2024 11:14 AM CDT Medication failed the protocol, provider to review and approve the medication order if appropriate. Requested Prescriptions Pending Prescriptions Disp Refills DULoxetine (CYMBALTA) [address] Particles [Pharmacy Med Name: DULOXETINE DR 60MG CAPSULES] 90 Capsule 1 Sig: Take 1 Capsule by mouth daily. SNRI (6 Month Refill Only) Protocol Failed - 04/19/2024 10:59 AM Failed - Has an encounter in the past 6 months with a depression or anxiety visit diagnosis Passed - Visit with relevant provider in past 6 months or upcoming 90 days Recent Visits Date Type Provider Dept 03/08/24 Office Visit Tina Gallagher PAC [facility] Showing recent visits within past 182 days and meeting all other requirements Future Appointments Date Type Provider Dept 06/14/24 Appointment Tina Gallagher PAC [facility] Showing future appointments within next 90 days and meeting all other requirements Passed - Patient has established therapy with Serotonin-Norepinephrine Reuptake Inhibitors for at least 6 months documented in this encounter Plan of Treatment Upcoming Encounters Date Type Department Care Team (Late st Contact Info) Description 02/21/2025 2:00 PM CDT Office Visit [facility] [address] [place] [address] Tina Gallagher PAC [address] [place] [address] documented as of this encounter Visit Diagnoses Not on filedocumented in this encounter Additional Health Concerns Assessment Noted Time PHQ-9 Depression Total Score: 0 03/08/20 24 3:14 PM CDT documented as of this encounter Care Teams Dumper Relationship Specialty Start Date End Date Tina Gallagher PAC [address] [place] [address] PCP - General Physician Photolithographic Stripper 01/01/19 Shanell Diana, MANAGER DIGITAL, CHEMIST ORGANIC Certified Nurse Practitioner 09/06/16 Rukhsana Guzman MD [address] [place] [address] Obstetrics & Gynecology 01/11/19 documented as of this encounter
--- OUTSIDE RECORDS SUMMARY | 2025-02-04 06:51 | XMS_ITS ---
Author Organization [facility] Address [address] [place] [address] Care Team Providers Care Product Scientist Name Role Phone Misael Peace Unavailable [phone] REASON FOR VISIT New Pt-Weight Loss Encounters Encounter Location Date Provider Diagnosis [facility] ([address]) [address] [address] 09/06/2024 Misael Peace Plan Of Treatment No Information Progress Notes * Ciarra RAINEYDOB:1955 (69 yo F)Acc No.[id number]:09/06/2024 CARE TRANSPORT NURSE Weight Loss Patient: Ciarra DOW Provider: Ranjana Peace MD :1955 A ge:68 Y S ex:Female Date:09/06/2024 Address: [address] [id number] Subjective: * Chief Complaints: * 1 . New Pt-Weight Loss. * Medical History: Objective: * Vitals: Assessment: Plan: * Treatment: * Billing Information: * Visit Code: * Procedure Codes: * Electronic signature of Godfrey Peace MD, FAAAAI on 02/04/2025 at 06:50 AM CDT Sign off status: Pending * Provider: Ranjana Peace MD Date: 11/06/2023 Generated for Herbi ng/Eliel/eTransmitting on: 0 02/04/2025 06:50 AM CDT
--- OUTSIDE RECORDS SUMMARY | 2025-02-04 06:51 | XMS_ITS | Clinical Summary ---
Author Organization [facility] Address [address] [place] [address] Phone Care Team Providers Care Pediatric Neurologist Name Role Phone Shanell Diana APRN, SUSTAINABILITY PROJECT MANAGER Unavailable [phone] Tina Gallagher Primary Care Provider + Rukhsana Guzman MD Unavailable [phone] Allergies Active Allergy Reactions Criticality Noted Date Comments Tramadol Nausea 07/06/2019 Medications hydroxychloroquine (PLAQUENIL) 200 MG Tablet Take 2 Tablets by mouth daily. 1 Active methotrexate 2.5 MG Tablet Take 5 Tablets by mouth once a week 1 Active folic acid (FOLVITE) 1 MG Tablet 1 Active Rinvoq 15 MG TABLET SR 24 HR 3 Active meloxicam (MOBIC) 15 MG Tablet Take 1 Tablet by mouth daily. 4 Active tiZANidine (ZANAFLEX) 2 MG Tablet Take 1 Tablet by mouth 3 times daily as needed for Muscle spasms. 30 Tablet 4 Active buPROPion (WELLBUTRIN) 150 MG XL tablet Take 1 Tablet by mouth every morning. 90 Tablet 4 Active omeprazole (PriLOSEC) 40 MG CAPSULE DELAYED RELEASE TAKE 1 CAPSULE BY MOUTH EVERY MORNING 90 Capsule 1 4 Active DULoxetine (CYMBALTA) [address] Particles Take 1 Capsule by mouth daily. 90 Capsule 1 4 Active HYDROcodone-acetam inophen (NORCO) 5-325 MG TabletIndications: Right knee pain Take 1 Tablet by mouth every 8 hours as needed for Severe pain. 12 Tablet 5 Active HYDROcodone-acetam inophen (NORCO) 5-325 MG TabletIndications: PMR (polymyalgia rheumatica) (HCC),Degenerative disc disease, lumbar,Osteoarthri tis of right knee, unspecified osteoarthritis type Take 1 Tablet by mouth every 4 hours as needed for Severe pain. 45 Tablet 5 Active HYDROcodone-acetam inophen (NORCO) 5-325 MG TabletIndications: PMR (polymyalgia rheumatica) (HCC),Degenerative disc disease, lumbar,Osteoarthri tis of right knee, unspecified osteoarthritis type Take 1 Tablet by mouth every 4 hours as needed for Severe pain. 45 Tablet 5 01/08/20 25 Discontin ued(Reord er) Active Problems Problem Noted Date Diagnosed Date Migraine headache Vitamin D deficiency Osteopenia Obesity Overview (09/16/2015): BMI 31 Hemorrhoids Genital atrophy of female Dyspareunia Encounters Date Type Department Care Team Description 01/07/2025 MyChart RX Renewal [facility] [address] [place] [address] Tina Gallagher, YUNG Medication Renewal Reviewed 01/01/2025 Travel 12/27/2024 10:37 AM LATEX SPOOLER - 12/27/2024 3:11 PM LATEX SPOOLER [facility] [address] [place] [address] Zhen Gutierrez PAC Bilateral hip pain Discharge Disposition: Discharged to home or Selfcare 12/27/2024 Telephone [facility] [address] [place] [phone] Tina Gallagher PAC Advice Only; Fall; Knee Pain 12/27/2024 Travel 12/21/2024 Documentation Only [facility] [address] [place] [address] Tina Gallagher PAC 12/19/2024 [facility] [address] [place] [address] Tina Gallagher PAC Request for Records 11/30/2024 [facility] [place] [address] Tina Gallagher PAC 11/21/2024 11:34 AM LATEX SPOOLER - 11/21/2024 11:59 PM LATEX SPOOLER Hospital [facility] [address] [place] [address] Tina Gallagher PAC Discharge Disposition: Discharged to home or Selfcare 11/21/2024 10:45 AM LATEX SPOOLER Office Visit [facility] [address] [place] [address] Tina Gallagher PAC PMR (polymyalgia rheumatica) (HCC) (Primary Dx); BMI 39.0-39.9,adult; Pre-operative general physical examination; High risk medication use; Degenerative disc disease, lumbar; Osteoarthritis of right knee, unspecified osteoarthritis type Discharge Disposition: Discharged to home or Selfcare 11/19/2024 Travel 11/06/2024 Patient Outreach [facility] [address] [place] [address] Marzena Coulter CNA Care Management from Last 3 Months Immunizations Immunization Administration Dates Next Due Covid-19, Mrna, Lnp-s, Pf, 30 Mcg/0.3 Ml Dose (P shawn) 11/10/2020,10/20/2020 Influenza Vaccine 08/10/2024,08/04/2018 Influenza Vaccine greater than 3 yrs 08/14/2022, 10/31/2011 Influenza Vaccine less than 3 yrs 07/10/2024, Influenza Vaccine, Quadrivalent, PF 07/14/2020,1 Influenza, Seasonal, Injectable, Undefined 08/14,10/31/2011 TD VACCINE 02/28/2014 Zoster Vaccine Recombinant 01/23/2022,11/21/2021 Family History Medical History Relation Name Comments Osteoarthritis Brother JDN Cancer Father AIN Pancreas Diabetes Father AIN Hypertension Father AIN Cancer Maternal Grandmother MMK Uterus Cancer Mother MJN Stomach lung Stroke Mother MJN Osteoarthritis Sister 1 LRN Rheumatoid Arthritis Sister 1 LRN Diabetes Sister 2 AIN Hypertension Sister 2 AIN Cancer Sister 3 AJG Uterus Osteoarthritis Sister 3 AJG Diabetes Sister 4 GLN Hypertension Sister 5 AJN Rheumatoid Arthritis Sister 5 AJN Thyroid Disease Sister 5 AJN Relation Name Status Comments Brother JDN Alive Father AIN Maternal Grandmother MMK Mother MJN Sister 1 LRN Alive Sister 2 AIN Sister 3 AJG Alive Sister 4 GLN Alive Sister 5 AJN Alive Social History Tobacco Use Types Packs/Day Years Used Date Smoking Tobacco: Former Cigarettes 0.5 15 Q uit: 07/21/2014 Smokeless Tobacco: Never Tobacco Cessation:Counseling Given: No Alcohol Use Standard Drinks/Week Comments Yes 0 (1 standard drink = 0.6 oz pur e alcohol) RARELY Birdiities Answer Date Recorded In the past 12 months has [employer] electric, gas, oil, or water company threatened to shut off services in your home? No 11/19/2024 Social Connection and Isolation Panel [NHANES] A nswer Date Recorded In a typical week, how many times do you talk on the phone with family, friends, or neighbors? Twice a week 11/19/2024 How often do you get together with friends or re latives? Once a week 11/19/2024 How often do you attend jain or orthodox serv ices? Never 11/19/2024 Do you belong to any clubs o r organizations such as jain groups, unions, fraternal or athletic groups, or school groups? No 11/19/2024 How often do you attend meet ings of the clubs or organizations you belong to? Never 11/19/2024 Are you , , di vorced, , never , or living with a partner? Never 11/19/2024 AUDIT-C Answer Date Recorded Q1: How often do you have a drink containing alc ohol? Monthly or less 11/19/2024 Q2: How many drinks containi ng alcohol do you have on a typical day when you are drinking? 1 or 2 11/19/2024 Q3: How often do you have si x or more drinks on one occasion? Never 11/19/2024 Overall Financial Resource Strain (CARDIA) Answe r Date Recorded How hard is it for you to pa y for the very basics like food, housing, medical care, and heating? Not very hard 11/19/2024 PHQ-2 Answer Date Recorded Total Score - Questions 1-9 [address]01 [facility] - Occupational Stress Questionnaire Answer Date Recorded Do you feel stress - tense, restless, nervous, or anxious, or unable to sleep at night because your mind is troubled all the time - these days? To some extent 11/19/2024 Exercise Vital Sign Answer Date Recorde d On average, how many days pe r week do you engage in moderate to strenuous exercise (like a brisk walk)? 3 days 11/19/2024 On average, how many minutes do you engage in exercise at this level? 20 min 11/19/2024 Hunger Vital Sign Answer Date Recorded Within the past 12 months, y ou worried that your food would run out before you got the money to buy more. Never true 11/19/19 25 Within the past 12 months, t he food you bought just didn't last and you didn't have money to get more. Never true 11/19/2024 PRAPARE - Transportation Answer Date Re corded In the past 12 months, has l ack of transportation kept you from medical appointments or from getting medications? No 11/01 In the past 12 months, has l ack of transportation kept you from meetings, work, or from getting things needed for daily living? No 11/19/2024 Housing Stability Vital Sign Answer Kyle e [...] place to sleep or slept in a chcf (including now)? No 03/06/2024 Housing Stability Vital Sign Answer Kyle e Recorded In the last 12 months, was t here a time when you were not able to pay the mortgage or rent on time? No 11/19/2024 Number of Times Moved in the Last Year Not on fi le 11/19/2024 At any time in the past 12 m onths, were you homeless or living in a chcf (including now)? No 11/19/2024 Education Answer Date Recorded What is the highest level of school you have completed or the highest degree you have received? Associate degree: occupational, technical, or vocational program 11/03/2021 Sexually Active Control Partners Comments Not Currently Post-menopausal Male Comments No Sex and Gender Information Value Date Recorded Sex Assigned at Not on file Legal Sex Female 10:57 PM CDT Gender Identity Not on file Sexual Orientation Not on file Last Filed Vital Signs Vital Sign Reading Time Taken Comments Blood Pressure 127/73 12/27/2024 2:15 PM LATEX SPOOLER Pulse 100 12/27/2024 2:45 PM LATEX SPOOLER Temperature 37.2 C (99 F) 12/27/2024 10:41 AM LATEX SPOOLER Respiratory Rate 16 12/27/2024 2:45 PM LATEX SPOOLER Oxygen Saturation 99% 12/27/2024 2:45 PM LATEX SPOOLER Inhaled Oxygen Concentration - - Weight 95.7 kg (211 lb) 12/27/2024 10:41 AM LATEX SPOOLER Height 160 cm (5' 3 ) 12/27/2024 10:41 AM LATEX SPOOLER Body Mass Index 37.38 12/27/2024 10:41 AM LATEX SPOOLER Plan of Treatment Upcoming Encounters Date Type Department Care Team (Late st Contact Info) Description 02/21/2025 2:00 PM CDT Office Visit [facility] [address] [place] [address] Tina Gallagher, YUNG [address] [place] [address] Health Maintenance Due Date Last Done Comments TdaP Immunization 1955 Cologuard 2006 Immunochemical Fecal Occult Blood 2006 Pneumococcal Immunization (50+ years) (1 of 1 - PCV) 2006 Hepatitis B Immunization (1 of 3 - Risk 3-dose series) 2016 Respiratory Syncytial Virus (RSV) Immunization (Adult) (1 - Risk 60-74 years 1-dose series) 2016 SARS-COV-2 Immunization ( season) 2024 09/10/2022, 08/07/2021, 11/10/2020, Additional history exists Mammogram 05/28/2025 05/28/2024, 04/0 02/2023, 05/28/2021, Additional history exists DEXA Bone Density 08/10/2025 08/10/2023 Colonoscopy 06/14/2027 06/14/2019, 06/25/2011 Colorectal Cancer Screening 06/14/2027 06/14/2019, 06/25/2011 Hepatitis C Virus (HCV) Screening Completed 11/07/2018 Cervical Cancer Screening (CCS) Discontinued Pap Smear Discontinued 12/25/2018, 04/0 03/2016, 01/14/2015, Additional history exists Zoster Immunization Completed 01/23/2022, Influenza Immunization Completed , 07/10/2024, 08/19/2023, Additional history exists HPV/Cotest Discontinued Meningococcal Immunization (ACWY) Aged Out No longer eligible based on patient's age to complete this topic Rotavirus Immunization Aged Out No lo nger eligible based on patient's age to complete this topic Procedures Procedure Name Priority Date/Time Associated Diagnosis Comments CT RIGHT HIP WO CONTRAST Stat with Interpretation 12/27/2024 12:53 PM LATEX SPOOLER XR KNEE 1 OR 2 VIEWS RIGHT STAT 12/27/2024 11:20 AM LATEX SPOOLER XR HIP 2 VIEWS BILATERAL WITH AP PELVIS STAT 12/27/2024 11:20 AM LATEX SPOOLER URINE DRUG SCREEN Routine 11/22/2024 PMR (polymyalgia rheumatica) (HCC) High risk medication use EKG 12 LEAD Routine 11/21/2024 11:40 AM LATEX SPOOLER PMR (polymyalgia rheumatica) (HCC) BMI 39.0-39.9,adult Pre-operative general physical examination High risk medication use CBC WITH AUTO DIFFERENTIAL Routine 11/21/2024 11:35 AM LATEX SPOOLER PMR (polymyalgia rheumatica) (HCC) BMI 39.0-39.9,adult Pre-operative general physical examination High risk medication use COMPLETE BLOOD COUNT (CBC) WITH DIFF Routine 11/21/2024 11:35 AM LATEX SPOOLER PMR (polymyalgia rheumatica) (HCC) BMI 39.0-39.9,adult Pre-operative general physical examination High risk medication use CMP (COMPREHENSIVE METABOLIC PANEL) Routine 11/21/2024 11:35 AM LATEX SPOOLER PMR (polymyalgia rheumatica) (HCC) BMI 39.0-39.9,adult Pre-operative general physical examination High risk medication use REKHA SCREENING BILATERAL DIGITAL W CAD Routine 05/28/2024 12:00 AM CDT Screening mammogram for breast cancer HM COLONOSCOPY Routine 06/14/2019 PATHOLOGY CYTOLOGY JAVA SOFTWARE DEVELOPER Routine 12/25/2018 HEPATITIS C ANTIBODY Routine 11/07/2018 from Last 3 Months or Most Recently Relevant to Health Maintenance Results * CT RIGHT HIP WO CONTRAST (12/27/2024 12:53 PM LATEX SPOOLER) Anatomical Region Laterality Modality LOWER EXTREMITY Right Computed Tomogra phy 12/27/2024 1:02 PM LATEX SPOOLER Impressions 12/27/2024 1:04 PM LATEX SPOOLER IMPRESSION: No acute finding. No evidence of right hip fracture Narrative 12/27/2024 1:04 PM LATEX SPOOLER EXAM DESCRIPTION: CT RIGHT HIP WO CONTRAST REASON FOR STUDY: Right hip pain s/p GLF 2 days ago. Abnormal hip x-ray today. TECHNIQUE: CT scan of the right hip was performed without intravenous contrast. Reconstructed coronal and sagittal MPR images reviewed. Automated exposure control was used as a dose optimization technique for this examination. COMPARISON: 12/27/2024 plain radiographs FINDINGS: Pelvic Bones: Incompletely visualized. No visible fracture. Hip Joint: No fracture or dislocation. Pelvic Soft Tissues: Unremarkable. Other: No other finding. THIS IS AN ELECTRONICALLY VERIFIED FINAL REPORT 12/27/2024 1:02 PM - Electronically signed by Nimesh Burnett M.D. RB: RB Report ID: [id number] Reading Location: [id number] Procedure Note Nimseh Burnett MD - 12/27/2024 EXAM DESCRIPTION: CT RIGHT HIP WO CONTRAST REASON FOR STUDY: Right hip pain s/p GLF 2 days ago. Abnormal hip x-ray today. TECHNIQUE: CT scan of the right hip was performed without intravenous contrast. Reconstructed coronal and sagittal MPR images reviewed. Automated exposure control was used as a dose optimization technique for this examination. COMPARISON: 12/27/2024 plain radiographs FINDINGS: Pelvic Bones: Incompletely visualized. No visible fracture. Hip Joint: No fracture or dislocation. Pelvic Soft Tissues: Unremarkable. Other: No other finding. THIS IS AN ELECTRONICALLY VERIFIED FINAL REPORT 12/27/2024 1:02 PM - Electronically signed by Nimesh Burnett M.D. RB: RAJESH Report ID: [id number] Reading Location: [id number] IMPRESSION: No acute finding. No evidence of right hip fracture Zhen Dudleyn PAC IMG CT ORDERABLES Fi nal Result * XR KNEE 1 OR 2 VIEWS RIGHT (12/27/2024 11:20 AM LATEX SPOOLER) Anatomical Region Laterality Modality LOWER EXTREMITY, knee Right Digital Ra diography 12/27/2024 12:0 7 PM LATEX SPOOLER Impressions 12/27/2024 12:09 PM LATEX SPOOLER IMPRESSION: Mild osteopenia with degenerative changes of the right knee without definite evidence of acute displaced fracture or dislocation. Small suprapatellar joint effusion. Narrative 12/27/2024 12:09 PM LATEX SPOOLER EXAM DESCRIPTION: XR KNEE 1 OR 2 VIEWS RIGHT REASON FOR STUDY: pain in bilat hips, right knee after GLF x 2 days ago. pt states right hip hurts worse than left. limited ROM of right knee, unable to bear weight. TECHNIQUE: 2 radiographic view(s) of the right knee . COMPARISON: None FINDINGS: There is mild osteopenia. There is no definite evidence of acute displaced fracture or dislocation involving the right knee. There are degenerative changes of the right knee with joint space narrowing, mild spurring, and minimal sclerosis. There is a small suprapatellar joint effusion. THIS IS AN ELECTRONICALLY VERIFIED FINAL REPORT 12/27/2024 12:07 PM - Electronically signed by Socorro Valentin D.O. PS: PS Report ID: [id number] Reading Location: [id number] Procedure Note Socorro Valentin DO - 12/27/2024 EXAM DESCRIPTION: XR KNEE 1 OR 2 VIEWS RIGHT REASON FOR STUDY: pain in bilat hips, right knee after GLF x 2 days ago. pt states right hip hurts worse than left. limited ROM of right knee, unable to bear weight. TECHNIQUE: 2 radiographic view(s) of the right knee . COMPARISON: None FINDINGS: There is mild osteopenia. There is no definite evidence of acute displaced fracture or dislocation involving the right knee. There are degenerative changes of the right knee with joint space narrowing, mild spurring, and minimal sclerosis. There is a small suprapatellar joint effusion. THIS IS AN ELECTRONICALLY VERIFIED FINAL REPORT 12/27/2024 12:07 PM - Electronically signed by Socorro Valentin D.O. PS: PS Report ID: [id number] Reading Location: [id number] IMPRESSION: Mild osteopenia with degenerative changes of the right knee without definite evidence of acute displaced fracture or dislocation. Small suprapatellar joint effusion. Zhen Gutierrez PAC IMG DIAGNOSTIC ORDER ADRIANA Final Result * XR HIP 2 VIEWS BILATERAL WITH AP PELVIS (12/27/2024 11:20 AM LATEX SPOOLER) Anatomical Region Laterality Modality LOWER EXTREMITY, hip, Pelvis Bilateral Dig ital Radiography 12/27/2024 12:0 9 PM LATEX SPOOLER Impressions 12/27/2024 12:11 PM LATEX SPOOLER IMPRESSION: Subtle lucency involving the right femoral neck, which raises the concern for a minimally displaced fracture. Further evaluation with CT is recommended as clinically indicated. Narrative 12/27/2024 12:11 PM LATEX SPOOLER EXAM DESCRIPTION: XR HIP 2 VIEWS BILATERAL WITH AP PELVIS REASON FOR STUDY: pain in bilat hips, right knee after GLF x 2 days ago. pt states right hip hurts worse than left. limited ROM of right knee, unable to bear weight. TECHNIQUE: Single frontal radiograph of the pelvis is obtained with 2 radiographs of the bilateral hips with frontal and lateral projections. COMPARISON: None FINDINGS: There is mild osteopenia. There is a subtle lucency involving the right femoral neck, which raises the concern for a minimally displaced fracture. There are mild degenerative changes bilateral hips with joint space narrowing and mild sclerosis. There are degenerative changes visualized lower lumbar spine. There are degenerative changes bilateral sacroiliac joints with joint space narrowing and mild sclerosis. The visualized soft tissues are acutely grossly unremarkable. THIS IS AN ELECTRONICALLY VERIFIED FINAL REPORT 12/27/2024 12:09 PM - Electronically signed by Socorro Valentin D.O. PS: PS Report ID: [id number] Reading Location: [id number] Procedure Note Socorro Valentin DO - 12/27/2024 EXAM DESCRIPTION: XR HIP 2 VIEWS BILATERAL WITH AP PELVIS REASON FOR STUDY: pain in bilat hips, right knee after GLF x 2 days ago. pt states right hip hurts worse than left. limited ROM of right knee, unable to bear weight. TECHNIQUE: Single frontal radiograph of the pelvis is obtained with 2 radiographs of the bilateral hips with frontal and lateral projections. COMPARISON: None FINDINGS: There is mild osteopenia. There is a subtle lucency involving the right femoral neck, which raises the concern for a minimally displaced fracture. There are mild degenerative changes bilateral hips with joint space narrowing and mild sclerosis. There are degenerative changes visualized lower lumbar spine. There are degenerative changes bilateral sacroiliac joints with joint space narrowing and mild sclerosis. The visualized soft tissues are acutely grossly unremarkable. THIS IS AN ELECTRONICALLY VERIFIED FINAL REPORT 12/27/2024 12:09 PM - Electronically signed by Socorro Valentin D.O. PS: PS Report ID: [id number] Reading Location: [id number] IMPRESSION: Subtle lucency involving the right femoral neck, which raises the concern for a minimally displaced fracture. Further evaluation with CT is recommended as clinically indicated. Zhen Gutierrez PAC IMG DIAGNOSTIC ORDER ADRIANA Final Result * URINE DRUG SCREEN (11/22/2024) Urine 11/22/2024 Tina Gallagher PAC URINE ORDERABLES Final R esult * EKG 12 LEAD (11/21/2024 11:40 AM LATEX SPOOLER) Ventricular Rate 88 BPM EXTERNAL EKG Atrial Rate 88 BPM EXTERNAL EKG P-R Interval 162 ms EXTERNAL EKG QRS Duration 78 ms EXTERNAL EKG Q-T Duration 348 ms EXTERNAL EKG QTC CALCULATION 421 ms EXTERNAL EKG P [place] 46 degrees EXTERNAL EKG R [place] -9 degrees EXTERNAL EKG T [place] 33 degrees EXTERNAL EKG 11/21/2024 11:4 0 AM LATEX SPOOLER Impressions EXTERNAL EKG - 11/24/2024 10:12 AM LATEX SPOOLER Normal sinus rhythm Inferior infarct , age undetermined Abnormal ECG ~ Confirmed by Dereck Rooney ([id number]) on 11/24/2024 10:12:50 AM Narrative Procedure Note Dereck Rooney MD - 11/24/2024 IMPRESSION: Normal sinus rhythm Inferior infarct , age undetermined Abnormal ECG ~ Confirmed by Dereck Rooney ([id number]) on 11/24/2024 10:12:50 AM Tina Gallagher PAC IMG ECG ORDERABLES Final Result EXTERNAL EKG * (ABNORMAL) CBC WITH AUTO DIFFERENTIAL (11/21/2024 11:35 AM LATEX SPOOLER) WBC 6.57 4.00 - 12.00 10(3)/mcL 11/21/2024 1:30 PM LATEX SPOOLER [facility] RBC 4.09 3.80 - 5.30 10(6)/[facility] 11/21/2024 1:[address] [facility] HEMOGLOBIN (HGB) 14.1 12.0 - 15.8 g/dL 11/21/2024 1:[address] [facility] HEMATOCRIT (HCT) 42.1 36.0 - 47.0 % 11/21/2024 1:[address] [facility] MCV 102.9(H) 82.0 - 96.0 fL 11/21/2024 1:[address] [facility] MCH 34.5(H) 26.0 - 34.0 pg 11/21/2024 1:[address] [facility] MCHC 33.5 31.0 - 36.0 g/dL 11/21/2024 1:[address] [facility] PLATELET COUNT 347 140 - 440 10(3)/mcL 11/21/2024 1:[address] [facility] RDW 12.1 11.8 - 15.5 % 11/21/2024 1:[address] [facility] MPV 11.3 9.7 - 12.4 fL 11/21/2024 1:[address] [facility] NEUTROPHILS 60.7 47.0 - 73.0 % 11/21/2024 1:[address] [facility] LYMPHOCYTES 28.0 18.0 - 42.0 % 11/21/2024 1:[address] [facility] MONOCYTES 9.1 4.0 - 12.0 % 11/21/2024 1:[address] [facility] EOSINOPHILS 1.7 0.0 - 5.0 % 11/21/2024 1:[address] [facility] BASOPHILS 0.5 0.0 - 1.0 % 11/21/2024 1:[address] [facility] ABSOLUTE NEUTROPHILS 3.99 1.60 - 7.70 10(3)/mcL 11/21/2024 1:[address] [facility] ABSOLUTE LYMPHOCYTES 1.84 1.30 - 3.20 10(3)/mcL 11/21/2024 1:30 PM LATEX SPOOLER [facility] ABSOLUTE MONOCYTES 0.60 0.20 - 1.00 10(3)/[facility] 11/21/2024 1:30 PM LATEX SPOOLER [facility] ABSOLUTE EOSINOPHIL 0.11 0.00 - 0.40 10(3)/[facility] 11/21/2024 1:30 PM LATEX SPOOLER [facility] ABSOLUTE BASOPHILS 0.03 0.00 - 0.10 10(3)/[facility] 11/21/2024 1:30 PM LATEX SPOOLER [facility] NRBC PER 100 WBC 0 11/21/19 1:30 PM LATEX SPOOLER [facility] Blood Venipuncture / Unknown 11/21/2024 11:35 AM LATEX SPOOLER 11/21/2024 1:18 PM LATEX SPOOLER us Tina Gallagher PAC HEMATOLOGY ORDERABLES Fi nal Result [facility] [address] [place] [address] * CMP (COMPREHENSIVE METABOLIC PANEL) (11/21/2024 11:35 AM LATEX SPOOLER) SODIUM 138 136 - 145 mmol/L 11/21/2024 1:[address] [facility] POTASSIUM 4.4 3.5 - 5.1 mmol/L 11/21/2024 1:[address] [facility] CHLORIDE 104 98 - 107 mmol/L 11/21/2024 1:[address] [facility] CO2, VENOUS 24 22 - 30 mmol/L 11/21/2024 1:[address] [facility] ANION GAP 14.4 <18.0 mmol/L 11/21/2024 1:[address] [facility] GLUCOSE 87 70 - 99 mg/dL 11/21/2024 1:[address] [facility] BUN 13 10 - 20 mg/dL 11/21/2024 1:[address] [facility] CREATININE, BLOOD 0.88 0.60 - 1.00 mg/dL 11/21/2024 1:[address] [facility] BUN/CREATININE RATIO 15 12 - 20 ratio 11/21/2024 1:[address] [facility] TOTAL PROTEIN 7.4 6.0 - 8.0 g/dL 11/21/2024 1:[address] [facility] ALBUMIN 4.2 3.5 - 5.0 g/dL 11/21/2024 1:[address] [facility] A/G RATIO 1.3 1.0 - 2.2 11/21/2024 1:[address] [facility] CALCIUM 9.5 8.7 - 10.5 mg/dL 11/21/2024 1:[address] [facility] T BILI 0.5 0.2 - 1.2 mg/dL 11/21/2024 1:[address] [facility] SGOT (AST) 30 6 - 42 U/L 11/21/2024 1:[address] [facility] SGPT (ALT) 19 6 - 55 U/L 11/21/2024 1:[address] [facility] ALKALINE PHOSPHATASE 71 40 - 150 U/L 11/21/2024 1:[address] [facility] IS THE PATIENT REQUIRED TO BE FASTING? No 11/21/2024 1:[address] [facility] GFR, ESTIMATED >60 >=60 11/21/2024 1:[address] [facility] Comment: Creatinine Clearance is the preferred criteria for selecting drug dose adjustments in renally impaired patients. The GFR is provided as additional pertinent clinical information. GFR is reported in mL/min/1.73 sq m. Calculation based on the Chronic Kidney Disease Epidemiology Collaboration (CKD- EPI) equation refit without adjustment for race. GFR, EST. >60 >=60 025 1:[address] [facility] GFR, EST. NONAFRICAN >60 >=60 11/21/2024 1:[address] [facility] Blood Venipuncture / Unknown 11/21/2024 11:35 AM LATEX SPOOLER 11/21/2024 1:17 PM LATEX SPOOLER Tina Summersfeli PAC CHEMISTRY ORDERABLES Fin al Result [facility] [address] [place] [address] * REKHA SCREENING BILATERAL DIGITAL W CAD (05/28/2024 12:00 AM CDT) Anatomical Region Laterality Modality breast Bilateral Mammography 05/28/2024 Claudia Fritcher PAC IMG MAMMO ORDERABLES Fin al Result * HM COLONOSCOPY (06/14/2019) Gerry Gilbert DO PROCEDURE/MINOR SURGICAL ORDERA BLES Final Result * PATHOLOGY CYTOLOGY JAVA SOFTWARE DEVELOPER (12/25/2018) Specimen of unknown material (specimen) Rukhsana Guzman MD PATHOLOGY/CYTOLOGY ORDERABLES F inal Result * HEPATITIS C ANTIBODY (11/07/2018) Blood specimen (specimen) Nathaly Kay MD CHEMISTRY ORDERABLES Final Res ult from Last 3 Months or Most Recently Relevant to [place] [address] [place] [address] MEDICARE C ESSENCE Care Teams Pediatric Neurologist Relationship Specialty Start Date End Date Tina Gallagher PAC [address] [place] [address] PCP - General Physician Bead Preparer 01/01/19 Shanell Diana, SENIOR INSTRUCTOR, SUSTAINABILITY PROJECT MANAGER Certified Nurse Practitioner 09/06/16 Rukhsana Guzman MD [address] [place] [address] Obstetrics & Gynecology 01/11/19
--- OUTSIDE RECORDS SUMMARY | 2025-02-04 06:51 | XMS_ITS | Encounter Summary ---
Author Organization [facility] Address [address] [place] [address] Phone Care Team Providers Care College Associate Name Role Phone Shanell Diana APRN, DRY CLIPPER TENDER Unavailable [phone] Tina Gallagher Primary Care Provider + Rukhsana Guzman MD Unavailable [phone] Reason for Visit * Reason Comments Medication Refill Encounter Details Date Type Department Care Team (Late st Contact Info) Description 09/02/2023 Refill [facility] [address] [place] [address] Erinn Diaz MD [address] [place] [address] Medication Refill Social History Tobacco Use Types Packs/Day Years Used Date Smoking Tobacco: Former Cigarettes Q uit: 07/21/2014 Smokeless Tobacco: Never Alcohol Use Standard Drinks/Week Comments Yes 0 (1 standard drink = 0.6 oz pur e alcohol) RARELY PHQ-2 Answer Date Recorded Total Score - Questions 1-9 0 04/2023 Education Answer Date Recorded What is the [...] Telephone Encounter - Hermila Mistry RN - 09/02/2023 1:47 PM CDT Images from the original note were not included. DULoxetine HCl Dispensed Days Supply Quantity Provider Pharmacy DULOXETINE DR [facility] 08/31/2023 30 30 Each Erinn Diaz MD [facility] #... [facility]ULOX[address]INE [address] [facility] 08/06/2023 30 30 Each Erinn Diaz MD [facility] #... [facility]ULOXETINE [address] [facility] 07/10/2023 30 30 Each Erinn Diaz MD [facility] #... DULOXETINE [address] [facility] 06/13/2023 30 30 Each Erinn Diaz MD [facility] #... documented in this encounter Plan of Treatment Upcoming Encounters Date Type Department Care Team (Late st Contact Info) Description 02/21/2025 2:00 PM CDT Office Visit [facility] [address] [place] [address] Tina Gallagher PAC [address] [place] [address] documented as of this encounter Visit Diagnoses Not on filedocumented in this encounter Additional Health Concerns Assessment Noted Time PHQ-9 Depression Total Score: 0 10/14/20 22 1:00 PM ATTORNEY LAW CLERK documented as of this encounter Care Teams College Associate Relationship Specialty Start Date End Date Tina Gallagher PAC [address] [place] [address] PCP - General Physician Head Of Visual Merchandising 01/01/19 Shanell Diana, INDUCTION BRAZER, DRY CLIPPER TENDER Certified Nurse Practitioner 09/06/16 Rukhsana Guzman MD [address] [place] [address] Obstetrics & Gynecology 01/11/19 documented as of this encounter
--- OUTSIDE RECORDS SUMMARY | 2025-02-04 06:51 | XMS_ITS | Patient Health Record ---
Author Organization [facility] Address [address] [place] [address] Care Team Providers Care Automatic Buffer Name Role Phone Kobi Misael Unavailable [phone] Reason For Referral No Information Plan Of Treatment No Information
--- OUTSIDE RECORDS SUMMARY | 2025-02-04 06:51 | XMS_ITS ---
Author Organization [facility] Address [address] [place] [address] Care Team Providers Care Window Trimmer Name Role Phone Misael Peace Unavailable [phone] REASON FOR VISIT SPOOL MAKER Weight Loss Encounters Encounter Location Date Provider Diagnosis [facility] [place] ([address]) [address] [address] 07/26/2024 Misael Peace Plan Of Treatment No Information Progress Notes * Ciarra RAINEYDOB:1955 (69 yo F)Acc No.[id number]:07/26/2024 SPOOL MAKER Weight Loss Patient: Ciarra DOW Provider: Ranjana Peace MD :1955 A ge:68 Y S ex:Female Date:07/26/2024 Address: [address] [id number] Subjective: * Chief Complaints: * 1 . SPOOL MAKER Weight Loss. * Medical History: Objective: * Vitals: Assessment: Plan: * Treatment: * Billing Information: * Visit Code: * Procedure Codes: * Electronic signature of Godfrey Peace MD, FAAAAI on 02/04/2025 at 06:51 AM CDT Sign off status: Pending * Provider: Ranjana Peace MD Date: 0 07/26/2024 Generated for Herbi ng/Eliel/eTransmitting on: 02/04/2025 06:51 AM CDT
[2025-02-04 07:49] LABS: Basophils Percent Auto 0.5 % (0.2-1.2); Eosinophils Absolute Auto 0.2 K/mm3 (0-0.3); Eosinophils Percent Auto 3.8 % (0-4.4); Hematocrit 42.5 % (37.0-47.0); Hemoglobin 13.7 g/dL (12.0-15.0); Immature Granulocyte Absolute 0.02 K/mm3 (0.00-0.031); Immature Granulocyte Percent A 0.5 % (0-0.5); Lymphocytes Absolute Auto 0.89 K/mm3 (0.9-3.2); Lymphocytes Percent Auto 22.8 % (18.3-44.2); Mean Corpuscular HGB Conc 32.2 g/dl (32-36); Mean Corpuscular Hemoglobin 32.9 pg (26-34); Mean Corpuscular Volume 101.9 fl (80-100); Mean Platelet Volume 11.5 fl (7.4-10.4); Monocytes Absolute Auto 0.3 K/mm3 (0.1-0.6); Monocytes Percent Auto 8.7 % (2.6-8.5); Neutrophils Absolute Auto 2.5 K/mm3 (1.3-6.7); Neutrophils Percent Auto 63.7 % (45.5-73.1); Platelet Count Result 259 k/mm3 (150-375); Red Blood Count 4.17 M/mm3 (4.2-5.4); Red Cell Distribution Width 13.2 % (11.5-14.5); White Blood Count 3.9 K/mm3 (4.5-10.0)
[2025-02-04 07:50] LABS: Add Urine Microscopic? NO; Appearance Urine Clear (Clear); Bilirubin Urine Negative (Negative); Blood Urine Negative (Negative); Color Urine Yellow (Yellow); Glucose Urine UA Negative (Negative); Ketones Urine Negative (Negative); Leukocyte Esterase Ur Negative LEU/UL (Negative); Nitrate Urine Negative (Negative); Protein Urine Negative (Negative); Specific Grav Ur 1.011 (1.001-1.035); Urobilinogen Urine 0.2 mg/dL (<2.0)
[2025-02-04 08:43] LABS: Erythrocyte Sedimentation Rate 26 mm/hr (0-20)
[2025-02-04 11:02] LABS: Alanine Aminotransferase 19 U/L (6-35); Albumin Level 4.3 g/dL (3.5-5.1); Alkaline Phosphatase 77 U/L (38-126); Anion Gap 8 mmol/L (4-12); Aspartate Amino Transferase 23 U/L (14-36); Bilirubin,Total 0.5 mg/dL (0.2-1.3); Blood Urea Nitrogen 17 mg/dL (7-17); CRP 1.9 mg/dL (<1.0); Calcium 9.4 mg/dL (8.4-10.2); Carbon Dioxide 28 mmol/L (22-30); Chloride 103 mmol/L (98-107); Estimated Glomerular Filt Rate > 60; Glucose 103 mg/dL (65-110); Phosphorus 3.4 mg/dL (2.5-4.5); Potassium 4.6 mmol/L (3.4-5.0); Sodium 139 mmol/L (137-145)
[2025-02-04 12:50] LABS: Hepatitis B Surface Antigen Negative (Negative)
[2025-02-04 13:08] LABS: Hepatitis B Surface Anti Res Negative; Hepatitis C Virus Antibody Negative (Negative)
[2025-02-06 19:12] LABS: NIL 0.02 IU/mL; Quantiferon TB Plus, 1T NEGATIVE (NEGATIVE)
== END 2025-02-04 06:46 | disposition home or self-care (01) ==
PROVIDERS: PCP Physician Assistant; Visit Provider Internal Medicine
DX: M06.9 Rheumatoid arthritis, unspecified (principal); Z79.899 Other long term (current) drug therapy
CPT/HCPCS: 36415; 80053; 81003; 84100; 85025; 85652; 86140; 86480; 86706; 86803; 87340

== ENCOUNTER 2025-03-28 06:45 | Outpatient (CLI) | payer OTHER, SELFPAY ==
--- OUTSIDE RECORDS SUMMARY | 2025-03-28 06:48 | XMS_ITS | Clinical Summary ---
Author Organization [facility] Address [address] [place] [address] Phone Care Team Providers Care Health Commissioner Name Role Phone Shanell Diana APRN, MANAGER EDUCATION Unavailable [phone] Tina Gallagher Primary Care Provider + Rukhsana Guzman MD Unavailable [phone] Allergies Active Allergy Reactions Criticality Noted Date Comments Tramadol Nausea 07/06/2019 Medications hydroxychloroquine (PLAQUENIL) 200 MG Tablet Take 2 Tablets by mouth daily. 1 Active Rinvoq 15 MG TABLET SR 24 HR 3 Active omeprazole (PriLOSEC) 40 MG CAPSULE DELAYED RELEASE TAKE 1 CAPSULE BY MOUTH EVERY MORNING 90 Capsule 1 4 Active DULoxetine (CYMBALTA) [address] Particles Take 1 Capsule by mouth daily. 90 Capsule 1 4 Active tiZANidine (ZANAFLEX) 2 MG Tablet Take 1 Tablet by mouth 3 times daily as needed for Muscle spasms. 30 Tablet 5 Active HYDROcodone-acetam inophen (NORCO) 5-325 [...] needed for Severe pain. 12 Tablet 5 03/12/20 25 Discontin ued(Dupli octavia Therapy) Active Problems Problem Noted Date Diagnosed Date PMR (polymyalgia rheumatica) 02/21/2025 Migraine headache Vitamin D deficiency Osteopenia Obesity Overview (09/16/2015): BMI 31 Hemorrhoids Genital atrophy of female Dyspareunia Encounters Date Type Department Care Team Description 02/21/2025 2:00 PM CDT Office Visit [facility] [address] [place] [address] Tina Gallagher PAC PMR (polymyalgia rheumatica) ([facility]) (Primary Dx); High risk medication use Discharge Disposition: Discharged to home or Selfcare 02/19/2025 Travel 02/11/2025 MyChart RX Renewal [facility] [address] [place] [address] Tina Gallagher PAC Medication Renewal Reviewed 01/07/2025 MyChart RX Renewal [facility] [address] [place] [address] Tina Gallagher PAC Medication Renewal Reviewed 01/01/2025 Travel from Last 3 Months Immunizations Immunization Administration Dates Next Due Covid-19, Mrna, Lnp-s, Pf, 30 Mcg/0.3 Ml Dose (P fizer) 11/10/2020,10/20/2020 Influenza Vaccine 08/10/2024,08/04/2018 Influenza Vaccine greater [...] = 0.6 oz pur e alcohol) RARELY [facility] Utilities Answer Date Recorded In the past 12 months has [employer], gas, oil, or water Donuts threatened to shut off services in your home? No 02/19/2025 Social Connection and Isolation Panel [NHANES] A nswer Date Recorded In a typical week, how many times do you talk on the phone with family, friends, or neighbors? Twice a week 02/19/2025 How often do you get together with friends or re latives? Once a week 02/19/2025 How often do you attend latter day or spiritism serv ices? Never 02/19/2025 Do you belong to any clubs o r organizations such as latter day groups, unions, fraternal or athletic groups, or school groups? No 02/19/2025 How often do you attend meet ings of the clubs or organizations you belong to? Never 02/19/2025 Are you , , di vorced, , never , or living with a partner? Never 02/19/2025 AUDIT-C Answer Date Recorded Q1: How often do you have a drink containing alc ohol? Monthly or less 02/19/2025 Q2: How many drinks containi ng alcohol do you have on a typical day when you are drinking? 1 or 2 02/19/2025 Q3: How often do you have si x or more drinks on one occasion? Never 02/19/2025 Overall Financial Resource Strain (CARDIA) Answe r Date Recorded How hard is it for you to pa y for the very basics like food, housing, medical care, and heating? Not very hard 02/19/2025 PHQ-2 Answer Date Recorded Total Score - Questions 1-9 0 11/01 [facility] of Occupat ional Health - Occupational Stress Questionnaire Answer Date Recorded Do you feel stress - tense, restless, nervous, or anxious, or unable to sleep at night because your mind is troubled all the time - these days? Only a little 02/19/2025 Exercise Vital Sign Answer Date Recorde d On average, how many days pe r week do you engage in moderate to strenuous exercise (like a brisk walk)? 2 days 02/19/2025 On average, how many minutes do you engage in exercise at this level? 20 min 02/19/2025 Hunger Vital Sign Answer Date Recorded Within the past 12 months, y ou worried that your food would run out before you got the money to buy more. Never true 02/20/20 25 Within the past 12 months, t he food you bought just didn't last and you didn't have money to get more. Never true 02/19/2025 PRAPARE - Transportation Answer Date Re corded In the past 12 months, has l ack of transportation kept you from medical appointments or from getting medications? No 01/30 In the past 12 months, has l ack of transportation kept you from meetings, work, or from getting things needed for daily living? No 02/19/2025 Housing Stability Vital Sign Answer Kyle e [...] place to sleep or slept in a retirement (including now)? No 03/06/2024 Housing Stability Vital Sign Answer Kyle e Recorded In the last 12 months, was t here a time when you were not able to pay the mortgage or rent on time? No 02/19/2025 In the past 12 months, how m any times have you moved where you were living? 0 02/19/2025 At any time in the past 12 m [facility], were you homeless or living in a retirement (including now)? No 02/19/2025 Education Answer Date Recorded What is the [...] Sign Reading Time Taken Comments Blood Pressure 128/82 02/21/2025 1:37 PM CDT Pulse 79 02/21/2025 1:37 PM CDT Temperature 36.6 C (97.8 F) 02/21/2025 1:37 PM CDT Respiratory Rate 16 12/27/2024 2:45 PM SPACE ENGINEER Oxygen Saturation 98% 02/21/2025 1:37 PM CDT Inhaled Oxygen Concentration - - Weight 93 kg (205 lb) 02/21/2025 1:37 PM CDT Height 160 cm (5' 3) 02/21/2025 1:37 PM CDT Body Mass Index 36.31 02/21/2025 1:37 PM CDT Plan of Treatment Upcoming Encounters Date Type Department Care Team (Late st Contact Info) Description 07/05/2025 8:45 AM CDT [facility] Visit [facility] [address] [place] [address] Tina Gallagher, [facility] [address] [place] [address] Health Maintenance Due Date Last Done Comments [...] 11/10/2020, Additional history exists Mammogram 05/28/2025 05/28/2024, 040 02/2023, 05/28/2021, Additional history exists DEXA Bone Density 08/10/2025 08/10/2023 Colonoscopy 06/14/2027 06/14/2019, 06/25/2011 Colorectal Cancer Screening 06/14/2027 06/14/2019, 06/25/2011 Hepatitis C Virus (HCV) Screening Completed 11/07/2018 Cervical Cancer Screening (CCS) Discontinued Pap Smear Discontinued 12/25/2018, 0 03/2016, 01/14/2015, Additional history exists Zoster Immunization Completed 01/23/2022, Influenza Immunization Completed , 07/10/2024, 08/19/2023, Additional history exists HPV/Cotest Discontinued Human Papillomavirus (HPV) Immunization Aged Out No longer eligible based on patient's age to complete this topic Meningococcal Immunization (ACWY) Aged Out No longer eligible based on patient's age to complete this topic Rotavirus Immunization Aged Out No lo nger eligible based on patient's age to complete this topic Procedures Procedure Name Priority Date/Time Associated Diagnosis Comments EXTERNAL RHEUMATOLOGY REFERRAL Less Than 4 weeks 01/29/2025 12:00 AM CDT PMR (polymyalgia rheumatica) (HCC) REKHA SCREENING BILATERAL DIGITAL W CAD Routine 05/28/2024 12:00 AM CDT Screening mammogram for breast cancer HM COLONOSCOPY Routine 06/14/2019 PATHOLOGY CYTOLOGY LAMP WIRER Routine 12/25/2018 HEPATITIS C ANTIBODY Routine 11/07/2018 from Last 3 Months or Most Recently Relevant to Health Maintenance Results * EXTERNAL RHEUMATOLOGY REFERRAL (01/29/2025 12:00 AM CDT) 01/29/2025 us Tina Gallagher PAC OUTPT REFERRALS EXT/INT Final Result SCAN * REKHA SCREENING BILATERAL DIGITAL W CAD (05/28/2024 12:00 AM CDT) Anatomical Region Laterality Modality breast Bilateral Mammography 05/28/2024 Tina Gallagher PAC IMG MAMMO ORDERABLES Fin al Result * HM COLONOSCOPY (06/14/2019) Gerry Gilbert DO PROCEDURE/MINOR SURGICAL ORDERA BLES Final Result * PATHOLOGY CYTOLOGY LAMP WIRER (12/25/2018) Specimen of unknown material (specimen) Rukhsana Guzman MD PATHOLOGY/CYTOLOGY ORDERABLES F inal Result * HEPATITIS C ANTIBODY (11/07/2018) Blood specimen (specimen) Nathaly Kay MD CHEMISTRY ORDERABLES Final Res ult from Last 3 Months or Most Recently Relevant to [place] [address] MEDICARE C ESSENCE Care Teams Health Commissioner Relationship Specialty Start Date End Date Tina Gallagher PAC [address] [place] [address] PCP - General Physician Puppet Master 01/01/19 Shanell Diana, TYPING TEACHER, MANAGER EDUCATION Certified Nurse Practitioner 09/06/16 Rukhsana Guzman MD [address] [place] [address] Obstetrics & Gynecology 01/11/19
--- OUTSIDE RECORDS SUMMARY | 2025-03-28 06:48 | XMS_ITS ---
Author Organization [facility] [place] ([address]) Address [address] [place] [address] Care Team Providers Care Insulation Worker Furnace Installer Name Role Phone Kobi Misael Arango [phone] REASON FOR VISIT New Pt-Weight Loss Encounters Encounter Location Date [facility] [address] [place] [address] 09/06/2024 Misael Peace Plan Of Treatment No Information Progress Notes * Ciarra RAINEYDOB:1955 (69 yo F)Acc No.[id number]:09/06/2024 SUPERVISOR PUMPING STATION Weight Loss Patient: Ciarra DOW Provider: Ranjana Peace MD :1955 A ge:68 Y S ex:Female Date:09/06/2024 [facility] [address] [facility] Subjective: * Chief Complaints: * 1 . New Pt-Weight Loss. * Medical History: Objective: * Vitals: Assessment: Plan: * Treatment: * Billing Information: * Visit Code: * Procedure Codes: * Electronic signature of Godfrey Peace MD, FAAAAI on 03/28/2025 at 06:48 AM CDT Sign off status: Pending * Provider: Ranjana Peace MD Date: 11/06/2023 Generated for Herbi ng/Faurvashig/eTransmitting on: 0 03/28/2025 06:48 AM CDT
--- OUTSIDE RECORDS SUMMARY | 2025-03-28 06:49 | XMS_ITS | Encounter Summary ---
Author Organization [facility] Address [address] [place] [address] Phone Care Team Providers Care Window Tinter Name Role Phone Shanell Diana APRN, INDEPENDENT DRIVER Unavailable [phone] Tina aGllagher Primary Care Provider + Rukhsana Guzman MD Unavailable [phone] Reason for Visit * Reason Comments Medication Refill Encounter Details Date Type Department Care Team (Late st Contact Info) Description 04/19/2024 Refill [facility] - Family Medicine [facility] [address] [place] [address] Leanna Rascon APRN, INDEPENDENT DRIVER [address] [address] Medication Refill Social History Tobacco Use Types Packs/Day Years Used Date Smoking Tobacco: Former Cigarettes Q uit: 07/21/2014 Smokeless Tobacco: Never Alcohol Use Standard Drinks/Week Comments Yes 0 (1 standard drink = 0.6 oz pur e alcohol) RARELY [facility] Utilities Answer Date Recorded In the past [...] often do you attend chur ch or sabianism services? Never 03/06/2024 Do you belong to any clubs o r organizations such as judaism groups, unions, fraternal or athletic groups, or [...] Total Score - Questions 1-9 0 07/2024 [facility] of Occupat ional Health - Occupational [...] place to sleep or slept in a jail (including now)? No 03/06/2024 Education Answer Date [...] CDT Office Visit [facility] [address] [place] [address] Tina Gallagher PAC [address] [place] [address] documented as of this encounter Visit Diagnoses Not on filedocumented in this encounter Additional Health Concerns Assessment Noted Time PHQ-9 Depression Total Score: 0 03/08/20 24 3:14 PM CDT documented as of this encounter Care Teams Window Tinter Relationship Specialty Start Date End Date Tina Gallagher PAC [address] [place] [address] PCP - General Physician Licensing Specialist 01/01/19 Shanell Diana, TANK REFINISHER, INDEPENDENT DRIVER Certified Nurse Practitioner 09/06/16 Rukhsana Guzman MD [address] [place] [address] Obstetrics & Gynecology 01/11/19 documented as of this encounter
--- OUTSIDE RECORDS SUMMARY | 2025-03-28 06:49 | XMS_ITS | Encounter Summary ---
Author Organization [facility] Address [address] [place] [address] Phone Care Team Providers Care Thermo Processor Name Role Phone Shanell Diana APRN, DIAL MAKER Unavailable [phone] Tina Gallagher Primary Care Provider + Rukhsana Guzman MD Unavailable [phone] Reason for Visit * Reason Comments Medication Refill Encounter Details Date Type Department Care Team (Late st Contact Info) Description 09/02/2023 Refill [facility] #[address] [place] [address] Erinn Diaz MD [address] [place] [address] Medication Refill Social History Tobacco Use Types [...] Description 07/05/2025 8:45 AM CDT Office Visit [facility] #[address] [place] [address] Tina Gallagher PAC [address] [place] [address] documented as of this encounter Visit Diagnoses Not on filedocumented in this encounter Additional Health Concerns Assessment Noted Time PHQ-9 Depression Total Score: 0 10/14/20 22 1:00 PM SAND TECHNOLOGIST documented as of this encounter Care Teams Thermo Processor Relationship Specialty Start Date End Date Tina Gallagher PAC [address] [place] [address] PCP - General Physician Eligibility Manager 01/01/19 Shanell Diana, SAMPLING EXPERT, DIAL MAKER Certified Nurse Practitioner 09/06/16 Rukhsana Guzman MD [address] [place] [address] Obstetrics & Gynecology 01/11/19 documented as of this encounter
--- OUTSIDE RECORDS SUMMARY | 2025-03-28 06:49 | XMS_ITS | Patient Health Record ---
Author Organization [facility] [place] ([address]) Address [address] [facility] [address] [place] [address] Care Team Providers Care Backend Python Developer Name Role Phone Kobi Misael Unavailable [phone] Reason For Referral No Information Plan Of Treatment No Information
--- OUTSIDE RECORDS SUMMARY | 2025-03-28 06:49 | XMS_ITS | Encounter Summary ---
Author Organization [facility] Address [address] [place] [address] Care Team Providers Care Bordereau Clerk Name Role Phone Unavailable Primary Care Provider Unavailabl e Encounter Details Date Type Department Care Team (Late st Contact Info) Description 12/10/2024 Abstract [facility] Operating Room [address] [address] [address] [address] Satya Shaikh MD [address] [place] [id number] Social History Tobacco Use Types Packs/Day Years [...] on file Legal Sex Female 10:20 AM PERSONAL LINES AGENT Gender Identity Not on file Sexual Orientation Not on file documented as of this encounter Plan of Treatment Not on file documented as of this encounter Visit Diagnoses Not on filedocumented in this encounter
--- OUTSIDE RECORDS SUMMARY | 2025-03-28 06:49 | XMS_ITS | Encounter Summary ---
Author Organization [facility] Address [address] [place] [address] Phone Care Team Providers Care Medical Center Representative Name Role Phone Shanell Diana APRN, SURGICAL SERVICES TECH Unavailable [phone] Tina Gallagher Primary Care Provider + Rukhsana Guzman MD Unavailable [phone] Reason for Visit * Reason Comments Medication Refill Encounter Details Date Type Department Care Team (Late st Contact Info) Description 09/30/2022 Refill [facility] #[address] [place] [address] Tina Gallagher PAC [address] [place] [address] Medication Refill Social History Tobacco Use Types [...] tabs +1 #60 = 15 day supply MECHANIC documented in this encounter Plan of Treatment Upcoming Encounters Date Type Department Care Team (Late st Contact Info) Description 07/05/2025 8:45 AM CDT Office Visit [facility] [address] [place] [address] Tina Gallagher PAC [address] [place] [address] documented as of this encounter Visit Diagnoses Not on filedocumented in this encounter Additional Health Concerns Assessment Noted Time PHQ-9 Depression Total Score: 0 05/07/20 21 8:00 AM CDT documented as of this encounter Care Teams Medical Center Representative Relationship Specialty Start Date End Date Tina Gallagher PAC [address] [place] [address] PCP - General Physician Floatlight Loading Supervisor 01/01/19 Shanell Diana, WAGE AND SALARY ADMINISTRATOR, SURGICAL SERVICES TECH Certified Nurse Practitioner 09/06/16 Rukhsana Guzman MD [address] [place] [address] Obstetrics & Gynecology 01/11/19 documented as of this encounter
--- OUTSIDE RECORDS SUMMARY | 2025-03-28 06:49 | XMS_ITS | Clinical Summary ---
Author Organization [facility] Address [address] [facility] [address] [address] Phone Care Team Providers Care Soft Work Wrapper Layer And Examiner Name Role Phone Unavailable Primary Care Provider [...] 60 mL 300 mL 12/25/2024 3:48 PM TURNTABLE OPERATOR 12/24/2024 Active ondansetron (ZOFRAN ODT) 4 mg [...] Encounters Date Type Department Care Team Description 03/21/2025 External Device Data STL ABSTRACTION Provider, Abstract 03/21/2025 External Device Data STL ABSTRACTION Provider, Abstract 03/05/2025 External Device Data STL ABSTRACTION Provider, Abstract 03/05/2025 External Device Data STL ABSTRACTION Provider, Abstract 03/05/2025 External Device Data STL ABSTRACTION Provider, Abstract 02/12/2025 External Device Data STL ABSTRACTION Provider, Abstract 01/29/2025 External Device Data STL ABSTRACTION Provider, Abstract 01/29/2025 External Device Data STL ABSTRACTION Provider, Abstract 01/29/2025 External Device Data STL ABSTRACTION Provider, Abstract from Last 3 Months Social History Tobacco Use Types Packs/Day Years Used Date Smoking Tobacco: Former Cigarettes Q uit: 2004 Tobacco Cessation:Counseling Given: Not Answered Alcohol Use Standard Drinks/Week Comments Not Currently 0 (1 standard drink = 0.6 oz pur e alcohol) Feeling Safe Answer Date Recorded Are you in a relationship wi th someone who hurts you emotionally and/or physically? No 12/24/2024 Food Insecurity Answer Date Recorded Patient needs follow up regardin 02/21/2025 Transportation Needs Answer Date Record ed Patient needs follow up regardin 02/21/2025 Housing Stability Answer Date Recorded Social/Environmental Concerns No concerns Utility Needs Answer Date Recorded Patient needs follow up regardin 02/21/2025 Comments No Sex and Gender Information Value Date Recorded Sex Assigned at Not on file Legal Sex Female 10:20 AM TURNTABLE OPERATOR Gender Identity Not on file Sexual Orientation Not on file Last Filed Vital Signs Vital Sign Reading Time Taken Comments Blood Pressure 134/59 12/25/2024 12:16 PM TURNTABLE OPERATOR Pulse 74 12/25/2024 12:00 PM TURNTABLE OPERATOR Temperature 36.7 C (98.1 F) 12/25/2024 7:23 AM TURNTABLE OPERATOR Respiratory Rate 18 12/25/2024 12:00 PM TURNTABLE OPERATOR Oxygen Saturation 98% 12/25/2024 12:00 PM TURNTABLE OPERATOR Inhaled Oxygen Concentration - - Weight 95.8 kg (211 lb 3.2 oz) 12/24/2024 5:37 P M TURNTABLE OPERATOR Height 157.5 cm (5' 2) 12/24/2024 5:37 PM TURNTABLE OPERATOR Body Mass Index 38.63 12/24/2024 5:37 PM TURNTABLE OPERATOR Plan of Treatment Health Maintenance Due Date [...] - 2023-2 5 season) 2024 11/10/2020, 10/20/2020 BREAST CANCER SCREENING 05/28/2025 05/28/20, 05/28/2024, 05/28/2021 Pre-Diabetes and Diabetes Screening 12/25/2027 12/25/2024 COLORECTAL SCREENING 06/14/2029 06/14/2019 Colorectal Cancer Screening 06/14/2029 ZOSTER VACCINE Completed 01/23/2022, 11/21/2021 INFLUENZA VACCINE Completed 08/10/2024, , 08/19/2023, Additional history exists Medical Devices Implanted Type Area Dip Brazier Device Identifier Shelf Expiration Date Model / Serial / Lot Seamguard Endopath 60 [id number] - [id number] Implanted:Qt y: 1 on 12/24/2024 by Satya Shaikh MD at [facility] Biological N/A: Stomach [employer] [id number] 07/29/2027 [id number] / / [id number] Seamguard Endopath 60 [id number] - [id number] Implanted:Qt y: 1 on 12/24/2024 by Satya Shaikh MD at [facility] [employer] N/A: Stomach [employer] [id number] 07/29/2027 [id number] / / [id number] Seamguard Endopath 60 [id number] - [id number] Implanted:Qt y: 1 on 12/24/2024 by Satya Shaikh MD at [facility] Biological N/A: Stomach [employer] [id number] 07/29/2027 [id number] / / [id number] Seamguard Endopath 60 [id number] - [id number] Implanted:Qt y: 1 on 12/24/2024 by Satya Shaikh MD at [facility] Biological N/A: Stomach [employer] [id number] 07/29/2027 [id number] [id number] / / [id number] Lime Puller Ligamax Endo Multi Clip 5mm El5ml - [id number] Implanted:Qt y: 1 on 12/24/2024 by Satya Shaikh MD at [facility] Clip N/A: Stomach [employer] [id number] 08/30/2029 [id number] / / [id number] Knee Foot Lens Procedures Procedure Name Priority Date/Time Associated Diagnosis Comments HEMOGLOBIN A1C Routine 12/25/2024 5:45 AM TURNTABLE OPERATOR from Last 3 Months or Most Recently Relevant to Health Maintenance Results * HEMOGLOBIN A1C (12/25/2024 5:45 AM TURNTABLE OPERATOR) HEMOGLOBIN A1C 4.8 <=5.6 % 12/25/2024 7:19 AM TURNTABLE OPERATOR [facility] EST. AVG GLUCOSE, A1C 91 mg/dL 12/25/2024 7:19 AM [facility] Blood Venipuncture / Unknown 12/25/2024 5:45 AM TURNTABLE OPERATOR 12/25/2024 6:32 AM TURNTABLE OPERATOR Narrative [facility] - 12/25/2024 7:19 AM TURNTABLE OPERATOR HGB A1C INTERPRETATION NORMAL: <5.7% PRE-DIABETES: 5.7 - 6.4% DIABETES: 6.5% OR GREATER us Satya Shaikh MD CHEMISTRY ORDERABLES Final Resul t [facility] CLIA # [id number] [address] [place] [id number] from Last 3 Months or Most Recently Relevant to Health Maintenance Insurance [employer] Medicare Part D Advance Directives For more information, please contact: [phone] * Full Code (Latest Code Status on File) Date Activated Date Inactivated Comments 12/24/2024 12:45 PM 12/25/2024 6:15 PM * Full Code Date Activated Date Inactivated Comments 12/24/2024 11:13 AM 12/24/2024 12:45 PM
--- OUTSIDE RECORDS SUMMARY | 2025-03-28 06:49 | XMS_ITS | Encounter Summary ---
Author Organization [facility] Address [address] [place] [address] Phone Care Team Providers Care Furniture Refinisher Name Role Phone Shanell Diana APRN, PHARMACY SALESPERSON Unavailable [phone] Tina Gallagher Primary Care Provider + Rukhsana Guzman MD Unavailable [phone] Reason for Visit * Reason Comments Medication Refill Encounter Details Date Type Department Care Team (Late st Contact Info) Description 04/14/2023 Refill [facility] [address] [place] [address] Tina Gallagher PAC [address] [place] [address] Medication Refill Social History Tobacco Use Types [...] 10/14/22 Office Visit Tina Gallagher PAC [facility] Showing recent visits within past 182 days and meeting all other requirements Future Appointments Date Type Provider Dept 06/02/23 Appointment Tina Gallagher PAC [facility] Showing future appointments within next 90 days and meeting all other requirements documented in this encounter Plan of Treatment Upcoming Encounters Date Type Department Care Team (Late st Contact Info) Description 07/05/2025 8:45 AM CDT Office Visit [facility] - [place] [address] [place] [address] Tina Gallagher PAC [address] [place] [address] documented as of this encounter Visit Diagnoses Not on filedocumented in this encounter Additional Health Concerns Assessment Noted Time PHQ-9 Depression Total Score: 0 10/14/20 22 1:00 PM TOOL CRIB SUPERVISOR documented as of this encounter Care Teams Furniture Refinisher Relationship Specialty Start Date End Date Tina Gallagher PAC [address] [place] [address] PCP - General Physician Laborer [facility] 01/01/19 Shanell Diana, OFFICE MACHINE PUNCH OPERATOR, PHARMACY SALESPERSON Certified Nurse Practitioner 09/06/16 Rukhsana Guzman MD [address] [place] [address] Obstetrics & Gynecology 01/11/19 documented as of this encounter
--- OUTSIDE RECORDS SUMMARY | 2025-03-28 06:49 | XMS_ITS ---
Author Organization [facility] [employer] [employer] [place] ([address]) Address [address] [place] [phone] Care Team Providers Care Assistant Athletic Trainer Name Role Phone Misael Peace Unavailable [phone] REASON FOR VISIT LEARN TO SWIM INSTRUCTOR Weight Loss Encounters Encounter Location Date Provider Diagnosis [facility] ([address]) [address] [place] [id number] 07/26/2024 Misael Peace Plan Of Treatment No Information Progress Notes * Ciarra RAINEYDOB:1955 (69 yo F)Acc No.[id number]:07/26/2024 LEARN TO SWIM INSTRUCTOR Weight Loss Patient: Ciarra DOW Provider: Ranjana Peace MD :1955 A ge:68 Y S ex:Female Date:07/26/2024 [facility] [address] [id number] Subjective: * Chief Complaints: * 1 . LEARN TO SWIM INSTRUCTOR Weight Loss. * Medical History: Objective: * Vitals: Assessment: Plan: * Treatment: * Billing Information: * Visit Code: * Procedure Codes: * Electronic signature of Godfrey Peace MD, FAAAAI on 03/28/2025 at 06:48 AM CDT Sign off status: Pending * Provider: Ranjana Peace MD Date: 07/26/2024 Generated for Herbi ng/Eliel/eTransmitting on: 03/28/2025 06:48 AM CDT
[2025-03-28 07:51] LABS: Basophils Percent Auto 0.5 % (0.2-1.2); Eosinophils Absolute Auto 0.1 K/mm3 (0-0.3); Eosinophils Percent Auto 1.4 % (0-4.4); Hematocrit 41.8 % (37.0-47.0); Hemoglobin 13.7 g/dL (12.0-15.0); Immature Granulocyte Absolute 0.01 K/mm3 (0.00-0.031); Immature Granulocyte Percent A 0.2 % (0-0.5); Lymphocytes Absolute Auto 0.66 K/mm3 (0.9-3.2); Lymphocytes Percent Auto 15.9 % (18.3-44.2); Mean Corpuscular HGB Conc 32.8 g/dl (32-36); Mean Corpuscular Hemoglobin 32.6 pg (26-34); Mean Corpuscular Volume 99.5 fl (80-100); Mean Platelet Volume 11.3 fl (7.4-10.4); Monocytes Absolute Auto 0.5 K/mm3 (0.1-0.6); Monocytes Percent Auto 11.5 % (2.6-8.5); Neutrophils Absolute Auto 2.9 K/mm3 (1.3-6.7); Neutrophils Percent Auto 70.5 % (45.5-73.1); Platelet Count Result 223 k/mm3 (150-375); Red Cell Distribution Width 13.5 % (11.5-14.5); White Blood Count 4.2 K/mm3 (4.5-10.0)
[2025-03-28 08:06] LABS: Alanine Aminotransferase 25 U/L (6-35); Albumin Level 4.4 g/dL (3.5-5.1); Alkaline Phosphatase 64 U/L (38-126); Anion Gap 8 mmol/L (4-12); Aspartate Amino Transferase 33 U/L (14-36); Bilirubin Indirect 0.8 mg/dL (0-1.1); Bilirubin,Total 0.9 mg/dL (0.2-1.3); Blood Urea Nitrogen 22 mg/dL (7-17); CRP < 0.5 mg/dL (<1.0); Calcium 9.7 mg/dL (8.4-10.2); Carbon Dioxide 26 mmol/L (22-30); Chloride 105 mmol/L (98-107); Estimated Glomerular Filt Rate > 60; Glucose 99 mg/dL (65-110); Potassium 4.5 mmol/L (3.4-5.0); Sodium 139 mmol/L (137-145)
[2025-03-28 09:35] LABS: Erythrocyte Sedimentation Rate 14 mm/hr (0-20)
[2025-03-28 09:47] LABS: Add Urine Microscopic? YES; Appearance Urine Clear (Clear); Bacteria Urine None Seen /hpf; Bilirubin Urine Negative (Negative); Blood Urine Negative (Negative); Color Urine Dark Yellow (Yellow); Glucose Urine UA Negative (Negative); Ketones Urine Negative (Negative); Leukocyte Esterase Ur 1+ LEU/UL (Negative); Need Manual Microscopic Reviewed; Nitrate Urine Negative (Negative); Non Pathogenic Casts 0-2; Protein Urine Negative (Negative); RBC Urine 0-2 /hpf (0-2); Specific Grav Ur 1.016 (1.001-1.035); Squamous Epithelial Cell Urine None Seen /hpf (Few); Urobilinogen Urine 0.2 mg/dL (<2.0); WBC Urine 0-5 /hpf (0-3)
== END 2025-03-28 06:46 | disposition home or self-care (01) ==
LOC: ANHLAB 06:46
PROVIDERS: PCP Physician Assistant; Visit Provider Internal Medicine
DX: M06.09 Rheumatoid arthritis without rheumatoid factor, multiple sites (principal); Z79.899 Other long term (current) drug therapy
CPT/HCPCS: 36415; 80053; 81001; 82248; 85025; 85652; 86140

== ENCOUNTER 2025-06-20 06:45 | Outpatient (CLI) | payer OTHER, SELFPAY ==
--- OUTSIDE RECORDS SUMMARY | 2024-07-26 12:30 | XMS_ITS ---
Author Organization [facility] [employer] [facility] ([address]) Address [address] [place] [phone] Care Team Providers Care Cotton Stomper Name Role Phone Misael Peace Unavailable [phone] REASON FOR VISIT SIGNAL WORKER HELPER Weight Loss Encounters Encounter Location Date Provider Diagnosis [facility] ([address]) [address] [place] [phone] 07/26/2024 Misael Peace Plan Of Treatment No Information Progress Notes * Ciarra RAINEYDOB:1955 (69 yo F)Acc No.[id number]:07/26/2024 SIGNAL WORKER HELPER Weight Loss Patient: Ciarra DOW Provider: Ranjana Peace MD :1955 A ge:68 Y S ex:Female Date:07/26/2024 [facility] [address] [id number] Subjective: * Chief Complaints: * 1 . SIGNAL WORKER HELPER Weight Loss. * Medical History: Objective: * Vitals: Assessment: Plan: * Treatment: * Billing Information: * Visit Code: * Procedure Codes: * Electronic signature of Godfrey Peace MD, FAAAAI on 06/20/2025 at 06:50 AM CDT Sign off status: Pending * Provider: Ranjana Peace MD Date: 07/26/2024 Generated for Bree phna/Eliel/eTransmitting on: 06/20/2025 06:50 AM CDT
--- OUTSIDE RECORDS SUMMARY | 2024-09-06 12:30 | XMS_ITS ---
Author Organization [facility] [place] ([address]) Address [address] [place] [id number] Care Team Providers Care Tribunal Member Name Role Phone Kobi Misael Arango [phone] REASON FOR VISIT New Pt-Weight Loss Encounters Encounter Location Date Provider Diagnosis 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 New Pt-Weight Loss. * Medical History: Objective: * Vitals: Assessment: Plan: * Treatment: * Billing Information: * Visit Code: * Procedure Codes: * Electronic signature of Godfrey Peace MD, FAAAAI on 06/20/2025 at 06:49 AM CDT Sign off status: Pending * Provider: Ranjana Peace MD Date: 11/06/2023 Generated for Herbi ng/Faurvashig/eTransmitting on: 0 06/20/2025 06:49 AM CDT
--- OUTSIDE RECORDS SUMMARY | 2025-06-20 06:50 | XMS_ITS | Encounter Summary ---
Author Organization [facility] Address [address] [place] [address] Phone Care Team Providers Care Loss Prevention Coordinator Name Role Phone Shanell Diana APRN, SCHOOL JANITOR Unavailable [phone] Tina Gallagher Primary Care Provider + Rukhsana Guzman MD Unavailable [phone] Reason for Visit * Reason Comments Medication Refill Encounter Details Date Type Department Care Team (Late st Contact Info) Description 04/19/2024 Refill [facility] - Family Medicine [facility] [address] [place] [address] Leanna Rascon APRN, SCHOOL JANITOR [address] [address] Medication Refill Social History Tobacco Use Types Packs/Day Years Used Date Smoking Tobacco: Former Cigarettes Q uit: 07/21/2014 Smokeless Tobacco: Never Alcohol Use Standard Drinks/Week Comments Yes 0 (1 standard drink = 0.6 oz pur e alcohol) [facility] Utilities Answer Date Recorded In the past 12 months has e electric, gas, oil, or water company threatened to shut off services in your home? No 03/06/2024 Social Connection and Isolation Panel Answer Date Recorded In a typical week, how many times do you talk on the phone with family, friends, or neighbors? Three times a week 03/06/2024 How often do you get togethe r with friends or relatives? Once a week 03/06/2024 How often do you attend chur ch or zoroastrian services? Never 03/06/2024 Do you belong to any clubs o r organizations such as mormon groups, unions, fraternal or athletic groups, or [...] Total Score - Questions 1-9 0 07/2024 [facility] - [...] place to sleep or slept in a assisted (including now)? No 03/06/2024 Education Answer Date [...] Description 07/05/2025 8:45 AM CDT Office Visit [facility] - [facility] [address] [place] [address] Tina Gallagher PAC [address] [place] [address] documented as of this encounter Visit Diagnoses Not on filedocumented in this encounter Additional Health Concerns Assessment Noted Time PHQ-9 Depression Total Score: 0 03/08/20 24 3:14 PM CDT documented as of this encounter Care Teams Loss Prevention Coordinator Relationship Specialty Start Date End Date Tina Gallagher PAC [address] [place] [address] PCP - General Physician Glass Cut Off Supervisor 01/01/19 Shanell Diana, FELT CEMENTER, SCHOOL JANITOR Certified Nurse Practitioner 09/06/16 Rukhsana Guzman MD [address] [place] [address] Obstetrics & Gynecology 01/11/19 documented as of this encounter
--- OUTSIDE RECORDS SUMMARY | 2025-06-20 06:50 | XMS_ITS | Clinical Summary ---
Author Organization [facility] Address [address] [facility] [address] [address] Phone Care Team Providers Care Operations Manager/Coordinator Name Role Phone Unavailable Primary Care Provider [...] 60 mL 300 mL 12/25/2024 3:48 PM SUPPLIER SPECIALIST 12/24/2024 Active ondansetron (ZOFRAN ODT) 4 mg [...] Encounters Date Type Department Care Team Description 06/18/2025 External Device Data STL ABSTRACTION Provider, Abstract 06/11/2025 External Device Data STL ABSTRACTION Provider, Abstract 06/05/2025 External Device Data STL ABSTRACTION Provider, Abstract 05/15/2025 External Device Data STL ABSTRACTION Provider, Abstract 05/14/2025 External Device Data STL ABSTRACTION Provider, Abstract 04/16/2025 External Device Data STL ABSTRACTION Provider, Abstract 04/09/2025 External Device Data STL ABSTRACTION Provider, Abstract 04/02/2025 External Device Data STL ABSTRACTION Provider, Abstract [...] on file Legal Sex Female 10:20 AM SUPPLIER SPECIALIST Gender Identity Not on file Sexual Orientation Not on file Last Filed Vital Signs Vital Sign Reading Time Taken Comments Blood Pressure 134/59 12/25/2024 12:16 PM SUPPLIER SPECIALIST Pulse 74 12/25/2024 12:00 PM SUPPLIER SPECIALIST Temperature 36.7 C (98.1 F) 12/25/2024 7:23 AM SUPPLIER SPECIALIST Respiratory Rate 18 12/25/2024 12:00 PM SUPPLIER SPECIALIST Oxygen Saturation 98% 12/25/2024 12:00 PM SUPPLIER SPECIALIST Inhaled Oxygen Concentration - - Weight 95.8 kg (211 lb 3.2 oz) 12/24/2024 5:37 P M SUPPLIER SPECIALIST Height 157.5 cm (5' 2) 12/24/2024 5:37 PM SUPPLIER SPECIALIST Body Mass Index 38.63 12/24/2024 5:37 PM SUPPLIER SPECIALIST Plan of Treatment Health Maintenance Due Date [...] 2024 11/10/2020, 10/20/2020 BREAST CANCER SCREENING 05/28/2025 05/28/20 24, 05/28/2024, 05/28/2021 INFLUENZA VACCINE (#1) 2025 , 07/10/2024, 08/19/2023, Additional history exists Pre-Diabetes and Diabetes Screening 12/25/2027 12/25/2024 COLORECTAL SCREENING 06/14/2029 06/14/2019 Colorectal Cancer Screening 06/14/2029 ZOSTER VACCINE Completed 01/23/2022, 11/21/2021 Medical Devices Implanted Type Area Loom Tuner Device Identifier Shelf Expiration Date Model / Serial / Lot Seamguard Endopath 60 [id number] - [id number] Implanted:Qt y: 1 on 12/24/2024 by Satya Shaikh MD at [facility] Biological N/A: Stomach [employer] [id number] 07/29/2027 [id number] / / [id number] Seamguard Endopath 60 [id number] - [id number] Implanted:Qt y: 1 on 12/24/2024 by Satya Shaikh MD at [facility] Biological N/A: Stomach [employer] [id number] 07/29/2027 [id number] / / [id number] Seamguard Endopath 60 [id number] - [id number] Implanted:Qt y: 1 on 12/24/2024 by Satya Shaikh MD at [facility] Biological N/A: Stomach [employer] [id number] 07/29/2027 [id number] / / [id number] Seamguard Endopath 60 [id number] - [id number] Implanted:Qt y: 1 on 12/24/2024 by Satya Shaikh MD at [facility] Biological N/A: Stomach [employer] [id number] 07/29/2027 [id number] / / [id number] Relish Blender Ligamax Endo Multi Clip 5mm El5ml - [id number] Implanted:Qt y: 1 on 12/24/2024 by Satya Shaikh MD at [facility] Clip N/A: Stomach [employer]- [employer] [id number] 08/30/2029 EL5ML / / [id number] Knee Foot Lens Procedures Procedure Name Priority Date/Time Associated Diagnosis Comments HEMOGLOBIN A1C Routine 12/25/2024 5:45 AM SUPPLIER SPECIALIST from Last 3 Months or Most Recently Relevant to Health Maintenance Results * HEMOGLOBIN A1C (12/25/2024 5:45 AM SUPPLIER SPECIALIST) HEMOGLOBIN A1C 4.8 <=5.6 % 12/25/2024 7:19 AM SUPPLIER SPECIALIST [facility] EST. AVG GLUCOSE, A1C 91 mg/dL 12/25/2024 7:19 AM [facility] Blood Venipuncture / Unknown 12/25/2024 5:45 AM SUPPLIER SPECIALIST 12/25/2024 6:32 AM SUPPLIER SPECIALIST Narrative [facility] - 12/25/2024 7:19 AM SUPPLIER SPECIALIST HGB A1C INTERPRETATION NORMAL: <5.7% PRE-DIABETES: 5.7 - 6.4% DIABETES: 6.5% OR GREATER us Satya Shaikh MD CHEMISTRY ORDERABLES Final Resul t [facility] CLIA # [id number] [address] [place] [id number] from Last 3 Months or Most Recently Relevant to Health Maintenance Insurance [employer] Medicare Part D Advance Directives For more information, please contact: [phone] * Full Code (Latest Code Status on File) Date Activated Date Inactivated Comments 12/24/2024 12:45 PM 12/25/2024 6:15 PM * Full Code Date Activated Date Inactivated Comments 12/24/2024 11:13 AM 12/24/2024 12:45 PM
--- OUTSIDE RECORDS SUMMARY | 2025-06-20 06:50 | XMS_ITS | Encounter Summary ---
Author Organization [facility] Address [address] [place] [address] Phone Care Team Providers Care Clinical Appeals Specialist Name Role Phone Shanell Diana APRN, BALE COVERER Unavailable [phone] Tina Gallagher Primary Care Provider + Rukhsana Guzman MD Unavailable [phone] Reason for Visit * Reason Comments Medication Refill Encounter Details Date Type Department Care Team (Late st Contact Info) Description 04/14/2023 Refill [facility] [address] [place] [address] Tina Gallagher PAC [address] [place] [address] Medication Refill Social History Tobacco Use Types [...] 10/14/22 Office Visit Tina Gallagher PAC [facility] Showing recent visits within past 182 days and meeting all other requirements Future Appointments Date Type Provider Dept 06/02/23 Appointment Tina Gallagher PAC [facility] Showing future appointments within next 90 days and meeting all other requirements documented in this encounter Plan of Treatment Upcoming Encounters Date Type Department Care Team (Late st Contact Info) Description 07/05/2025 8:45 AM CDT Office Visit [facility] - [place] [address] [place] [address] Tina Gallagher PAC [address] [place] [address] documented as of this encounter Visit Diagnoses Not on filedocumented in this encounter Additional Health Concerns Assessment Noted Time PHQ-9 Depression Total Score: 0 10/14/20 22 1:00 PM IMPORT DISPATCHER documented as of this encounter Care Teams Clinical Appeals Specialist Relationship Specialty Start Date End Date Tina Gallagher PAC [address] [place] [address] PCP - General Physician Rubber Production Machine Operator 01/01/19 Shanell Diana, LONG DISTANCE BILLING OPERATOR, BALE COVERER Certified Nurse Practitioner 09/06/16 Rukhsana Guzman MD [address] [place] [address] Obstetrics & Gynecology 01/11/19 documented as of this encounter
--- OUTSIDE RECORDS SUMMARY | 2025-06-20 06:50 | XMS_ITS | Clinical Summary ---
Author Organization [facility] Address [address] [place] [address] Phone Care Team Providers Care Soyfreeze Operator Name Role Phone Shanell Diana APRN, SHRINK PIT OPERATOR Unavailable [phone] Tina Gallagher Primary Care Provider + Rukhsana Guzman MD Unavailable [phone] Allergies Active Allergy Reactions Criticality Noted Date Comments Tramadol Nausea 07/06/2019 Medications hydroxychloroquine (PLAQUENIL) 200 MG Tablet Take 2 Tablets by mouth daily. 1 Active Rinvoq 15 MG TABLET SR 24 HR 3 Active tiZANidine (ZANAFLEX) 2 MG Tablet Take 1 Tablet by mouth 3 times daily as needed for Muscle spasms. 30 Tablet 5 Active omeprazole (PriLOSEC) 40 MG CAPSULE DELAYED RELEASE TAKE 1 CAPSULE BY MOUTH EVERY MORNING 90 Capsule 1 5 Active DULoxetine (CYMBALTA) [address] Particles Take 1 Capsule by mouth daily. 90 Capsule 1 5 Active HYDROcodone-acetam inophen (NORCO) 5-325 MG [...] needed for Severe pain. 45 Tablet 5 06/17/20 25 Discontin ued(Reord er) Active Problems Problem Noted Date Diagnosed Date PMR (polymyalgia rheumatica) 02/21/2025 Migraine headache Vitamin D deficiency Osteopenia Obesity Overview (09/16/2015): BMI 31 Hemorrhoids Genital atrophy of female Dyspareunia Encounters Date Type Department Care Team Description 06/17/2025 MyChart RX Renewal [facility] [address] [place] [address] Chelsea Gonzalez, DEMAND PLANNING ANALYST, SHRINK PIT OPERATOR Medication Renewal Reviewed 05/15/2025 MyChart RX Renewal [facility] [address] [place] [address] Tina Gallagher PAC Medication Renewal Reviewed 04/22/2025 [facility] [place] [address] Tina Gallagher PAC Medication Refill 04/15/2025 MyChart RX Renewal [facility] [address] [place] [address] Tina Gallagher PAC Medication Renewal Reviewed 04/09/2025 Telephone [facility] [address] [place] [address] Tina Gallagher PAC Follow-up 03/29/2025 Refill [facility] [address] [place] [address] Tina Gallagher PAC Medication Refill from Last 3 Months Immunizations Immunization Administration [...] = 0.6 oz pur e alcohol) RARELY [employer] Utilities Answer Date Recorded In the past 12 months has [employer], oil, or water [employer] threatened to shut off services in your home? No 02/19/2025 Social Connection and Isolation Panel Answer Date Recorded In a typical week, how many times do you talk on the phone with family, friends, or neighbors? Twice a week 02/19/2025 How often do you get together with friends or re latives? Once a week 02/19/2025 How often do you attend episcopal or jewish serv ices? Never 02/19/2025 Do you belong [...] Total Score - Questions 1-9 0 11/01 [facility] - Occupational Stress Questionnaire Answer Date Recorded [...] in a jail (including now)? No 03/06/2024 Housing Stability Vital Sign Answer Kyle e Recorded In the last 12 months, was t here a time when you were not able to pay the mortgage or rent on time? No 02/19/2025 In the past 12 months, how m any times have you moved where you were living? 0 02/19/2025 At any time in the past 12 m [facility], were you homeless or living in a jail (including now)? No 02/19/2025 Education Answer Date [...] CDT Respiratory Rate 16 12/27/2024 2:45 PM COFFEE SHOP AIDE Oxygen Saturation 98% 02/21/2025 1:37 PM CDT Inhaled Oxygen Concentration - - Weight 93 kg (205 lb) 02/21/2025 1:37 PM CDT Height 160 cm (5' 3) 02/21/2025 1:37 PM CDT Body Mass Index 36.31 02/21/2025 1:37 PM CDT Plan of Treatment Upcoming Encounters Date Type Department Care Team (Late st Contact Info) Description 07/05/2025 8:45 AM CDT Office Visit [facility] Medical [facility] - Family [facility] [address]2 [place] [address] Tina Gallagher, PAC [address] [place] [address] Health Maintenance Due Date Last Done Comments TdaP Immunization 1956 Cologuard 2001 Immunochemical Fecal Occult Blood 2001 Pneumococcal Immunization (50+ years) (1 of 1 - PCV) 2006 Hepatitis B Immunization (1 of 3 - Risk 3-dose series) 2016 Respiratory Syncytial Virus (RSV) Immunization (Adult) (1 - Risk 60-74 years 1-dose series) 2016 SARS-COV-2 Immunization ( season) 2024 09/10/2022, 08/07/2021, 11/10/2020, Additional history exists Mammogram 05/28/2025 05/28/2024, 04/0 02/2023, 05/28/2021, Additional history exists Influenza Immunization (#1) 07/01/202507/31, 07/10/2024, 08/19/2023, Additional history exists DEXA Bone Density 08/10/2025 08/10/2023 Colonoscopy 06/14/2027 06/14/2019, 06/25/2011 Colorectal Cancer Screening 06/14/2027 Hepatitis C Virus (HCV) Screening Completed 11/07/2018 Zoster Immunization Completed 01/23/2022, 2 Human Papillomavirus (HPV) Immunization Aged Out No longer eligible based on patient's age to complete this topic Meningococcal Immunization (ACWY) Aged Out No longer eligible based on patient's age to complete this topic Rotavirus Immunization Aged Out No lo nger eligible based on patient's age to complete this topic Procedures Procedure Name Priority Date/Time Associated Diagnosis Comments REKHA SCREENING BILATERAL DIGITAL W CAD Routine 05/28/2024 12:00 AM CDT Screening mammogram for breast cancer HM COLONOSCOPY Routine 06/14/2019 HEPATITIS C ANTIBODY Routine 11/07/2018 from Last 3 Months or Most Recently Relevant to Health Maintenance Results * REKHA SCREENING BILATERAL DIGITAL W CAD (05/28/2024 12:00 AM CDT) Anatomical Region Laterality Modality breast Bilateral Mammography 05/28/2024 Tina Gallagher PAC IMG MAMMO ORDERABLES Fin al Result * HM COLONOSCOPY (06/14/2019) Gerry Tamica Vladimir DO PROCEDURE/MINOR SURGICAL ORDERA BLES Final Result * HEPATITIS C ANTIBODY (11/07/2018) Blood specimen (specimen) Nathaly Kay MD CHEMISTRY ORDERABLES Final Res ult from Last 3 Months or Most Recently Relevant to Health Maintenance [place] [address] MEDICARE C ESSENCE Care Teams Soyfreeze Operator Relationship Specialty Start Date End Date Tina Gallagher PAC [address] [place] [address] PCP - General Physician Drink Box Mechanic 01/01/19 Shanell Diana, DEMAND PLANNING ANALYST, SHRINK PIT OPERATOR Certified Nurse Practitioner 09/06/16 Rukhsana Guzman MD [address] [place] [address] Obstetrics & Gynecology 01/11/19
--- OUTSIDE RECORDS SUMMARY | 2025-06-20 06:50 | XMS_ITS | Encounter Summary ---
Author Organization [facility] Address [address] [place] [address] Care Team Providers Care Education Coordinator Name Role Phone Unavailable Primary Care Provider Unavailabl e Encounter Details Date Type Department Care Team (Late st Contact Info) Description 12/10/2024 Abstract [facility] [address] [place] [address] [place] [address] Satya Shaikh MD [address] [place] [id number] Social History Tobacco Use Types Packs/Day Years [...] on file Legal Sex Female 10:20 AM WHEAT GROWER Gender Identity Not on file Sexual Orientation Not on file documented as of this encounter Plan of Treatment Not on file documented as of this encounter Visit Diagnoses Not on filedocumented in this encounter
--- OUTSIDE RECORDS SUMMARY | 2025-06-20 06:50 | XMS_ITS | Encounter Summary ---
Author Organization [facility] Address [address] [place] [address] Phone Care Team Providers Care Field Sales Agent Name Role Phone Shanell Diana APRN, MANAGER CASE Unavailable [phone] Tina Gallagher Primary Care Provider + Rukhsana Guzman MD Unavailable [phone] Reason for Visit * Reason Comments Medication Refill Encounter Details Date Type Department Care Team (Late st Contact Info) Description 09/30/2022 Refill [facility] [address] [place] [address] Tina Gallagher PAC [address] [place] [address] Medication Refill Social History Tobacco Use Types [...] tabs +1 #60 = 15 day supply T DEMONSTRATOR documented in this encounter Plan of Treatment Upcoming Encounters Date Type Department Care Team (Late st Contact Info) Description 07/05/2025 8:45 AM CDT Office Visit [facility] [address] [place] [address] Tina Gallagher PAC [address] [place] [address] documented as of this encounter Visit Diagnoses Not on filedocumented in this encounter Additional Health Concerns Assessment Noted Time PHQ-9 Depression Total Score: 0 05/07/20 21 8:00 AM CDT documented as of this encounter Care Teams Field Sales Agent Relationship Specialty Start Date End Date Tina Gallagher PAC [address] [place] [address] PCP - General Physician Twisting Machine Operator 01/01/19 Shanell Diana, BUSINESS DIRECTOR, MANAGER CASE Certified Nurse Practitioner 09/06/16 Rukhsana Guzman MD [address] [place] [address] Obstetrics & Gynecology 01/11/19 documented as of this encounter
--- OUTSIDE RECORDS SUMMARY | 2025-06-20 06:50 | XMS_ITS | Patient Health Record ---
Author Organization [facility] ([address]) Address [address] [place] [address] Care Team Providers Care Paintings Restorer Name Role Phone Kobi Misael Unavailable [phone] Reason For Referral No Information Plan Of Treatment No Information
--- OUTSIDE RECORDS SUMMARY | 2025-06-20 06:50 | XMS_ITS | Encounter Summary ---
Author Organization [facility] Address [address] [place] [address] Phone Care Team Providers Care Box Brander Name Role Phone Shanell Diana APRN, SENIOR GRANT WRITER Unavailable [phone] Tina Gallagher Primary Care Provider + Rukhsana Guzman MD Unavailable [phone] Reason for Visit * Reason Comments Medication Refill Encounter Details Date Type Department Care Team (Late st Contact Info) Description 09/02/2023 Refill [facility] [address]2 [place] [address] [place] [address] [place] [address] Medication Refill Social History Tobacco Use Types [...] Visit [facility] [address] [place] [address] Tina Gallagher PAC [address] [place] [address] documented as of this encounter Visit Diagnoses Not on filedocumented in this encounter Additional Health Concerns Assessment Noted Time PHQ-9 Depression Total Score: 0 10/14/20 22 1:00 PM HEAD TRACK COACH documented as of this encounter Care Teams Box Brander Relationship Specialty Start Date End Date Tina Gallagher PAC [address] [place] [address] PCP - General Physician Roller Hand 01/01/19 Shanell Dinaa, LENS SILVERER, SENIOR GRANT WRITER Certified Nurse Practitioner 09/06/16 Rukhsana Guzman MD [address] [place] [address] Obstetrics & Gynecology 01/11/19 documented as of this encounter
--- OUTSIDE RECORDS SUMMARY | 2025-06-20 06:50 | XMS_ITS | Encounter Summary ---
Author Organization [facility] Address [address] [place] [address] Care Team Providers Care Building Architectural Designer Name Role Phone Unavailable Primary Care Provider Unavailabl e Encounter Details Date Type Department Care Team (Late st Contact Info) Description 06/18/2025 External Device Data [facility] ABSTRACTION Provider, Abstract NO ADDRESS ON FILE Social History Tobacco Use Types Packs/Day Years Used Date Smoking Tobacco: Former Cigarettes Q uit: 2004 Alcohol Use Standard Drinks/Week Comments Not Currently [...] on file Legal Sex Female 10:20 AM PINION SORTER Gender Identity Not on file Sexual Orientation Not on file documented as of this encounter Plan of Treatment Not on file documented as of this encounter Visit Diagnoses Not on filedocumented in this encounter
[2025-06-20 07:37] LABS: Hematocrit 39.2 % (37.0-47.0); Hemoglobin 13.4 g/dL (12.0-15.0); Immature Granulocyte Percent A 0.2 % (0-0.5); Lymphocytes Absolute Auto 1.23 K/mm3 (0.9-3.2); Mean Corpuscular HGB Conc 34.2 g/dl (32-36); Mean Corpuscular Hemoglobin 34.3 pg (26-34); Mean Corpuscular Volume 100.3 fl (80-100); Nucleated Red Blood Cells Absolute Auto 0.000 K/mm3 (0.0-0.012); Nucleated Red Blood Cells Perc 0.0 % (0.0-0.2); Platelet Count Result 257 k/mm3 (150-375); Red Blood Count 3.91 M/mm3 (4.2-5.4); White Blood Count 4.4 K/mm3 (4.5-10.0)
[2025-06-20 07:50] LABS: Add Urine Microscopic? YES; Appearance Urine Clear (Clear); Glucose Urine UA Negative (Negative); Leukocyte Esterase Ur 1+ LEU/UL (Negative); Need Manual Microscopic Reviewed; Nitrate Urine Negative (Negative); Non Pathogenic Casts 0-2; Specific Grav Ur 1.013 (1.001-1.035)
[2025-06-20 07:52] LABS: Alanine Aminotransferase 23 U/L (6-35); Albumin Level 4.3 g/dL (3.5-5.1); Alkaline Phosphatase 51 U/L (38-126); Anion Gap 6 mmol/L (4-12); Aspartate Amino Transferase 34 U/L (14-36); Bilirubin,Total 0.8 mg/dL (0.2-1.3); Blood Urea Nitrogen 19 mg/dL (7-17); CRP < 0.5 mg/dL (<1.0); Calcium 9.2 mg/dL (8.4-10.2); Carbon Dioxide 28 mmol/L (22-30); Chloride 103 mmol/L (98-107); Estimated Glomerular Filt Rate > 60; Glucose 87 mg/dL (65-110); Potassium 4.1 mmol/L (3.4-5.0); Sodium 137 mmol/L (137-145); Total Protein 6.8 g/dL (6.3-8.2)
== END 2025-06-20 06:46 | disposition home or self-care (01) ==
PROVIDERS: PCP Physician Assistant; Visit Provider Internal Medicine
DX: M06.09 Rheumatoid arthritis without rheumatoid factor, multiple sites (principal); Z79.899 Other long term (current) drug therapy
CPT/HCPCS: 36415; 80053; 81001; 84100; 85025; 85652; 86140

== ENCOUNTER 2025-07-18 06:47 | Outpatient (CLI) | payer OTHER, SELFPAY | END 2025-07-18 06:48 | disposition home or self-care (01) | LOC: ANHLAB 06:52 | PROVIDERS: PCP Physician Assistant; Visit Provider Internal Medicine | DX: M06.9 Rheumatoid arthritis, unspecified (principal) | CPT/HCPCS: 81490 ==

== ENCOUNTER 2025-09-25 07:04 | Outpatient (CLI) | payer OTHER, SELFPAY ==
--- NOTE | ~2025-09-25 | XR_ITS ---
EXAMINATION: XR knee LT min 4V, 09/25/2025 7:30 WARP PREPARER HISTORY: Z96.652 - Presence of left artificial knee joint COMPARISON: No comparisons available. Findings: No acute fracture or malalignment. Distal femoral arthroplasty appears intact, there is no fracture or dislocation identified. There are moderate degenerative changes of the medial and lateral joint spaces with small effusion. Soft tissues unremarkable. Impression: No acute fracture or malalignment. Reviewed, dictated and finalized at location P. PREPARER Impression: No acute fracture or malalignment.
--- NOTE | ~2025-09-25 | XR_ITS ---
EXAMINATION: XR knee RT min 4V, 09/25/2025 7:30 EMERGENCY DEPARTMENT CLINICIAN HISTORY: M25.561 - Pain in right knee COMPARISON: No comparisons available. Findings: No acute fracture or malalignment. 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 Impression: No acute fracture or malalignment. Reviewed, dictated and finalized at location P. GENCY DEPARTMENT CLINICIAN Impression: No acute fracture or malalignment.
== END 2025-09-25 07:05 | disposition home or self-care (01) ==
LOC: MICIMG 07:06
PROVIDERS: PCP Physician Assistant; Visit Provider Orthopaedic Surgery
DX: M25.561 Pain in right knee (principal); M25.562 Pain in left knee; Z96.652 Presence of left artificial knee joint
CPT/HCPCS: 73564

== ENCOUNTER 2025-10-16 14:38 | Outpatient (CLI) | payer OTHER, SELFPAY ==
--- OUTSIDE RECORDS SUMMARY | 2024-07-26 11:30 | XMS_ITS ---
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 ETYMOLOGY TEACHER Weight Loss. * Medical History: Objective: * Vitals: Assessment: Plan: * Treatment: * Billing Information: * Visit Code: * Procedure Codes: * Electronic signature of Godfrey Peace MD, FAAAAI on 10/16/2025 at 05:27 PM LINE LEAD Sign off status: Pending * Provider: Ranjana Peace MD Date: 0 07/26/2024 Generated for Printi ng/Faurvashig/eTransmitting on: 1 12/17/2024 05:27 PM LINE LEAD
--- OUTSIDE RECORDS SUMMARY | 2024-09-06 11:30 | XMS_ITS ---
Author Organization [facility] [employer] [place] ([address]) Address [address] [place] [phone] Care Team Providers Care Test Design Engineer Name Role Phone Kobi Misael Arango [phone] REASON FOR VISIT New Pt-Weight Loss Encounters Encounter Location Date Provider Diagnosis [facility] [address] [place] [phone] 09/06/2024 Misael Peace Plan Of Treatment No Information Progress Notes * Ciarra RAINEYDOB:1955 (69 yo F)Acc No.[id number]:09/06/2024 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 New Pt-Weight Loss. * Medical History: Objective: * Vitals: Assessment: Plan: * Treatment: * Billing Information: * Visit Code: * Procedure Codes: * Electronic signature of Godfrey Peace MD, FAAAAI on 10/16/2025 at 05:26 PM RESEARCH & INSIGHTS EXECUTIVE Sign off status: Pending * Provider: Ranjana Peace MD Date: 11/06/2023 Generated for Herbi emilie/Eliel/eTransmitting on: 12/17/2024 05:26 PM RESEARCH & INSIGHTS EXECUTIVE
--- NOTE | ~2025-10-16 | CT_ITS ---
EXAMINATION: CT_LERTCWO_CT DATE: 10/16/2025 15:10 INDICATION: Right knee osteoarthritis for preoperative planning TECHNIQUE: High resolution computed tomography (CT) of the right lower extremity from the hip through the ankle was performed without intravenous contrast. Additional sagittal and coronal reconstructions were performed. Automated exposure control and iterative reconstruction technique were employed. The dose- length product was 1976.59 mGy-cm. COMPARISON: None FINDINGS: Bone alignment is normal. No fracture or suspected osteonecrosis. Chondrocalcinosis at the medial and lateral menisci. There is tricompartmental osteoarthritis at the right knee, severe at the lateral side of the patellofemoral compartment with there is extensive subarticular cystlike changes and moderate to large marginal osteophytes. Mild joint space narrowing the medial compartment and small marginal osteophytes in both the medial and lateral compartments. Sclerotic bone island at the junction of the trochlear groove and the intercondylar notch. No right knee joint effusion. Mild osteoarthritis at the right hip and moderate osteoarthritis with vacuum phenomena at the bilateral sacroiliac joints. Severe lower lumbar spondylosis. Minimal to mild osteoarthritis at multiple joints at the right foot. No free fluid in the pelvis. No pathologically enlarged right pelvic or inguinal lymphadenopathy. IMPRESSION: 1. 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 Reviewed, dictated and finalized at location A. ITION SETTER IMPRESSION: 1. Tricompartmental osteoarthritis at the right knee, severe in the patellofemo ral compartment and mild with chondral calcinosis in the medial and lateral com partments.
--- NOTE | 2025-10-16 15:19 | ECG_ITS ---
Test Date: 2025-10-16 15:35:24 Measurements Intervals [place] Rate: 79 P: 52 DC: 168 QRS: 6 QRSD: 82 T: 41 QT: 349 QTc: 402 Interpretive Statements SINUS RHYTHM CONSIDER INFERIOR INFARCT, AGE INDETERMINATE BASELINE ARTIFACT- I, II, III, AVR, AVL, AVF ABNORMAL ECG No previous ECG available for comparison Electronically Signed On 10-16-2025 15:38:40 DUCK FARMER by Mikey Sotelo D.O.
[2025-10-16 15:26] LABS: Hematocrit 40.5 % (37.0-47.0); Hemoglobin 13.6 g/dL (12.0-15.0)
[2025-10-16 15:36] LABS: Albumin Level 4.8 g/dL (3.5-5.1); Estimated Glomerular Filt Rate > 60
--- OUTSIDE RECORDS SUMMARY | 2025-10-16 17:27 | XMS_ITS | Encounter Summary ---
Author Organization [facility] Address [address] [place] [address] Care Team Providers Care Optometrist Name Role Phone Unavailable Primary Care Provider Unavailabl e Encounter Details Date Type Department Care Team (Late st Contact Info) Description 12/10/2024 Abstract [facility] Operating Room [address] [address] [place] [address] [facility] 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
--- OUTSIDE RECORDS SUMMARY | 2025-10-16 17:27 | XMS_ITS | Encounter Summary ---
Author Organization [facility] Address [address] [place] [address] Phone Care Team Providers Care Customer Relations Advisor Name Role Phone Shanell Diana APRN, CASHIERS SUPERVISOR Unavailable [phone] Tina Gallagher Primary Care Provider + Rukhsana Guzman MD Unavailable [phone] Jose G Solis MD Unavailable Reason for Visit * Reason Comments Medication Refill Encounter Details Date Type Department Care Team (Late st Contact Info) Description 09/30/2022 Refill [facility] #2 [place] [phone] Tina Gallagher PAC [address] [place] [address] Medication Refill Social History Tobacco Use Types Packs/Day Years Used Date Smoking Tobacco: Former Cigarettes 0 Q uit: 07/21/2014 Smokeless Tobacco: Never Alcohol [...] tabs +1 #60 = 15 day supply ESSOR OF EARLY CHILDHOOD EDUCATION documented in this encounter Plan of Treatment Upcoming Encounters Date Type Department Care Team (Late st Contact Info) Description 12/06/2025 9:40 AM PROFESSOR OF EARLY CHILDHOOD EDUCATION Office Visit [facility] [address] [place] [address] Tina Gallagher PAC [address] [place] [address] documented as of this encounter Visit Diagnoses Not on filedocumented in this encounter Additional Health Concerns Assessment Noted Time PHQ-9 Depression Total Score: 0 05/07/20 21 8:00 AM CDT documented as of this encounter Care Teams Customer Relations Advisor Relationship Specialty Start Date End Date Tina Gallagher PAC [address] [place] [address] PCP - General Physician Cut Off Tender Glass 01/01/19 Shanell Diana, SERVICE DELIVERY MANAGER, CASHIERS SUPERVISOR Certified Nurse Practitioner 09/06/16 Rukhsana Guzman MD [address] [place] [address] Obstetrics & Gynecology 01/11/19 Jose G Dean MD #[address] [address] Consulting Physician Colon and Rectal Surgery 07/23/25 documented as of this encounter
--- OUTSIDE RECORDS SUMMARY | 2025-10-16 17:27 | XMS_ITS | Encounter Summary ---
Author Organization [facility] Address [address] [place] [address] Phone Care Team Providers Care Digital Marketing Apprentice Name Role Phone Shanell Diana APRN, CHAIN PULLER Unavailable [phone] Tina Gallagher Primary Care Provider + Rukhsana Guzman MD Unavailable [phone] Jose G Dean MD Unavailable Reason for Visit * Reason Comments Medication Refill Encounter Details Date Type Department Care Team (Late st Contact Info) Description 09/02/2023 Refill [facility] [address] [place] [address] [place] [address] [place] [address] Medication Refill Social History Tobacco Use Types [...] st Contact Info) Description 12/06/2025 9:40 AM HYDRAULIC PRESS TENDER Office Visit [facility] Medical Group - Family [facility] [address] [place] [address] Tina Gallagher PAC [address] [place] [address] documented as of this encounter Visit Diagnoses Not on filedocumented in this encounter Additional Health Concerns Assessment Noted Time PHQ-9 Depression Total Score: 0 10/14/20 22 1:00 PM HYDRAULIC PRESS TENDER documented as of this encounter Care Teams Digital Marketing Apprentice Relationship Specialty Start Date End Date Tina Gallagher PAC [address] [place] [address] PCP - General Physician Engineer Byproduct 01/01/19 Shanell Diana, MAGAZINE JOURNALIST, CHAIN PULLER Certified Nurse Practitioner 09/06/16 Rukhsana Guzman MD [address] [place] [address] Obstetrics & Gynecology 01/11/19 Jose G Dean MD [address] [address] Consulting Physician Colon and Rectal Surgery 07/23/25 documented as of this encounter
--- OUTSIDE RECORDS SUMMARY | 2025-10-16 17:27 | XMS_ITS | Encounter Summary ---
Author Organization [facility] Address [address] [place] [address] Phone Care Team Providers Care Swimming Pool Maintenance Supervisor Name Role Phone Shanell Diana APRN, TRUCK SERVICE TECHNICIAN Unavailable [phone] Tina Gallagher Primary Care Provider + Rukhsana Guzman MD Unavailable [phone] Jose G Dean MD Unavailable Reason for Visit * Reason Onset Date Comments Medication Refill 10/15/2025 Encounter Details Date Type Department Care Team (Late st Contact Info) Description 10/15/2025 MyChart RX Renewal [facility] - Family Medicine [facility] [address] [place] [address] Chelsea Gonzalez, CHIEF PHARMACIST, TRUCK SERVICE TECHNICIAN [address] [place] [address] Medication Renewal Request Social History Tobacco Use Types Packs/Day Years Used Date Smoking Tobacco: Former Cigarettes 0.3 37.7 1 977 - 07/21/2014 Smokeless Tobacco: Never Alcohol Use Standard Drinks/Week Comments Yes 0 (1 standard drink = 0.6 oz pur e alcohol) RARELY [facility] Utilities Answer Date Recorded In the past [...] week 02/19/2025 How often do you attend sabianism or orthodox serv ices? Never 02/19/2025 Do you belong to any clubs o r organizations such as sabianism groups, unions, fraternal or athletic groups, or [...] Recorded Total Score - Questions 1-9 0 08/01 [employer] [facility] Occupat ional Health - Occupational Stress [...] place to sleep or slept in a fci (including now)? No 03/06/2024 Housing Stability Vital Sign Answer Kyle e Recorded In the last 12 months, was t here a time when you were not able to pay the mortgage or rent on time? No 02/19/2025 In the past 12 months, how m any times have you moved where you were living? 0 02/19/2025 At any time in the past 12 m [facility], were you homeless or living in a fci (including now)? No 02/19/2025 Education Answer Date [...] encounter Miscellaneous Notes * Telephone Encounter - Dali Mistry RN - 10/15/2025 2:21 PM CST Medication failed the protocol, provider to review and approve the medication order if appropriate. Requested Prescriptions Pending Prescriptions Disp Refills tiZANidine (ZANAFLEX) 2 MG Tablet 30 Tablet 0 Sig: Take 1 Tablet by mouth 3 times daily as needed for Muscle spasms. Not Delegated - Muscle Relaxants Protocol Failed - 10/15/2025 2:21 PM Failed - This refill cannot be delegated Failed - Not delegated, patient not between 1 and 65 years of age Passed - Visit with relevant provider in past 12 months or upcoming 90 days Recent Visits Date Type Provider Dept 08/23/25 Office Visit Tina Gallagher PAC [facility] 02/21/25 Office Visit Tina Gallagher, YUNG [facility] 11/21/24 Office Visit Tina Gallagher PAC [facility] 10/25/24 Office Visit Audi Hayes MD [facility] Showing recent visits within past 365 days and meeting all other requirements Future Appointments Date Type Provider Dept 12/06/25 Appointment Tina Gallagher PAC [facility] Showing future appointments within next 90 days and meeting all other requirements Passed - ALT less than 90 and AST less than 55 on record in past 12 months SGOT (AST) Date Value Ref Range Status 11/21/2024 30 6 - 42 U/L Final SGPT (ALT) Date Value Ref Range Status 11/21/2024 19 6 - 55 U/L Final NER TYPEWRITER documented in this encounter Plan of Treatment Upcoming Encounters Date Type Department Care Team (Late st Contact Info) Description 12/06/2025 9:40 AM ALIGNER TYPEWRITER Office Visit [facility] - Family Medicine [facility] [address] [place] [address] Tina Gallagher PAC [address] [place] [address] documented as of this encounter Visit Diagnoses Not on filedocumented in this encounter Additional Health Concerns Assessment Noted Time PHQ-9 Depression Total Score: 0 08/23/20 8:52 AM CDT documented as of this encounter Care Teams Swimming Pool Maintenance Supervisor Relationship Specialty Start Date End Date Tina Gallagher PAC [address] [place] [address] PCP - General Physician Metal Casket Maker 01/01/19 Shanell Diana, CHIEF PHARMACIST, TRUCK SERVICE TECHNICIAN Certified Nurse Practitioner 09/06/16 Rukhsana Guzman MD [address] [place] [address] Obstetrics & Gynecology 01/11/19 Jose G Dean MD [address] [address] Consulting Physician Colon and Rectal Surgery 07/23/25 documented as of this encounter
--- OUTSIDE RECORDS SUMMARY | 2025-10-16 17:27 | XMS_ITS | Clinical Summary ---
Author Organization [facility] Address [address] [place] [address] Phone Care Team Providers Care Business Services Associate Name Role Phone Shanell Diana IT NETWORK ADMINISTRATOR, BATTERY BUILDER Unavailable [phone] Tina Gallagher Primary Care Provider + Rukhsana Guzman MD Unavailable [phone] Jose G Dean MD Unavailable Allergies Active Allergy Reactions Criticality Noted Date Comments Tramadol Nausea 07/06/2019 Medications hydroxychloroquin e (PLAQUENIL) 200 MG Tablet Take 2 Tablets by mouth daily. 04/27/20 21 Active Rinvoq 15 MG TABLET SR 24 HR 02/10/20 23 Active colesevelam (WELCHOL) 625 MG Tablet TAKE 2 TABLETS BY MOUTH TWICE DAILY 360 Tablet 07/23/20 25 Active buPROPion (WELLBUTRIN) 150 MG XL tabletIndications :Seasonal affective disorder Take 1 Tablet by mouth every morning. 90 Tablet 1 08/23/20 25 Active HYDROcodone-aceta minophen (NORCO) 5-325 MG TabletIndications :PMR (polymyalgia rheumatica),Degen erative disc disease, lumbar,Osteoarthr itis of right knee, unspecified osteoarthritis type Take 1 Tablet by mouth every 4 hours as needed for Severe pain. 45 Tablet 09/18/20 25 Active omeprazole (PriLOSEC) 40 MG CAPSULE DELAYED RELEASE TAKE 1 CAPSULE BY MOUTH EVERY MORNING 90 Capsule 1 12/04/20 25 Active DULoxetine (CYMBALTA) [address] Particles TAKE 1 CAPSULE BY MOUTH DAILY 90 Capsule 1 10/14/20 25 Active tiZANidine (ZANAFLEX) 2 MG Tablet Take 1 Tablet by mouth 3 times daily as needed for Muscle spasms. 30 Tablet 10/15/20 25 Active tiZANidine (ZANAFLEX) 2 MG Tablet Take 1 Tablet by mouth 3 times daily as needed for Muscle spasms. 30 Tablet 02/12/20 25 025 Discontinued(Re order) omeprazole (PriLOSEC) 40 MG CAPSULE DELAYED RELEASE TAKE 1 CAPSULE BY MOUTH EVERY MORNING 90 Capsule 1 03/29/20 25 025 Discontinued DULoxetine (CYMBALTA) [address] Particles Take 1 Capsule by mouth daily. 90 Capsule 1 04/22/20 25 025 Discontinued HYDROcodone-aceta minophen (NORCO) 5-325 MG TabletIndications :PMR (polymyalgia rheumatica),Degen erative disc disease, lumbar,Osteoarthr itis of right knee, unspecified osteoarthritis type Take 1 Tablet by mouth every 4 hours as needed for Severe pain. 45 Tablet 08/20/20 25 025 Discontinued(Re order) Active Problems Problem Noted Date Diagnosed Date H/O gastric sleeve 08/23/2025 PMR (polymyalgia rheumatica) 02/21/2025 Migraine headache Vitamin D deficiency Osteopenia Obesity Overview (09/16/2015): BMI 31 Hemorrhoids Genital atrophy of female Dyspareunia Encounters Date Type Department Care Team Description 10/15/2025 MyChart RX Renewal [facility] [address] [place] [id number] Chelsea Gonzalez, IT NETWORK ADMINISTRATOR, BATTERY BUILDER Medication Renewal Request 10/15/2025 MyChart RX Renewal [facility] [address] [place] [id number] Tina Gallagher, YUNG Medication Renewal Request 10/14/2025 Refill [facility] [address] [place] [id number] Tina Gallagher PAC Medication Refill 10/03/2025 [facility]Chart [facility] [place] [address] Tina Gallagher PAC Medication Renewal Request 10/03/2025 [facility] [place] [address] Tina Gallagher PAC Medication Refill 09/17/2025 MyChart RX Renewal [facility] [address] [place] [address] Tina Gallagher PAC Medication Renewal Request 08/23/2025 9:00 AM CDT Office Visit [facility] [address] [place] [address] Tina Gallagher PAC PMR (polymyalgia rheumatica) (Primary Dx); High risk medication use; Osteoarthritis of both knees, unspecified osteoarthritis type; Screening mammogram for breast cancer; Post-menopausal; Seasonal affective disorder Discharge Disposition: Discharged to home or Selfcare 08/22/2025 Travel 08/20/2025 MyChart RX Renewal [facility] [address] [place] [address] Tina Gallagher PAC Medication Renewal Request 07/23/2025 9:30 AM CDT Office Visit [facility] [address] [address] Tina Gallagher PAC Kumar, Raman, MD Bleeding hemorrhoid (Primary Dx); Diarrhea, unspecified type Discharge Disposition: Discharged to home or Selfcare 07/23/[address] [facility] [address] [address] Jose G Dean MD Medication Refill 07/23/2025 Travel from Last 3 Months Immunizations Immunization Administration Dates Next Due Covid-19, Mrna, Lnp-s, Pf, 3 0 Mcg/0.3 Ml Dose (Pfizer) 11/10/2020,10/20/2020 Influenza Vaccine 08/10/2024,08/04/2018 Influenza Vaccine greater than 3 yrs 08/14/2022, 10/31/2011 Influenza Vaccine less than 3 yrs 07/10/2024, Influenza Vaccine, Quadrivalent, PF 07/14/2020,1 Influenza, Seasonal, Injectable, Undefined 08/14,08/04/2018,10/31/2011 Influenza, high-dose, trivalent, PF 08/07/2025 TD VACCINE 02/28/2014 Td (Adult) 02/28/2014 Zoster Vaccine Recombinant 01/23/2022,11/21/2021 Family History Medical History Relation Name Comments Cancer Brother JDN Cancer of the s tomach lining Osteoarthritis Brother JDN No Known Problems Daughter Cancer Father AIN Pancreas Diabetes Father AIN Hypertension Father AIN Pancreatic Cancer Father AIN No Known Problems Maternal Grandfather Cancer Maternal Grandmother MMK Uterus Cancer Mother MJN Stomach lung Lung Cancer Mother MJN Stomach Cancer Mother MJN Stroke Mother MJN No Known Problems Paternal Grandfather No Known Problems Paternal Grandmother Osteoarthritis Sister 1 LRN Rheumatoid Arthritis Sister 1 LRN Diabetes Sister 2 AIN Hypertension Sister 2 AIN Cancer Sister 3 AJG Uterus Osteoarthritis Sister 3 AJG Diabetes Sister 4 GLN Hypertension Sister 5 AJN Rheumatoid Arthritis Sister 5 AJN Thyroid Disease Sister 5 AJN Relation Name Status Comments Brother JDN Alive Daughter Alive Father AIN Maternal Grandfather Maternal Grandmother MMK Mother MJN Paternal Grandfather Paternal Grandmother Sister 1 LRN Sister 2 AIN Sister 3 AJG Alive Sister 4 GLN Alive Sister 5 AJN Alive Social History Tobacco Use Types Packs/Day Years Used Date Smoking Tobacco: Former Cigarettes 0.3 37.7 1 977 - 07/21/2014 Smokeless Tobacco: Never Tobacco Cessation:Counseling Given: Not Answered Alcohol Use Standard Drinks/Week Comments Yes 0 (1 standard drink = 0.6 oz pur e alcohol) RARELY [facility] Utilities Answer Date Recorded In the past 12 months has th e electric, gas, oil, or water [employer] threatened to shut off services in your home? No 02/19/2025 Social Connection and Isolation Panel Answer Date Recorded In a typical week, how many times do you talk on the phone with family, friends, or neighbors? Twice a week 02/19/2025 How often do you get together with friends or re latives? Once a week 02/19/2025 How often do you attend baptist or sabianist serv ices? Never 02/19/2025 Do you belong to any clubs o r organizations such as baptist groups, unions, fraternal or athletic groups, or [...] Recorded Total Score - Questions 1-9 0 102 01/2025 [facility] - [...] any time in the past 12 m [facility], were you homeless or living in a [...] Sign Reading Time Taken Comments Blood Pressure 126/70 08/23/2025 8:48 AM CDT Pulse 90 08/23/2025 8:48 AM CDT Temperature 36.3 C (97.4 F) 08/23/2025 8:48 AM CDT Respiratory Rate 16 12/27/2024 2:45 PM SOUND PRINTER Oxygen Saturation 98% 08/23/2025 8:48 AM CDT Inhaled Oxygen Concentration - - Weight 84.4 kg (186 lb) 08/23/2025 8:48 AM CDT Height 160 cm (5' 3) 08/23/2025 8:48 AM CDT Body Mass Index 32.95 08/23/2025 8:48 AM CDT Plan of Treatment Upcoming Encounters Date Type Department Care Team (Late st Contact Info) Description 12/06/2025 9:40 AM SOUND PRINTER Office Visit [facility] - [facility] [address] [place] [address] Tina Gallagher, PAC [address] [place] [address] Health Maintenance Due Date Last Done Comments TdaP Immunization 1956 Cologuard 2001 Immunochemical Fecal Occult Blood 2001 Pneumococcal Immunization (50+ years) (1 of 1 - PCV) 2006 Respiratory Syncytial Virus (RSV) Immunization (Adult) (1 - Risk 50-74 years 1-dose series) 2006 Hepatitis B Immunization (1 of 3 - Risk 3-dose series) 2016 Medicare Initial AWV [id number] 12/01/2022 Mammogram 05/28/2025 05/28/2024, 04/0 02/2023, 05/28/2021, Additional history exists SARS-COV-2 Immunization ( season) 2025 09/10/2022, 08/07/2021, 11/10/2020, Additional history exists DEXA Bone Density 08/10/2025 08/10/2023 Colonoscopy 06/14/2027 06/14/2019, 06/25/2011 Colorectal Cancer Screening 06/14/2027 Hepatitis C Virus (HCV) Screening Completed 11/07/2018 Zoster Immunization Completed 01/23/2022, Influenza Immunization Completed , 08/10/2024, 07/10/2024, Additional history exists Human Papillomavirus (HPV) Immunization (No Doses Required) Completed Meningococcal Immunization (ACWY) Aged Out No longer eligible based on patient's age to complete this topic Rotavirus Immunization Aged Out No lo nger eligible based on patient's age to complete this topic Procedures Procedure Name Priority Date/Time Associated Diagnosis Comments ORTHOPEDIC SURGERY CONSULT 09/25/2025 12:00 AM SOUND PRINTER XR - LOWER EXTREMITY 09/25/2025 12:00 AM SOUND PRINTER LIGATION OF HEMORRHOID(S) Routine 07/23/2025 9:30 AM CDT Bleeding hemorrhoid REKHA SCREENING BILATERAL DIGITAL W CAD Routine 05/28/2024 12:00 AM CDT Screening mammogram for breast cancer HM COLONOSCOPY Routine 06/14/2019 HEPATITIS C ANTIBODY Routine 11/07/2018 from Last 3 Months or Most Recently Relevant to Health Maintenance Results * XR - LOWER EXTREMITY (09/25/2025 12:00 AM SOUND PRINTER) 09/25/2025 us Provider Scan IMG DIAGNOSTIC ORDERABLES Final Result SCAN * ORTHOPEDIC SURGERY CONSULT (09/25/2025 12:00 AM SOUND PRINTER) 09/25/2025 us Provider Scan GENERIC SCAN ORDERS CONSULT Nini l Result Performing Organization Address City/[facility]/ZIP Co de Phone Number SCAN * LIGATION OF HEMORRHOID(S) (07/23/2025 9:30 AM CDT) Narrative Jose G Dean MD - 07/23/2025 9:30 AM CDT Jose G Dean MD 07/23/2025 10:08 AM Hemorrhoid Bandligation Procedure Note Indications: The patient had a history of bleeding from internal hemorrhoids as described in the office note. Pre-operative Diagnosis: Internal hemorrhoids with bleeding Post-operative Diagnosis: Internal hemorrhoids with bleeding @OPNOTEHEAD@ Procedure Details After discussion and acceptance of all risks, benefits and alternatives an anoscope was inserted into the anal canal. The hemorrhoid petechials were defined and a rivas band was applied to the left lateral hemorrhoids approximately 3cm above the dente line. Findings: There were moderate enlarged hemorrhoids in the left lateral quadrants Estimated Blood Loss: Minimal Drains: none Total IV Fluids: 0ml Specimens: none Implants: none Complications: None; patient tolerated the procedure well. Disposition: To home when the patient had fully recovered. Condition: stable Attending Attestation: I performed the procedure us Jose G Dean MD [place] - SURGERY Final Result * REKHA SCREENING BILATERAL DIGITAL W CAD (05/28/2024 12:00 AM CDT) Anatomical Region Laterality Modality breast Bilateral Mammography 05/28/2024 us Tina Gallagher PAC IMG MAMMO ORDERABLES Fin al Result * COLONOSCOPY (06/14/2019) us Gerry Gilbert DO PROCEDURE/MINOR SURGICAL ORDERA BLES Final Result * HEPATITIS C ANTIBODY (11/07/2018) Blood specimen (specimen) us Nathaly Kay MD CHEMISTRY ORDERABLES Final Res ult from Last 3 Months or Most Recently Relevant to Health Maintenance Insurance MEDICARE C [employer] Care Teams Business Services Associate Relationship Specialty Start Date End Date Tina Gallagher PAC [address] [place] [address] PCP - General Physician Mdm Developer 01/01/19 Shanell Diana, IT NETWORK ADMINISTRATOR, BATTERY BUILDER Certified Nurse Practitioner 09/06/16 Rukhsana Guzman MD [address] [place] [address] Obstetrics & Gynecology 01/11/19 Jose G Dean MD [address] [address] Consulting Physician Colon and Rectal Surgery 07/23/25
--- OUTSIDE RECORDS SUMMARY | 2025-10-16 17:27 | XMS_ITS | Patient Health Record ---
Author Organization [facility] ([address]) Address [address] [place] [address] Support Name Relationship Address Phone Ciarra Rainey Guarantor Unknown [phone] Reason For Referral No Information Plan Of Treatment No Information
--- OUTSIDE RECORDS SUMMARY | 2025-10-16 17:27 | XMS_ITS | Encounter Summary ---
Author Organization [facility] Address [address] [place] [address] Phone Care Team Providers Care Van Driver Name Role Phone Shanell Diana APRN, DIRECTOR PARK Unavailable [phone] Tina Gallagher Primary Care Provider + Rukhsana Guzman MD Unavailable [phone] Jose G Dean MD Unavailable Reason for Visit * Reason Comments Medication Refill Encounter Details Date Type Department Care Team (Late st Contact Info) Description 04/19/2024 Refill [facility] - [facility] [address] [place] [address] Leanna Rascon, COMPRESSOR BATTERY PELLETS, DIRECTOR PARK [address] [address] Medication Refill Social History Tobacco Use Types Packs/Day Years Used Date Smoking Tobacco: Former Cigarettes 0 Q uit: 07/21/2014 Smokeless Tobacco: Never Alcohol Use Standard Drinks/Week Comments Yes 0 (1 standard drink = 0.6 oz pur e alcohol) RARELY [facility] Utilities Answer Date Recorded In the [...] often do you attend chur ch or methodist services? Never 03/06/2024 Do you belong to any clubs o r organizations such as gnosticist groups, unions, fraternal or athletic groups, or [...] Total Score - Questions 1-9 0 07/2024 [facility] - Occupational [...] place to sleep or slept in a halfway (including now)? No 03/06/2024 Education Answer Date [...] st Contact Info) Description 12/06/2025 9:40 AM MEDICAL RECORDS TECH Office [facility] [address] [place] [address] Tina Gallagher PAC [address] [place] [address] documented as of this encounter Visit Diagnoses Not on filedocumented in this encounter Additional Health Concerns Assessment Noted Time PHQ-9 Depression Total Score: 0 03/08/20 24 3:14 PM CDT documented as of this encounter Care Teams Van Driver Relationship Specialty Start Date End Date Tina Gallagher PAC [address] [place] [address] PCP - General Physician Transitional Care Liaison 01/01/19 Shanell Diana APRN, DIRECTOR PARK Certified Nurse Practitioner 09/06/16 Rukhsana Guzman MD [address] [place] [address] Obstetrics & Gynecology 01/11/19 Jose G Dean MD [address] [address] Consulting Physician Colon and Rectal Surgery 07/23/25 documented as of this encounter
--- OUTSIDE RECORDS SUMMARY | 2025-10-16 17:27 | XMS_ITS | Clinical Summary ---
Author Organization [facility] Address [address] [address] [facility] [address] [address] Phone Care Team Providers Care Technology Risk Intern Name Role Phone Unavailable Primary Care Provider [...] 60 mL 300 mL 12/25/2024 3:48 PM PROTOZOOLOGIST 12/24/2024 Active ondansetron (ZOFRAN ODT) 4 mg [...] Encounters Date Type Department Care Team Description 08/21/2025 External Device Data STL ABSTRACTION Provider, Abstract 08/13/2025 External Device Data STL ABSTRACTION Provider, Abstract 08/13/2025 External Device Data STL ABSTRACTION Provider, Abstract 08/06/2025 External Device Data STL ABSTRACTION Provider, Abstract from Last 3 Months Social History Tobacco Use Types Packs/Day Years Used Date Smoking Tobacco: Former Cigarettes 0 Q uit: 2004 Tobacco Cessation:Counseling Given: Not [...] on file Legal Sex Female 10:20 AM PROTOZOOLOGIST Gender Identity Not on file Sexual Orientation Not on file Last Filed Vital Signs Vital Sign Reading Time Taken Comments Blood Pressure 134/59 12/25/2024 12:16 PM PROTOZOOLOGIST Pulse 74 12/25/2024 12:00 PM PROTOZOOLOGIST Temperature 36.7 C (98.1 F) 12/25/2024 7:23 AM PROTOZOOLOGIST Respiratory Rate 18 12/25/2024 12:00 PM PROTOZOOLOGIST Oxygen Saturation 98% 12/25/2024 12:00 PM PROTOZOOLOGIST Inhaled Oxygen Concentration - - Weight 95.8 kg (211 lb 3.2 oz) 12/24/2024 5:37 P M PROTOZOOLOGIST Height 157.5 cm (5' 2) 12/24/2024 5:37 PM PROTOZOOLOGIST Body Mass Index 38.63 12/24/2024 5:37 PM PROTOZOOLOGIST Plan of Treatment Health Maintenance Due Date Last Done Comments DTAP/TDAP/TD VACCINES (1 - Tdap) 1975 FIT-DNA Q 3 years 2001 FIT/FOBT Q 1 year 2001 Flex Sig/CT Colonography Q 5 years 2001 PNEUMOCOCCAL VACCINE 50+ YEA RS (1 of 1 - PCV) 2006 RSV VACCINE (60+ or ) (1 - Risk 50-74 years 1-dose series) 2006 OSTEOPOROSIS SCREENING 2021 BREAST CANCER SCREENING 05/28/2025 05/28/20 24, 05/28/2024, 05/28/2021 INFLUENZA VACCINE (#1) 2025 , 07/10/2024, 08/19/2023, Additional history exists COVID-19 Vaccine (3 - 2024-2 6 season) 2025 11/10/2020, 10/20/2020 Pre-Diabetes and Diabetes Screening 12/25/2027 12/25/2024 COLORECTAL SCREENING 06/14/2029 06/14/2019 Colorectal Cancer Screening 06/14/2029 ZOSTER VACCINE Completed 01/23/2022, 11/21/2021 Medical Devices Implanted Type Area Live In Caregiver Device Identifier Shelf Expiration Date Model / Serial / Lot Seamguard Endopath 60 [id number] - [id number] Implanted:Qt y: 1 on 12/24/2024 by Satya Shaikh MD at [facility] Biological N/A: Stomach [employer] [id number] 07/29/2027 [id number] / / [id number] Seamguard Endopath 60 [id number] - [id number] Implanted:Qt y: 1 on 12/24/2024 by Satya Shaikh MD at [facility] Biological N/A: Stomach [employer] [id number] 07/29/2027 [id number] / / [id number] Seamguard Endopath 60 [id number] - [id number] Implanted:Qt y: 1 on 12/24/2024 by Satya Shaikh MD at [facility] Biological N/A: Stomach [employer] [id number] 07/29/2027 [id number] / / [id number] Seamguard Endopath 60 [id number] - [id number] Implanted:Qt y: 1 on 12/24/2024 by Satya Shaikh MD at [facility] Biological N/A: Stomach [employer] [id number] 07/29/2027 [id number] / / [id number] Numerical Control Lathe Operator Ligamax Endo Multi Clip 5mm [id number] - [id number] Implanted:Qt y: 1 on 12/24/2024 by Satya Shaikh MD at [facility] Clip N/A: Stomach [employer] [id number] 08/30/2029 [id number] / / [id number] Knee Foot Lens Procedures Procedure Name Priority Date/Time Associated Diagnosis Comments HEMOGLOBIN A1C Routine 12/25/2024 5:45 AM PROTOZOOLOGIST from Last 3 Months or Most Recently Relevant to Health Maintenance Results * HEMOGLOBIN A1C (12/25/2024 5:45 AM PROTOZOOLOGIST) HEMOGLOBIN A1C 4.8 <=5.6 % 12/25/2024 7:19 AM PROTOZOOLOGIST [facility] EST. AVG GLUCOSE, A1C 91 mg/dL 12/25/2024 7:19 AM [facility] Blood Venipuncture / Unknown 12/25/2024 5:45 AM PROTOZOOLOGIST 12/25/2024 6:32 AM PROTOZOOLOGIST Narrative [facility] - 12/25/2024 7:19 AM PROTOZOOLOGIST HGB A1C INTERPRETATION NORMAL: <5.7% PRE-DIABETES: 5.7 - 6.4% DIABETES: 6.5% OR GREATER us Satya Shaikh MD CHEMISTRY ORDERABLES Final Resul t [facility] CLIA # [id number] [facility] [address] [place] [address] from Last 3 Months or Most Recently Relevant to Health Maintenance Insurance [facility] [place] [address] RX [employer] Medicare Part D Advance Directives For more information, please contact: [phone] * Full Code (Latest Code Status on File) Date Activated Date Inactivated Comments 12/24/2024 12:45 PM 12/25/2024 6:15 PM * Full Code Date Activated Date Inactivated Comments 12/24/2024 11:13 AM 12/24/2024 12:45 PM
--- OUTSIDE RECORDS SUMMARY | 2025-10-16 17:27 | XMS_ITS | Encounter Summary ---
Author Organization [facility] HealthCare Address [address] [place] [address] Phone Care Team Providers Care Supervisor Keymodule Assembly Name Role Phone Shanell Diana APRN, PAID INTERNSHIP Unavailable [phone] Tina Gallagher Primary Care Provider + Rukhsana Guzman MD Unavailable [phone] Jose G Dean MD Unavailable Reason for Visit * Reason Onset Date Comments Medication Refill 10/15/2025 Encounter Details Date Type Department Care Team (Late st Contact Info) Description 10/15/2025 MyChart RX Renewal [facility] - Family Medicine [facility] [address] [place] [id number] Tina Gallagher PAC [address] [place] [address] Medication Renewal Request Social History Tobacco Use Types Packs/Day Years Used Date Smoking Tobacco: Former Cigarettes 0.3 37.7 1 977 - 07/21/2014 Smokeless Tobacco: Never Alcohol Use Standard Drinks/Week Comments Yes 0 (1 standard drink = 0.6 oz pur e alcohol) [facility] Utilities Answer Date Recorded In the past [...] week 02/19/2025 How often do you attend yazidism or nondenominational serv ices? Never 02/19/2025 Do you belong to any clubs o r organizations such as yazidism groups, unions, fraternal or athletic groups, or [...] Total Score - Questions 1-9 0 08/01 [facility] - Occupational [...] place to sleep or slept in a [facility] (including now)? No 03/06/2024 Housing Stability Vital Sign Answer Kyle e Recorded In the last 12 months, was t here a time when you were not able to pay the mortgage or rent on time? No 02/19/2025 In the past 12 months, how m any times have you moved where you were living? 0 02/19/2025 At any time in the past 12 m [facility], were you homeless or living in a m[facility]p (including now)? No 02/19/2025 Education Answer Date [...] encounter Miscellaneous Notes * Telephone Encounter - Christi Myers RN - 10/16/2025 1:32 PM MAJOR LEAGUE BASEBALL PLAYER Dispensed Sold Days Supply Quantity Provider Pharmacy HYDROCODONE/ACETAMINOPHEN 5-325 TB 09/18/2025 No sold data 7 45 Each Tina Gallagher, [facility] #... Medication failed the protocol, provider to review and approve the medication order if appropriate. Requested Prescriptions Pending Prescriptions Disp Refills HYDROcodone-acetaminophen (NORCO) 5-325 MG Tablet 45 Tablet 0 Sig: Take 1 Tablet by mouth every 4 hours as needed for Severe pain. Not Delegated - Opioid Combinations Protocol Failed - 10/16/2025 1:32 PM Failed - This refill cannot be delegated Passed - Visit with relevant provider in past 12 months or upcoming 90 days Recent Visits Date Type Provider Dept 08/23/25 Office Visit Tina Gallagher PAC [facility] 02/21/25 Office Visit Tina Gallagher PAC [facility] 11/21/24 Office Visit Tina Gallagher PAC [facility] 10/25/24 Office Visit Audi Hayes MD [facility] Showing recent visits within past 365 days and meeting all other requirements Future Appointments Date Type Provider Dept 12/06/25 Appointment Tina Gallagher PAC [facility] Showing future appointments within next 90 days and meeting all other requirements R LEAGUE BASEBALL PLAYER * Telephone Encounter - Christi Myers RN - 10/16/2025 1:32 PM MAJOR LEAGUE BASEBALL PLAYER Dispensed Sold Days Supply Quantity Provider Pharmacy HYDROCODONE/ACETAMINOPHEN 5-325 TB 09/18/2025 No sold data 7 45 Each Tina Gallagher PAC [facility] #... R LEAGUE BASEBALL PLAYER documented in this encounter Plan of Treatment Upcoming Encounters Date Type Department Care Team (Late st Contact Info) Description 12/06/2025 9:40 AM MAJOR LEAGUE BASEBALL PLAYER Office Visit [facility] - [facility] - [place] [address] [place] [address] Tina Gallagher PAC [address] [place] [address] documented as of this encounter Visit Diagnoses Diagnosis PMR (polymyalgia rheumatica) Polymyalgia rheumatica Degenerative disc disease, lumbar Degeneration of lumbar or lumbosacral intervertebral disc Osteoarthritis of right knee, unspecified osteoarthritis type documented in this encounter Additional Health Concerns Assessment Noted Time PHQ-9 Depression Total Score: 0 08/23/20 25 8:52 AM CDT documented as of this encounter Care Teams Supervisor Keymodule Assembly Relationship Specialty Start Date End Date Tina Gallagher PAC [address] [place] [address] PCP - General Physician Manager Of Distribution 01/01/19 Shanell Diana, INTELLIGENCE DIRECTOR, PAID INTERNSHIP Certified Nurse Practitioner 09/06/16 Rukhsana Guzman MD [address] [place] [address] Obstetrics & Gynecology 01/11/19 Jose G Dean MD [address] [address] Consulting Physician Colon and Rectal Surgery 07/23/25 documented as of this encounter
--- OUTSIDE RECORDS SUMMARY | 2025-10-16 17:27 | XMS_ITS | Encounter Summary ---
Author Organization [facility] Address [address] [place] [address] Phone Care Team Providers Care Forming Mill Operator Name Role Phone Shanell Diana APRN, CUSTOMER LOYALTY REPRESENTATIVE Unavailable [phone] Tina Gallagher Primary Care Provider + Rukhsana Guzman MD Unavailable [phone] Jose G Solis MD Unavailable Reason for Visit * Reason Comments Medication Refill Encounter Details Date Type Department Care Team (Late st Contact Info) Description 04/14/2023 Refill [facility] - [facility] [address] [place] [id number] Tina Gallagher PAC [address] [place] [address] Medication Refill Social History Tobacco Use Types [...] 10/14/22 Office Visit Tina Gallagher PAC [facility] Showing recent visits within past 182 days and meeting all other requirements Future Appointments Date Type Provider Dept 06/02/23 Appointment Tina Gallagher PAC [facility] Showing future appointments within next 90 days and meeting all other requirements documented in this encounter Plan of Treatment Upcoming Encounters Date Type Department Care Team (Late st Contact Info) Description 12/06/2025 9:40 AM POWDER SHOVELER Office Visit [facility] - [facility] - [place] [address] [place] [address] Tina Gallagher, [facility] [address] [place] [address] documented as of this encounter Visit Diagnoses Not on filedocumented in this encounter Additional Health Concerns Assessment Noted Time PHQ-9 Depression Total Score: 0 10/14/20 22 1:00 PM POWDER SHOVELER documented as of this encounter Care Teams Forming Mill Operator Relationship Specialty Start Date End Date Tina Gallagher PAC [address] [place] [address] PCP - General Physician Phlebotomy Director 01/01/19 Shanell Diana, RADIAL ARM SAW OPERATOR, CUSTOMER LOYALTY REPRESENTATIVE Certified Nurse Practitioner 09/06/16 Rukhsana Guzman MD [address] [place] [address] Obstetrics & Gynecology 01/11/19 Jose G Dean MD [address] [address] Consulting Physician Colon and Rectal Surgery 07/23/25 documented as of this encounter
== END 2025-10-16 14:39 | disposition home or self-care (01) ==
PROVIDERS: PCP Physician Assistant; Visit Provider Orthopaedic Surgery
DX: M17.11 Unilateral primary osteoarthritis, right knee (principal); Z01.818 Encounter for other preprocedural examination; Z79.899 Other long term (current) drug therapy; I47.19 Other supraventricular tachycardia
CPT/HCPCS: 73700; 80307; 82040; 82565; 85014; 85018; 93005